=== PATIENT | male | born 1935 | race Caucasian/White ===

== ENCOUNTER 2017-07-16 17:38 | Observation (INO) | payer OTHER ==
--- NOTE | 2017-07-16 17:56 | PDOC ---
History of Present Illness - General History Source: Patient Exam Limitations: No Limitations - History of Present Illness Initial Comments: 07/16/17 18:58 82 y.o male with significant PMHx of COPD, active smoker, CHF (on 5mg of lasix but noncompliant over the past month), Afib (on coumadin), HLD, HTN, and psoriasis, who presents to the emergency room complaining of increased bilateral lower extremity swelling and SOB over the past several weeks. He states that he is unable to walk as many blocks as he used without becoming short of breath. Denies chest pain, cough.The patient notes that he had a mechanical fall onto his knees last week while visiting his daughter, however the lower extremity swelling was present before the fall. He denies any recent travel. Denies fever, chills, nausea, vomiting, abd pain, focal weakness or numbness, headache. Reports compliance with warfarin. Allergies: NKA Social hx: Tobacco use. PCP: Dr. Shellie Leon Scenario Writer: Dr. Guzman Urologist: Dr. Segura <Esmer Beckwith - Last Filed: 07/16/17 19:56> <Enedina Tom - Last Filed: 07/20/17 18:54> - General Chief Complaint: Edema Stated Complaint: LEG SWELLING Time Seen by Provider: 07/16/17 17:55 Past History <Esmer Beckwith - Last Filed: 07/16/17 19:56> - Past Medical History Cardiac Disorders: Yes (AFIB) COPD: Yes HTN: Yes Hypercholesterolemia: Yes - Surgical History Cholecystectomy: Yes - Suicide/Smoking/Psychosocial Hx Smoking History: Current every day smoker Have you smoked in the past 12 months: No Number of Cigarettes Smoked Daily: 6 Information on smoking cessation initiated: Yes 'Breaking Loose' booklet given: 07/16/17 Hx Alcohol Use: No Drug/Substance Use Hx: No Substance Use Type: None <Enedina Tom - Last Filed: 07/20/17 18:54> - Past Medical History Allergies/Adverse Reactions: Allergies Allergy/AdvReac Type Severity Reaction Status Date / Time No Known Allergies Allergy Verified 07/16/17 17:39 Home Medications: Ambulatory Orders Atorvastatin Ca [Lipitor] 20 mg PO HS 01/10/15 Digoxin [Lanoxin -] 0.125 mg PO DAILY 01/10/15 Finasteride [Proscar] 5 mg PO DAILY 01/10/15 Metoprolol Tartrate [Lopressor -] 25 mg PO HS 01/10/15 Metoprolol Tartrate [Lopressor -] 50 mg PO AM 01/10/15 Warfarin Sodium [Coumadin] 6 mg PO DAILY 01/10/15 Albuterol 0.083% Nebulizer Luzmaria [Ventolin 0.083% Nebulizer Soln -] 1 neb NEB Q4H #120 vial 07/19/17 Budesonide/Formeterol Fumarate [SYMBICORT 80/4.5mcg -] 2 puff IH BID #1 inhaler 07/19/17 Furosemide [Lasix -] 40 mg PO DAILY #30 tablet 07/19/17 Lisinopril [Prinivil] 10 mg PO DAILY #30 tablet 07/19/17 Nebulizer Accessories [Adult Aerosol Mask] 1 each MC DAILY #1 each 07/19/17 Nebulizer [Compact Ultrasonic Nebulizer] 1 each MC DAILY #1 each 07/19/17 Triamcinolone Acetonide 1 applic TP BID #1 tube 07/19/17 Review of Systems - Review of Systems Able to Perform ROS?: Yes Comments:: 07/16/17 18:58 GENERAL/CONSTITUTIONAL: No fever or chills. No weakness. HEAD, EYES, EARS, NOSE AND THROAT: No change in vision. No ear pain or discharge. No sore throat. GASTROINTESTINAL: No nausea, vomiting, diarrhea or constipation. GENITOURINARY: No dysuria, frequency, or change in urination. CARDIOVASCULAR: +dyspnea on exertion. No chest pain.. RESPIRATORY: No cough, wheezing, or hemoptysis. MUSCULOSKELETAL: +increased bilateral lower extremity edema. No neck or back pain. SKIN: No rash NEUROLOGIC: No headache, vertigo, loss of consciousness, or change in strength/ sensation. ENDOCRINE: No increased thirst. No abnormal weight change. HEMATOLOGIC/LYMPHATIC: No anemia, easy bleeding, or history of blood clots. ALLERGIC/IMMUNOLOGIC: No hives or skin allergy. <Esmer Beckwith - Last Filed: 07/16/17 19:56> *Physical Exam - Vital Signs Last Vital Signs Temp Pulse Resp BP Pulse Ox 98.5 F 96 H 22 154/93 93 L 07/16/17 17:42 07/16/17 17:42 07/16/17 17:42 07/16/17 17:42 07/16/17 17:42 - Physical Exam Comments: 07/16/17 18:58 GENERAL: Awake, alert, and fully oriented, in no acute distress HEAD: No signs of trauma EYES: PERRLA, EOMI, sclera anicteric, conjunctiva clear ENT: Auricles normal inspection, hearing grossly normal, nares patent, oropharynx clear without exudates. Moist mucosa NECK: Normal ROM, supple, no lymphadenopathy, JVD, or masses LUNGS:Diffuse mild wheezing, but good air movement. No crackles HEART:Irregularly irregular with a rate of 94 . normal S1 and S2, no murmurs, rubs or gallops ABDOMEN: Soft, nontender, normoactive bowel sounds. No guarding, no rebound. No masses EXTREMITIES: There is 2+ pitting edema in the lower extremities that is symmetric to the distal thigh bilaterally. Normal range of motion. No clubbing or cyanosis. No cords, erythema, or tenderness BACK: No midline spinal tenderness in cervical/thoracic/lumbar region NEUROLOGICAL: Normal speech, cranial nerves intact, negative pronator drift, 5/ 5 strength in all 4 extremities, normal sensation to light touch in all 4 extremities, normal cerebellar exam, normal gait, normal reflexes and tone SKIN: Diffuse violaceous papules coalescing into plaques . Warm, Dry, normal turgor. <Esmer Beckwith - Last Filed: 07/16/17 19:56> - Vital Signs Last Vital Signs Temp Pulse Resp BP Pulse Ox 98.5 F 96 H 22 154/93 93 L 07/16/17 17:42 07/16/17 17:42 07/16/17 17:42 07/16/17 17:42 07/16/17 17:42 <Nassef,Yomna - Last Filed: 07/20/17 18:54> ED Treatment Course - LABORATORY CBC & Chemistry Diagram: 07/16/17 18:43 07/16/17 18:43 - RADIOLOGY Radiograph Interpretation: 07/16/17 19:56 EXAM#: TYPE/EXAM: RESULT: [id number] CT/HEAD CT WITHOUT CONTRAST Cranial CT without contrast Clinical information: altered mental status The exam consists of contiguous direct transaxial images. Intravenous contrast was not administered. No prior imaging studies are available at this facility for direct comparison. There is no CT evidence of intracranial hemorrhage. No discrete infarct is identified within the limitations of CT. Mild to moderate periventricular microvascular ischemic gliosis is seen. There is no gross mass lesion. No extra-axial fluid collection is noted. Involutional changes are seen with mild ventricular dilatation. No calvarial defect is identified. Atherosclerotic calcifications are noted along the intracranial vertebral and internal carotid arteries. Impression: No CT evidence of acute intracranial pathology. Mild to moderate periventricular chronic microvascular ischemic changes. Reported By: Gregorio Sagastume MD 07/16/17 1937 <Esmer Beckwith - Last Filed: 07/16/17 19:56> - LABORATORY CBC & Chemistry Diagram: 07/17/17 07:45 07/19/17 07:45 <Enedina Tom - Last Filed: 07/20/17 18:54> Medical Decision Making - Medical Decision Making 07/16/17 18:51 82-year-old male with multiple medical problems including CHF, COPD, psoriasis who presents the emergency department with progressive lower extremity edema and shortness of breath. Vitals remarkable for hypoxia to 93%. Exam with diffuse mild wheezing and 2+ lower extremity edema to the thighs bilaterally. Differential is wide and includes but is not limited to CHF exacerbation, especially in the setting of Lasix noncompliance versus COPD exacerbation. Will obtain ultrasound given edema of the lower extremity to r/o DVT, however patient has been compliant with warfarin and INR has been therapeutic per his report and per . WIll also obtain CXR given CHF exac and basic/ cardiac labs. Per Dr. Leon, pt's daughters also reported he made a statement that he felt the diop were moving and thus Dr. Leon was concerned about neurologic pathology. Pt's neuro exam wnl and non focal. Will check CXR/UA for infection in case of possible delirium, will also obtain CTH. Pt signed out to Dr. Meza for further mgmt/dispo <Enedina Tom - Last Filed: 07/20/17 18:54> *DC/Admit/Observation/Transfer - Attestations Scribe Attestion: 07/16/17 18:58 Documentation prepared by LEONARD Anders, acting as durable medical equipment repairer for Enedina Tom MD. <Eric Beckwithssica - Last Filed: 07/16/17 19:56> - Attestations Physician Attestion: 07/20/17 18:54 I, Dr. Enedina Tom MD, attest that this document has been prepared under my direction and personally reviewed by me in its entirety. I further attest, that it accurately reflects all work, treatment, procedures and medical decision -making performed by me. <Enedina Tom - Last Filed: 07/20/17 18:54> Diagnosis at time of Disposition: CHF (congestive heart failure) Qualifiers: Congestive heart failure type: unspecified Congestive heart failure chronicity : chronic Qualified Code(s): I50.9 - Heart failure, unspecified - Discharge Dispostion Disposition: HOME Condition at time of disposition: Stable
[2017-07-16 18:55] LABS: HEMOGLOBIN 12.6 GM/dl (11.7-16.9)
[2017-07-16 19:01] LABS: BASO % 0.7 % (0-2.0); EOS % 3.7 % (0-4.5); HEMATOCRIT 39.5 % (35.4-49); MCH 27.7 pg (25.7-33.7); MCHC 31.8 g/dl (32.0-35.9); MEAN CELL VOLUME 87.1 fl (80-96); MEAN PLT VOLUME 7.5 fl (7.5-11.1); MONO % 5.6 % (3.8-10.2); PLATELET COUNT 286 K/MM3 (134-434); RBC 4.54 M/mm3 (4.00-5.60); RDW 14.8 % (11.9-15.9)
[2017-07-16 19:08] LABS: ACTIVATED PTT 36.7 SECONDS (24.0-38.9)
[2017-07-16 19:11] LABS: ALBUMIN 3.2 g/dl (3.5-5.0); ALK PHOS 62 U/L (32-92); ANION GAP 8 (8-16); BILIRUBIN,TOTAL 1.4 mg/dl (0.2-1.0); BLOOD UREA NITROGEN 20 mg/dl (7-18); CALCIUM 8.6 mg/dl (8.4-10.2); CHLORIDE 99 mmol/L (98-107); CO2 31 mmol/L (22-28); GLUCOSE,RANDOM 149 mg/dl (74-106); MAGNESIUM 1.7 mg/dL (1.8-2.4); SGOT/AST 25 U/L (10-42); SGPT/ALT 19 U/L (10-40); SODIUM 138 mmol/L (136-145); TOT PROT 6.1 g/dl (6.4-8.3)
[2017-07-16 19:12] LABS: INR 2.78 (0.82-1.09); PROTHROMBIN TIME (PATIENT) 30.5 SEC (10.2-13.0)
--- NOTE | 2017-07-16 19:42 | PDOC ---
*Physical Exam - Vital Signs Last Vital Signs Temp Pulse Resp BP Pulse Ox 98.5 F 96 H 22 154/93 93 L 07/16/17 17:42 07/16/17 17:42 07/16/17 17:42 07/16/17 17:42 07/16/17 17:42 ED Treatment Course - LABORATORY CBC & Chemistry Diagram: 07/16/17 18:43 07/16/17 18:43 - ADDITIONAL ORDERS Additional order review: Laboratory Results 07/16/17 07/16/17 18:43 18:43 PT with INR 30.5 H INR 2.78 H PTT (Actin FS) 36.7 Sodium 138 Potassium 4.0 Chloride 99 Carbon Dioxide 31 H Anion Gap 8 BUN 20 H Creatinine 1.0 Creat Clearance w eGFR > 60 Random Glucose 149 H D Calcium 8.6 Magnesium 1.7 L Total Bilirubin 1.4 H AST 25 ALT 19 Alkaline Phosphatase 62 Troponin I 0.02 Total Protein 6.1 L Albumin 3.2 L 07/16/17 18:43 RBC 4.54 MCV 87.1 MCHC 31.8 L RDW 14.8 MPV 7.5 Neutrophils % 74.0 Lymphocytes % 16.0 Monocytes % 5.6 Eosinophils % 3.7 Basophils % 0.7 Progress Note - Progress Note Progress Note: Care of this patient was transferred to [facility] from Dr. Garcia at 1900 hrs. Patient is an 82-year-old male who comes in with multiple medical problems and occluding A. fib, CHF, hypertension. Patient was brought in by his daughters for evaluation because he said he was having difficulty breathing and his legs were more swollen than usual. Patient has a workup pending including labs, EKG, chest x-ray and ultrasound Doppler's. Patient also has bilateral knee x-rays pending as he did fall a few days ago. Chest x-ray does show some mild to moderate failure Bilateral knee x-rays are negative for any acute pathology Patient had a CAT scan ordered as there was a questionable put history of an episode of altered mental. There is no evidence of altered mental status here in the emergency room. Patient had bilateral DOPPLERS OF THE LEGS WERE NEGATIVE FOR DVT Patient had a markedly elevated BNP of over 2600 Patient started on Lasix here in the emergency room and will be admitted to the hospitalist service. Dr. Carlson will be the admitting doctor . Signout given to the admitting hospitalist, who accepts the patient. Discussed plan with the patient family at bedside, Patient and family aware of the plan and agree. Patient is clinically unchanged and stable. *DC/Admit/Observation/Transfer Diagnosis at time of Disposition: CHF (congestive heart failure) Qualifiers: Congestive heart failure type: unspecified Congestive heart failure chronicity : chronic Qualified Code(s): I50.9 - Heart failure, unspecified - Discharge Dispostion Disposition: HOME Condition at time of disposition: Stable Admit: Yes - Referrals - Patient Instructions - Post Discharge Activity
[2017-07-16 20:48] LABS: N-TERMINAL BNP 2655.54 pg/ml (5-450)
[2017-07-16] MEDS ORDERED: FUROSEMIDE 40 MG/4 ML INJECTABLE VIAL IVPUSH ONE (21:03)
[2017-07-16] MEDS ORDERED: FUROSEMIDE 40 MG/4 ML INJECTABLE VIAL ONE (21:09)
[2017-07-16 22:37] VITALS: BMI 25.3
[2017-07-16 22:38] LABS: PH,URINE 5.5 (4.5-8); URINE APPEARANCE Clear; URINE BILIRUBIN Negative (NEGATIVE); URINE GLUCOSE (UA) Negative (NEGATIVE); URINE KETONE Negative (NEGATIVE); URINE NITRITE Negative (NEGATIVE); URINE PROTEIN Negative (NEGATIVE); URINE UROBILINOGEN 0.2 (0.2-1.0)
[2017-07-16 22:40] LABS: URINE BLOOD 2+ (NEGATIVE); URINE COLOR YELLOW
[2017-07-16 22:53] LABS: URINE BACTERIA FEW /hpf (NEGATIVE); URINE WBC 0-2 (0-2)
--- NOTE | 2017-07-16 23:00 | HP ---
CHIEF COMPLAINT: SOB, Lower Extremity swelling PCP: Dr. Shellie Leon Bench Boring Machine Operator: Dr. Guzman Urologist: Dr. Segura HISTORY OF PRESENT ILLNESS: This is a 82 y/o man who presents to the ED with SOB and bilateral lower extremity edema x several weeks. Patient reports not taking his Lasix for > 1 month secondary to "running out". Patient reports having increased SOB and ANGULO when walking a few blocks. Per ED record: Patient denies fever, chills, dizziness, CP, palpitations, AP, N/V/D, constipation, dysuria. ER course was notable for: (1) BNP 2655 (2) Chest Xray image- interstitial markings, pulmonary vascular congestion, report pending (3) CT Head- no ICH (4) Doppler B/L lower ext- negative DVT Recent Travel: None PAST MEDICAL HISTORY: CHF Afib (on Coumadin) COPD HTN HLD Psoriasis Active Smoker PAST SURGICAL HISTORY: Cholecystectomy Social History: Smoking: Active Alcohol: None Drugs: None Lives with family Family History: Non-Contributory Allergies No Known Allergies Allergy (Verified 07/16/17 17:39) HOME MEDICATIONS: Home Medications Medication Instructions Recorded Atorvastatin Ca [Lipitor -] 20 mg PO HS 01/10/15 Digoxin [Lanoxin -] 0.125 mg PO DAILY 01/10/15 Finasteride [Proscar] 5 mg PO DAILY 01/10/15 Furosemide [Lasix -] 20 mg PO DAILY 01/10/15 Metoprolol Tartrate [Lopressor -] 25 mg PO HS 01/10/15 Metoprolol Tartrate [Lopressor -] 50 mg PO AM 01/10/15 Warfarin Sodium [Coumadin] 6 mg PO DAILY 01/10/15 REVIEW OF SYSTEMS CONSTITUTIONAL: Absent: fever, chills, diaphoresis, generalized weakness, malaise, loss of appetite, weight change HEENT: Absent: rhinorrhea, nasal congestion, throat pain, throat swelling, difficulty swallowing, mouth swelling, ear pain, eye pain, visual changes CARDIOVASCULAR: peripheral edema Absent: chest pain, syncope, palpitations, irregular heart rate, lightheadedness RESPIRATORY: shortness of breath, dyspnea with exertion, orthopnea Absent: cough, wheezing, stridor, hemoptysis GASTROINTESTINAL: Absent: abdominal pain, abdominal distension, nausea, vomiting, diarrhea, constipation, melena, hematochezia GENITOURINARY: Absent: dysuria, frequency, urgency, hesitancy, hematuria, flank pain, genital pain MUSCULOSKELETAL: Absent: myalgia, arthralgia, joint swelling, back pain, neck pain SKIN: plaque lesions Absent: rash, itching, pallor HEMATOLOGIC/IMMUNOLOGIC: Absent: easy bleeding, easy bruising, lymphadenopathy, frequent infections ENDOCRINE: Absent: unexplained weight gain, unexplained weight loss, heat intolerance, cold intolerance NEUROLOGIC: Absent: headache, focal weakness or paresthesias, dizziness, unsteady gait, seizure, mental status changes, bladder or bowel incontinence PSYCHIATRIC: Absent: anxiety, depression, suicidal or homicidal ideation, hallucinations. PHYSICAL EXAMINATION Vital Signs - 24 hr 07/16/17 07/16/17 07/16/17 17:42 20:10 21:53 Temperature 98.5 F Pulse Rate 96 H 102 H Pulse Rate [ 100 H Right] Respiratory Rate Blood Pressure 154/93 152/84 Blood Pressure 160/93 [Right] O2 Sat by Pulse 93 L 100 100 Oximetry (%) GENERAL: Awake, alert, and fully oriented, in no acute distress. HEAD: Normal with no signs of trauma. EYES: Pupils equal, round and reactive to light, extraocular movements intact, sclera anicteric, conjunctiva clear. No lid lag. EARS, NOSE, THROAT: Ears normal, nares patent, oropharynx clear without exudates. Moist mucous membranes. NECK: Normal range of motion, supple without lymphadenopathy, JVD, or masses. LUNGS: Breath sounds scattered coarse rhonchi, rales at bases. No accessory muscle use. HEART: Irregular rate and rhythm, normal S1 and S2 without murmur, rub or gallop. ABDOMEN: Soft, nontender, not distended, normoactive bowel sounds, no guarding, no rebound, no masses. No hepatomegaly or splenomegaly. MUSCULOSKELETAL: Normal range of motion at all joints. No bony deformities or tenderness. No CVA tenderness. UPPER EXTREMITIES: 2+ pulses, warm, well-perfused. No cyanosis. No clubbing. No peripheral edema. LOWER EXTREMITIES: 2+ pulses, warm, well-perfused. No calf tenderness. +2 B/L pitting peripheral edema from foot to thigh. NEUROLOGICAL: Cranial nerves II-XII intact. Normal speech. Gait not observed. PSYCHIATRIC: Cooperative. Good eye contact. Appropriate mood and affect. SKIN: Warm, dry, normal turgor, no rashes. normal capillary refill. +plaque like lesions to arms, legs- silver to yellow crusting noted Laboratory Results - last 24 hr 07/16/17 07/16/17 07/16/17 18:23 18:43 18:43 WBC 9.0 RBC 4.54 Hgb 12.6 D Hct 39.5 MCV 87.1 MCH 27.7 MCHC 31.8 L RDW 14.8 Plt Count 286 MPV 7.5 Neutrophils % 74.0 Lymphocytes % 16.0 Monocytes % 5.6 Eosinophils % 3.7 Basophils % 0.7 PT with INR 30.5 H INR 2.78 H PTT (Actin FS) 36.7 Sodium Potassium Chloride Carbon Dioxide Anion Gap BUN Creatinine Creat Clearance w eGFR Random Glucose Calcium Magnesium Total Bilirubin AST ALT Alkaline Phosphatase Troponin I B-Natriuretic Peptide 2655.54 H Total Protein Albumin Urine Color Urine Appearance Urine pH Ur Specific [place] Urine Protein Urine Glucose (UA) Urine Ketones Urine Blood Urine Nitrite Urine Bilirubin Urine Urobilinogen Urine RBC Urine WBC Urine Bacteria Digoxin 0.9782 07/16/17 07/16/17 18:43 22:30 WBC RBC Hgb Hct MCV MCH MCHC RDW Plt Count MPV Neutrophils % Lymphocytes % Monocytes % Eosinophils % Basophils % PT with INR INR PTT (Actin FS) Sodium 138 Potassium 4.0 Chloride 99 Carbon Dioxide 31 H Anion Gap 8 BUN 20 H Creatinine 1.0 Creat Clearance w eGFR > 60 Random Glucose 149 H D Calcium 8.6 Magnesium 1.7 L Total Bilirubin 1.4 H AST 25 ALT 19 Alkaline Phosphatase 62 Troponin I 0.02 B-Natriuretic Peptide Total Protein 6.1 L Albumin 3.2 L Urine Color Yellow Urine Appearance Clear Urine pH 5.5 Ur Specific [place] 1.010 Urine Protein Negative Urine Glucose (UA) Negative Urine Ketones Negative Urine Blood 2+ H Urine Nitrite Negative Urine Bilirubin Negative Urine Urobilinogen 0.2 Urine RBC 10-20 Urine WBC 0-2 Urine Bacteria Few Digoxin ASSESSMENT/PLAN: 82 y/o man with a PMHx of: Afib (on Coumadin), CHF, COPD, HTN, HLD. Placed on Tele Observation for Acute CHF Exacerbation. Plan: 1. Cardiology CHF- Acute Exacerbation secondary to non-compliance (ran out, per pt), BNP 2600 , Chest Xray image mild to moderate pulmonary vascular congestion, given Lasix in the ED, will continue Lasix. Appreciate Cardiology consult. Continue cardiac monitoring. daily weights, strict INOs, elevate extremities. Repeat BMP in am patient counseled on importance of taking diuretics as prescribed, patient is agreeable. Low Na Diet Afib- Rate controlled, EKG reviewed. [id number] 4. Patient denies chest pain or palpitations. Digoxin 0.982. Continue Digoxin, Coumadin. Daily INRs HTN- Controlled- Continue Metoprolol with parameters HLD- Continue Lipitor, monitor LFTs 2. Pulmonology COPD- Duonebs, O2, smoking cessation discussed with patient, monitor spo2 3. BPH- Continue Proscar 4. Endocrinology Hyperglycemia- slightly above baseline. No glucose noted in urine, likely secondary to diet. Repeat BMP in am 5. FEN- Fluid restriction, Replete lytes prn, Low Na Diet 6. DVT Prophylaxis- OOB, Continue Coumadin Code Status: Full Code Dispo: Tele Obs Problem List - Problem (1) Acute exacerbation of CHF (congestive heart failure) Code(s): I50.9 - HEART FAILURE, UNSPECIFIED (2) Bilateral lower extremity edema Code(s): R60.0 - LOCALIZED EDEMA (3) COPD (chronic obstructive pulmonary disease) Code(s): J44.9 - CHRONIC OBSTRUCTIVE PULMONARY DISEASE, UNSPECIFIED (4) Afib Code(s): I48.91 - UNSPECIFIED ATRIAL FIBRILLATION (5) DVT prophylaxis Code(s): LXB9629 - Visit type - Emergency Visit Emergency Visit: Yes ED Registration Date: 07/16/17 Care time: The patient presented to the Emergency Department on the above date and was hospitalized for further evaluation of their emergent condition. - New Patient This patient is new to me today: Yes Date on this admission: 07/16/17 - Critical Care Critical Care patient: No
[2017-07-17 08:14] LABS: BASO % 1.2 % (0-2.0); EOS % 5.7 % (0-4.5); HEMATOCRIT 39.6 % (35.4-49); HEMOGLOBIN 12.2 GM/dl (11.7-16.9); LYMPH % 16.9 % (8-40); MCH 27.3 pg (25.7-33.7); MCHC 30.9 g/dl (32.0-35.9); MEAN CELL VOLUME 88.4 fl (80-96); MONO % 9.3 % (3.8-10.2); NEUT % 66.9 % (42.8-82.8); PLATELET COUNT 249 K/MM3 (134-434); RBC 4.48 M/mm3 (4.00-5.60); RDW 15.1 % (11.9-15.9); WHITE BLOOD COUNT 8.8 K/mm3 (4.0-10.8)
[2017-07-17 08:19] LABS: INR 2.48 (0.82-1.09); PROTHROMBIN TIME (PATIENT) 27.3 SEC (10.2-13.0)
[2017-07-17 08:25] LABS: ANION GAP 6 (8-16); BLOOD UREA NITROGEN 18 mg/dl (7-18); CALCIUM 8.6 mg/dl (8.4-10.2); CHLORIDE 101 mmol/L (98-107); CO2 33 mmol/L (22-28); CREATININE 0.9 mg/dl (0.6-1.3); GLUCOSE,RANDOM 97 mg/dl (74-106); SODIUM 140 mmol/L (136-145)
--- NOTE | 2017-07-17 08:52 | PN ---
Physical Exam: SUBJECTIVE: Patient seen and examined Reports SOB improved, c/o generalized itching /rash ( hx of of psoriasis), denies cp, palpitations,abdominal pain, N/V/D or urinary symptoms. OBJECTIVE: Vital Signs Period Temp Pulse Resp BP Sys/Molina Pulse Ox Last 24 Hr 97.3 F-98.6 F 90-102 18-22 114-171/72-93 93-100 GENERAL: The patient is awake, alert, and fully oriented, in no acute distress. HEAD: Normal with no signs of trauma. EYES: PERRL, extraocular movements intact, sclera anicteric, conjunctiva clear. No ptosis. ENT: Ears normal, nares patent, oropharynx clear without exudates, moist mucous membranes. NECK: Trachea midline, full range of motion, supple. LUNGS: Breath sounds diminished,c + exp wheezing, no crackles, no accessory muscle use. HEART: Irregular ABDOMEN: Soft, nontender, nondistended, normoactive bowel sounds, no guarding, no rebound, no hepatosplenomegaly, no masses. EXTREMITIES: 2+ pulses, warm, well-perfused, edema, 1-2+, NEUROLOGICAL: Cranial nerves II through XII grossly intact. Normal speech, gait not observed. PSYCH: Normal mood, normal affect. SKIN: Warm, dry, normal turgor, generalized psoriasis rashes or lesions, more to his lower extremities. Laboratory Results - last 24 hr 07/16/17 07/16/17 07/16/17 18:23 18:43 18:43 WBC 9.0 RBC 4.54 Hgb 12.6 D Hct 39.5 MCV 87.1 MCH 27.7 MCHC 31.8 L RDW 14.8 Plt Count 286 MPV 7.5 Neutrophils % 74.0 Lymphocytes % 16.0 Monocytes % 5.6 Eosinophils % 3.7 Basophils % 0.7 PT with INR 30.5 H INR 2.78 H PTT (Actin FS) 36.7 Sodium Potassium Chloride Carbon Dioxide Anion Gap BUN Creatinine Creat Clearance w eGFR Random Glucose Calcium Magnesium Total Bilirubin AST ALT Alkaline Phosphatase Troponin I B-Natriuretic Peptide 2655.54 H Total Protein Albumin Urine Color Urine Appearance Urine pH Ur Specific [place] Urine Protein Urine Glucose (UA) Urine Ketones Urine Blood Urine Nitrite Urine Bilirubin Urine Urobilinogen Urine RBC Urine WBC Urine Bacteria Digoxin 0.9782 07/16/17 07/16/17 18:43 22:30 WBC RBC Hgb Hct MCV MCH MCHC RDW Plt Count MPV Neutrophils % Lymphocytes % Monocytes % Eosinophils % Basophils % PT with INR INR PTT (Actin FS) Sodium 138 Potassium 4.0 Chloride 99 Carbon Dioxide 31 H Anion Gap 8 BUN 20 H Creatinine 1.0 Creat Clearance w eGFR > 60 Random Glucose 149 H D Calcium 8.6 Magnesium 1.7 L Total Bilirubin 1.4 H AST 25 ALT 19 Alkaline Phosphatase 62 Troponin I 0.02 B-Natriuretic Peptide Total Protein 6.1 L Albumin 3.2 L Urine Color Yellow Urine Appearance Clear Urine pH 5.5 Ur Specific [place] 1.010 Urine Protein Negative Urine Glucose (UA) Negative Urine Ketones Negative Urine Blood 2+ H Urine Nitrite Negative Urine Bilirubin Negative Urine Urobilinogen 0.2 Urine RBC 10-20 Urine WBC 0-2 Urine Bacteria Few Digoxin Active Medications Generic Name Dose Route Start Last Admin Trade Name Freq PRN Reason Stop Dose Admin Atorvastatin Calcium 20 mg 07/16/17 22:00 Lipitor - PO HS [facility] Digoxin 0.125 mg 07/17/17 10:00 Lanoxin - PO DAILY GINA Finasteride 5 mg 07/17/17 10:00 Proscar - PO DAILY GINA Furosemide 40 mg 07/17/17 07:30 Lasix Injection - IVPUSH BID@0600,1400 [facility] Metoprolol Tartrate 50 mg 07/17/17 07:00 Lopressor - PO AM GINA Metoprolol Tartrate 25 mg 07/17/17 22:00 Lopressor - PO HS [facility] Triamcinolone Acetonide 1 applic 07/17/17 10:00 Aristocort 0.1% Cream - TP BID [facility] Warfarin Sodium 6 mg 07/17/17 18:00 Coumadin - PO DAILY@1800 [facility] * IMAGING Chest Xray image: Interstitial markings, pulmonary vascular congestion, report pending CT Head: No ICH Doppler B/L lower ext: Negative for DVT EKG: A- fib ASSESSMENT/PLAN: This is a 82 y/o man with multiple medical problems,who presents to the ED with SOB and bilateral lower extremity edema x several weeks. Admitted with CHF exacerbation PMD Dr. Cardona Cardiology Dr. erickson, tele # [phone] *Acute CHF exacerbation- secondary to non-compliance (ran out, per pt) -BNP 2600 -Chest Xray image mild to moderate pulmonary vascular congestion, - will cont on IV Lasix ,BB - daily weight - monitor I&O's - tele monitoring -Trop neg x1 - cardiology consult - to keep lower ext elevated - echo ordered - low mg - replacement ordered *Afib- Heart Rate controlled, -[id number] - will cont on Coumadin and Digoxin - Dig level normal - INR level therapeutic *HTN- BP elevated - Continue Metoprolol with parameters - will monitor BP closely *HLD- -Continue Lipitor, -LFTs stable,except T.B 1.4( chronic) - will f/u- asymptomatic *COPD- ex-smoker ,reports quit 2 months ago - Neb tx - O2 PRN to keep O2 sat > 90% *BPH- Continue Proscar *Hyperglycemia- slightly above baseline upon admission, denies hx of DM - BS stable now * Psoriasis - follows with Derm Dr. Maxwell -will cont on home med triamcinolone * Knee pain/ swelling ,reports s/p fall - s/p knee X'ray ,report pending *FEN- Fluid restriction, Replete lytes prn, Low Na Diet *DVT Prophylaxis- OOB, Continue Coumadin Code Status: Full Code Visit type - Emergency Visit Emergency Visit: Yes ED Registration Date: 07/16/17 Care time: The patient presented to the Emergency Department on the above date and was hospitalized for further evaluation of their emergent condition. - New Patient This patient is new to me today: Yes Date on this admission: 07/17/17 - Critical Care Critical Care patient: No
[2017-07-17] MEDS ORDERED: ALBUTEROL SO4 2.5/IPRATROPIUM 0.5 INH SOL 3 ML VIAL.NEB. NEB PRN ×2 (08:53→09:44)
[2017-07-17] MEDS ORDERED: MAGNESIUM SULF 50% (8.12 MEQ/2 ML-1 GM VIAL) IVPB ONE (09:10)
[2017-07-17] MEDS: METOPROLOL TARTRATE 50 MG TABLET (FP) PO SCH (09:15)
[2017-07-17] MEDS: FUROSEMIDE 40 MG/4 ML INJECTABLE VIAL IVPUSH SCH ×3 (09:15→17:14)
[2017-07-17] MEDS: DIGOXIN 0.125 MG TABLET (FP) PO SCH (09:26)
[2017-07-17] MEDS: FINASTERIDE 5 MG TABLET (FP) PO SCH (09:26)
[2017-07-17] MEDS: TRIAMCINOLONE ACET 0.1% CREAM 80 GM TUBE TP SCH ×2 (09:27→22:32)
[2017-07-17] MEDS ORDERED: MAGNESIUM 1GM/D5W - 1 GM/100 ML IVPB IVPB ONE (09:30)
[2017-07-17] MEDS ORDERED: TRIAMCINOLONE ACET 0.1% CREAM 15 GM TUBE TP SCH (10:00)
[2017-07-17] MEDS ORDERED: FUROSEMIDE 40 MG/4 ML INJECTABLE VIAL IVPUSH SCH (10:00)
[2017-07-17] MEDS ORDERED: WARFARIN NA 5 MG TABLET (UD) PO SCH (10:00)
[2017-07-17] MEDS ORDERED: DIGOXIN 0.125 MG TABLET (FP) PO SCH (10:00)
[2017-07-17 13:26] LABS: BILIRUBIN,TOTAL 1.3 mg/dl (0.2-1.0); MAGNESIUM 1.6 mg/dL (1.8-2.4)
--- NOTE | 2017-07-17 16:17 | CONSULT ---
Consult Consult Specialty:: Cardiology Referred by:: Dr Rothman Reason for Consultation:: CHF - History of Present Illness Chief Complaint: ANGULO, VLADIMIR History of Present Illness: 82 y/o man, lifelomg smoker,with HTN, HLD, CAD -> found after abnl stress test in 2002 -> cath showing 100% mLAD, 100% PDA, 100% post branch of RCA, 50% mLCX - > med management, pre-DM, psoriasis, chronic VLADIMIR, nl EF on echo from 05/10, here with worsening ANGULO, worsening VLADIMIR and a 5 lb wt gain for over a month. he denies PND or orthopnea. He denies CP, palpitation sor dizziness He was found wit elevated BNP at 2655, overall unremarkable CXR -> diuresed with IV lasaix -> feels better Echo (05/01/16) -. mild LAE, nl EF 55%, mild apical; HK, mild MR, mild-mod TR, PASP 35, Asc A 3.7 Carotid dupplex (05/01/16) -> mild heterogenous plaque b/l. w/o HD sig lesions AAA (05/01/16) -> normal - History Source History Provided By: Patient, Medical Record - Past Medical History Cardio/Vascular: Yes: AFIB (chronic , on coumadin), HTN, Hyperlipdemia Pulmonary: Yes: COPD Endocrine: Yes: Other (pre-diabetes) Dermatology: Yes: Other (psoriasis) Additional Medical History: old clot in lesser saphenous vein on the left since 01/06) - Past Surgical History Past Surgical History: Yes: Cholecystectomy - Alcohol/Substance Use Hx Alcohol Use: No - Smoking History Smoking history: Current every day smoker (has somekd for 65 yrs) Have you smoked in the past 12 months: No Aproximately how many cigarettes per day: 6 - Social History Usual Living Arrangement: With Child Occupation: Retired PO Home Medications - Allergies Allergies/Adverse Reactions: Allergies Allergy/AdvReac Type Severity Reaction Status Date / Time No Known Allergies Allergy Verified 07/16/17 17:39 - Home Medications Home Medications: Ambulatory Orders Atorvastatin Ca [Lipitor -] 20 mg PO HS 01/10/15 Digoxin [Lanoxin -] 0.125 mg PO DAILY 01/10/15 Finasteride [Proscar] 5 mg PO DAILY 01/10/15 Furosemide [Lasix -] 20 mg PO DAILY 01/10/15 Metoprolol Tartrate [Lopressor -] 25 mg PO HS 01/10/15 Metoprolol Tartrate [Lopressor -] 50 mg PO AM 01/10/15 Warfarin Sodium [Coumadin] 6 mg PO DAILY 01/10/15 Family Disease History - Family Disease History Family History: Unremarkable Review of Systems - Review of Systems Constitutional: denies: No Symptoms, Chills, Diaphoresis, Fever, Lethargy, Loss of Appetite, Malaise, Night Sweats, Unintentional Wgt. Loss, Weakness, Other Eyes: denies: No Symptoms, Blind Spots, Blurred Vision, Double Vision, Eye Pain , Floaters, Photophobia, Recent Change in Vision, Other HENT: denies: No Symptoms, Difficult Swallowing, Ear Discharge, Ear Pain, Epistaxis, Gingival Bleeding, Hearing Loss, Mouth Swelling, Nasal Congestion, Ocular Prosthesis, Throat Pain, Toothache, Ringing in Ears, Other Neck: denies: No Symptoms, Decreased ROM, Lumps, Pain on Movement, Stiffness, Swollen Glands, Tenderness, Other Cardiovascular: reports: Edema, Shortness of Breath Respiratory: reports: SOB on Exertion Gastrointestinal: denies: No Symptoms, Abdominal Pain, Bloating, Constipation, Diarrhea, Dysphagia, Indigestion, Melena, Nausea, Rectal Bleeding, Vomiting, Vomiting Blood, Other Genitourinary: denies: No Symptoms, Burning, Discharge, Dysuria, Flank Pain, Frequency, Hematuria, Incontinence, Lesions, Menses, Pain, Testicular Mass, Testicular Pain, Testicular Swelling, Urgency, Vaginal Bleeding, Other Musculoskeletal: reports: Other (fella week ago -. tripped) Neurological: denies: No Symptoms, Change in LOC, Change in Speech, Confusion, Dizziness, Headache, Incoordination, Numbness, Parasthesia, Pre-Existing Deficit , Seizure, Syncope, Tremors, Unsteady Gait, Weakness, Other Physical Exam Vital Signs: Vital Signs Temperature 97.8 F 07/17/17 13:01 Pulse Rate 79 07/17/17 13:01 Respiratory Rate 18 07/17/17 13:01 Blood Pressure 97/53 07/17/17 13:01 O2 Sat by Pulse Oximetry (%) 96 07/17/17 08:04 Constitutional: No: No Distress Eyes: Yes: Conjunctiva Clear HENT: Yes: Atraumatic Neck: Yes: Supple Cardiovascular: Yes: Pulse Irregular. No: Gallop, Murmur, Rub Respiratory: No: Rales, Rhonchi, Wheezes Gastrointestinal: Yes: Normal Bowel Sounds, Soft. No: Tenderness Extremities: Yes: Other (psoriasis lesions) Edema: Yes Edema: LLE: Trace, RLE: Trace Peripheral Pulses WNL: Yes Neurological: Yes: Alert, Oriented Psychiatric: Yes: Alert, Oriented Labs: CBC, BMP 07/17/17 07:45 07/17/17 07:45 Imaging - Results Chest X-ray: Report Reviewed, Image Reviewed EKG: Report Reviewed, Image Reviewed (afib, LASD, RBBB) Assessment/Plan 82 yo male with fabby above history, here with CHF,at least diatsolic (EF wa snl in 05/10) No evidence of ACS. Pt admits to not being compliant with salt intake VLADIMIR neg for DVT, but shows old clot in lesser saphenous vein on the left (same as in 01/06) Rec: Cont lasix at current dose Follow labs Replete lytes Follow on echo results -. based on EF, meds may need adjustment Thanks! We ll follow! D/W pt and daughters at bedside
[2017-07-17] MEDS: WARFARIN NA 3 MG TABLET PO SCH (17:14)
--- NOTE | 2017-07-17 18:56 | EKG ---
Test Reason : Blood Pressure : / mmHG Vent. Rate : 093 BPM Atrial Rate : 117 BPM P-R Int : 000 ms QRS Dur : 124 ms QT Int : 364 ms P-R-T Axes : 000 -79 080 degrees QTc Int : 452 ms ATRIAL FIBRILLATION LEFT AXIS DEVIATION RIGHT BUNDLE BRANCH BLOCK NONSPECIFIC ST AND T WAVE ABNORMALITY ABNORMAL ECG NO PREVIOUS ECGS AVAILABLE Confirmed by CLEOPATRA PARISH MD ([id number]) on 07/17/2017 6:56:36 PM Referred By: DR HURD Confirmed By:CLEOPATRA PARISH MD
[2017-07-17] MEDS ORDERED: ATORVASTATIN CA 20 MG TABLET (FP) PO SCH (22:00)
[2017-07-17] MEDS: METOPROLOL TARTRATE 25 MG TABLET (FP) PO SCH (22:31)
[2017-07-17] MEDS: ATORVASTATIN CA 20 MG TABLET (FP) PO SCH (22:31)
[2017-07-18] MEDS: METOPROLOL TARTRATE 50 MG TABLET (FP) PO SCH (06:19)
[2017-07-18] MEDS: FUROSEMIDE 40 MG/4 ML INJECTABLE VIAL IVPUSH SCH (06:19)
[2017-07-18] MEDS: TRIAMCINOLONE ACET 0.1% CREAM 80 GM TUBE TP SCH ×3 (09:46→21:15)
[2017-07-18] MEDS: DIGOXIN 0.125 MG TABLET (FP) PO SCH (09:46)
[2017-07-18] MEDS: FINASTERIDE 5 MG TABLET (FP) PO SCH (09:46)
--- NOTE | 2017-07-18 10:16 | PN ---
Physical Exam: SUBJECTIVE: Patient seen and examined, ambulatory at bedside, denies any chest pain or shortness of breath. OBJECTIVE: patient is a 82 y/o male with a past medical history of CHF, Afib ( on Coumadin), COPD, HTN, HLD, Psoriasis, tobacco smoker. Patient was admitted from the emergency department for emergent condition. Vital Signs Period Temp Pulse Resp BP Sys/Molina Pulse Ox Last 24 Hr 97.7 F-98.5 F 74-98 16-18 97-136/53-81 95-96 GENERAL: The patient is awake, alert, and fully oriented, in no acute distress. HEAD: Normal with no signs of trauma. EYES: PERRL, extraocular movements intact, sclera anicteric, conjunctiva clear. No ptosis. ENT: Ears normal, nares patent, oropharynx clear without exudates, moist mucous membranes. NECK: Trachea midline, full range of motion, supple. LUNGS: Breath sounds equal, billateral inspiratory wheeze, diminished to bases, no crackles, no accessory muscle use. HEART: Regular rate and rhythm, S1, S2 without murmur, rub or gallop. ABDOMEN: Soft, nontender, nondistended, normoactive bowel sounds, no guarding, no rebound, no hepatosplenomegaly, no masses. EXTREMITIES: 2+ pulses, warm, well-perfused, +1 edema, bilateral lower extremity plaque psoriasis NEUROLOGICAL: Cranial nerves II through XII grossly intact. Normal speech, gait not observed. PSYCH: Normal mood, normal affect. SKIN: Warm, dry, normal turgor, no rashes or lesions noted Laboratory Results - last 24 hr 07/17/17 07/17/17 07:42 07:42 Magnesium 1.6 L Total Bilirubin 1.3 H Troponin I 0.03 Active Medications Generic Name Dose Route Start Last Admin Trade Name Freq PRN Reason Stop Dose Admin Albuterol/Ipratropium 1 amp 07/17/17 09:44 Duoneb - NEB Q6H PRN SHORTNESS OF BREATH Atorvastatin Calcium 20 mg 07/16/17 22:00 07/17/17 22:31 Lipitor - PO 20 mg HS GINA Administration Digoxin 0.125 mg 07/17/17 10:00 07/18/17 09:46 Lanoxin - PO 0.125 mg DAILY GINA Administration Finasteride 5 mg 07/17/17 10:00 07/18/17 09:46 Proscar - PO 5 mg DAILY GINA Administration Furosemide 40 mg 07/17/17 18:00 07/18/17 06:19 Lasix Injection - IVPUSH 40 mg BID@0600,1800 GINA Administration Metoprolol Tartrate 50 mg 07/17/17 08:45 07/18/17 06:19 Lopressor - PO 50 mg AM GINA Administration Metoprolol Tartrate 25 mg 07/17/17 22:00 07/17/17 22:31 Lopressor - PO 25 mg HS GINA Administration Triamcinolone Acetonide 1 applic 07/17/17 10:00 07/18/17 09:46 Triamcinolone Acetonide TP 1 applic BID GINA Administration Warfarin Sodium 6 mg 07/17/17 18:00 07/17/17 17:14 Coumadin - PO 6 mg DAILY@1800 GINA Administration IMAGING Chest Xray image: Interstitial markings, pulmonary vascular congestion chest xray (07/18/17): right posterior costophrenic angle, blunting indicative of fluid. CT Head: No ICH Doppler B/L lower ext: Negative for DVT EKG: A- fib ASSESSMENT/PLAN: 1) cardiovascular acute diastolic congestive heart failure - chest xray reviewed, 2kg weight loss noted, decrease lasix to 40mg iv qd, pending cardiology re-eval - echo grade II diastolic dysfunction afib - rate controlled, continue digoxin - continue coumadin inr therepeutic hypertension - b/p at goal, continue metoprolol hyperlipidemia - continue lipitor 2) pulm copd - active smoker as per daughter, wheezing noted on exam, start symbicort - continue nebulizers duonebs prn - follow up with pulmonary as outpatient 3) derm Psoriasis - follows with Derm Dr. Maxwell -will cont on home med triamcinolone 4) BPH - Continue Proscar *FEN- Fluid restriction, Replete lytes prn, Low Na Diet *DVT Prophylaxis- OOB, Continue Coumadin Code Status: Full Code Visit type - Emergency Visit Emergency Visit: Yes ED Registration Date: 07/16/17 Care time: The patient presented to the Emergency Department on the above date and was hospitalized for further evaluation of their emergent condition. - New Patient This patient is new to me today: Yes Date on this admission: 07/18/17 - Critical Care Critical Care patient: No - Discharge Referral Referred to [facility] Med P.C.: No
[2017-07-18] MEDS ORDERED: ALBUTEROL SO4 2.5/IPRATROPIUM 0.5 INH SOL 3 ML VIAL.NEB. NEB ONE (11:30)
[2017-07-18] MEDS ORDERED: PT OWN MED DRAWER 7, Y5N ONE ×2 (11:35→21:08)
[2017-07-18] MEDS: BUDESONIDE/FORMETEROL FUMARATE 80/4.5 mcg INHALER IH SCH ×2 (11:42→21:10)
[2017-07-18] MEDS ORDERED: MAGNESIUM SULFATE 2 GM in SODIUM CHLORIDE 100 ML IVPB ONE (12:15)
[2017-07-18] MEDS ORDERED: MAGNESIUM SULF 50% (8.12 MEQ/2 ML-1 GM VIAL) IVPB ONE (13:15)
--- NOTE | 2017-07-18 15:34 | PN ---
Progress Note, Physician History of Present Illness: Doing well. SOB has improved with IV diuretics. - Current Medication List Current Medications: Active Medications Albuterol/Ipratropium (Duoneb -) 1 amp NEB Q6H PRN PRN Reason: SHORTNESS OF BREATH Atorvastatin Calcium (Lipitor -) 20 mg PO HS [facility] Last Admin: 07/17/17 22:31 Dose: 20 mg Budesonide/Formoterol Fumarate (Symbicort 80/4.5mcg -) 2 puff IH BID [facility] Last Admin: 07/18/17 11:42 Dose: 2 puff Digoxin (Lanoxin -) 0.125 mg PO DAILY [facility] Last Admin: 07/18/17 09:46 Dose: 0.125 mg Finasteride (Proscar -) 5 mg PO DAILY [facility] Last Admin: 07/18/17 09:46 Dose: 5 mg Furosemide (Lasix -) 40 mg PO DAILY [facility] Lisinopril (Prinivil) 10 mg PO DAILY [facility] Metoprolol Tartrate (Lopressor -) 50 mg PO AM [facility] Last Admin: 07/18/17 06:19 Dose: 50 mg Metoprolol Tartrate (Lopressor -) 25 mg PO HS [facility] Last Admin: 07/17/17 22:31 Dose: 25 mg Triamcinolone Acetonide (Triamcinolone Acetonide) 1 applic TP BID [facility] Last Admin: 07/18/17 09:46 Dose: 1 applic Warfarin Sodium (Coumadin -) 6 mg PO DAILY@1800 [facility] Last Admin: 07/17/17 17:14 Dose: 6 mg - Objective Vital Signs: Vital Signs Temperature 97.5 F L 07/18/17 14:00 Pulse Rate 78 07/18/17 14:00 Respiratory Rate 19 07/18/17 14:00 Blood Pressure 106/65 07/18/17 14:00 O2 Sat by Pulse Oximetry (%) 92 L 07/18/17 14:00 Constitutional: Yes: Well Nourished, No Distress Eyes: Yes: Conjunctiva Clear, EOM Intact HENT: Yes: Atraumatic, Normocephalic Cardiovascular: Yes: Regular Rate and Rhythm Respiratory: Yes: CTA Bilaterally Gastrointestinal: Yes: Normal Bowel Sounds. No: Soft, Tenderness Edema: Yes Edema: LLE: 1+, RLE: 1+ Neurological: Yes: Alert, Oriented, Cran Nerves II-XII Intact Psychiatric: Yes: Alert, Oriented Labs: CBC, BMP 07/17/17 07:45 07/17/17 07:45 INR, PTT INR 2.48 (0.82-1.09) H 07/17/17 07:45 - ....Imaging Chest X-ray: Report Reviewed (07/18/17: Cardiomegaly. No effusions or infiltrates.), Image Reviewed Assessment/Plan 82 yo male smoker with HTN, HLD, CAD -> found after abnl stress test in 2002 -> cath showing 100% mLAD, 100% PDA, 100% post branch of RCA, 50% mLCX -> med management, pre-DM, psoriasis, chronic VLADIMIR, nl EF on echo from 05/10. Admitted with worsening ANGULO and leg edema with 5 lb wt gain for over past month -> diastolic CHF. BNP elevated at 2655. Diuresed with IV furosemide with resolution of dyspnea. Echo (05/01/16) -. mild LAE, nl EF 55%, mild apical; HK, mild MR, mild-mod TR, PASP 35, Asc A 3.7 Carotid dupplex (05/01/16) -> mild heterogenous plaque b/l. w/o HD sig lesions AAA (05/01/16) -> normal 07/17/17 Echo here demonstrated normal LV size and systolic function, grade II DD , mild to mod MR, mild TR, mild pulm HTN. RECS: Will change IV lasix to 40 mg po daily as patient has clinically improved. Patient to continue home regimen, but will change lisinopril-HCTZ (10/12.5mg) to lisinopril 10 mg po daily alone since he will now be on furosemide 40 mg po daily. This was explained to the patient in great detail. Monitor lytes and renal function If patient remains clinically stable, may be discharged tomorrow with new medications as above and follow-up with his panel sewer, Dr. Carmelo Broderick. Please call with questions.
[2017-07-18] MEDS: WARFARIN NA 3 MG TABLET PO SCH (17:52)
[2017-07-18] MEDS: ATORVASTATIN CA 20 MG TABLET (FP) PO SCH (21:10)
[2017-07-18] MEDS: METOPROLOL TARTRATE 25 MG TABLET (FP) PO SCH (21:10)
[2017-07-19] MEDS: METOPROLOL TARTRATE 50 MG TABLET (FP) PO SCH (06:25)
[2017-07-19 08:23] VITALS: BP 115/69; TEMP 97.9
[2017-07-19 08:36] LABS: ANION GAP 6 (8-16); BLOOD UREA NITROGEN 15 mg/dl (7-18); CALCIUM 8.4 mg/dl (8.4-10.2); CHLORIDE 97 mmol/L (98-107); CO2 37 mmol/L (22-28); GLUCOSE,RANDOM 106 mg/dl (74-106); SODIUM 140 mmol/L (136-145)
[2017-07-19] MEDS ORDERED: FUROSEMIDE 40 MG/4 ML INJECTABLE VIAL IVPUSH SCH (10:00)
[2017-07-19] MEDS ORDERED: LISINOPRIL 10 MG TABLET (FP) PO SCH (10:00)
[2017-07-19] MEDS ORDERED: FUROSEMIDE 40 MG TABLET (FP) PO SCH (10:00)
--- NOTE | 2017-07-19 10:26 | DS ---
Physical Exam: SUBJECTIVE: Patient seen and examined OBJECTIVE: Vital Signs Period Temp Pulse Resp BP Sys/Molina Pulse Ox Last 24 Hr 97.5 F-98.1 F 74-85 16-19 106-135/65-69 92-97 PHYSICAL EXAM GENERAL: The patient is awake, alert, and fully oriented, in no acute distress. HEAD: Normal with no signs of trauma. EYES: PERRL, extraocular movements intact, sclera anicteric, conjunctiva clear. ENT: Ears normal, nares patent, oropharynx clear without exudates, moist mucous membranes. NECK: Trachea midline, full range of motion, supple. LUNGS: Breath sounds equal, clear to auscultation bilaterally, no wheezes, no crackles, no accessory muscle use. HEART: Regular rate and rhythm, S1, S2 without murmur, rub or gallop. ABDOMEN: Soft, nontender, nondistended, normoactive bowel sounds, no guarding, no rebound, no hepatosplenomegaly, no masses. EXTREMITIES: 2+ pulses, warm, well-perfused, no edema. NEUROLOGICAL: Cranial nerves II through XII grossly intact. Normal speech, gait not observed. PSYCH: Normal mood, normal affect. SKIN: Warm, dry, normal turgor, no rashes or lesions noted. LABS Laboratory Results - last 24 hr 07/18/17 07/19/17 07/19/17 12:05 07:45 07:50 Sodium 140 Potassium 4.0 Chloride 97 L Carbon Dioxide 37 H Anion Gap 6 L BUN 15 Creatinine 1.0 Random Glucose 106 Calcium 8.4 Magnesium 1.7 L 2.0 HOSPITAL COURSE: Date of Admission:07/16/17 Date of Discharge: 07/19/17 Minutes to complete discharge: 45 Discharge Summary Reason For Visit: CHF Current Active Problems Acute exacerbation of CHF (congestive heart failure) (Acute) Afib (Acute) Bilateral lower extremity edema (Acute) CHF (congestive heart failure) (Acute) COPD (chronic obstructive pulmonary disease) (Acute) DVT prophylaxis (Acute) Condition: Stable - Instructions Referrals: Shellie Leon [Primary Care Provider] - - Home Medications Comprehensive Discharge Medication List: Ambulatory Orders Atorvastatin Ca [Lipitor -] 20 mg PO HS 01/10/15 Digoxin [Lanoxin -] 0.125 mg PO DAILY 01/10/15 Finasteride [Proscar] 5 mg PO DAILY 01/10/15 Furosemide [Lasix -] 20 mg PO DAILY 01/10/15 Metoprolol Tartrate [Lopressor -] 25 mg PO HS 01/10/15 Metoprolol Tartrate [Lopressor -] 50 mg PO AM 01/10/15 Warfarin Sodium [Coumadin] 6 mg PO DAILY 01/10/15 - Discharge Referral Referred to [facility] Med P.C.: No
[2017-07-19] MEDS ORDERED: PT OWN MED DRAWER 7, Y5N ONE (10:32)
[2017-07-19] MEDS: FINASTERIDE 5 MG TABLET (FP) PO SCH (10:40)
[2017-07-19] MEDS: BUDESONIDE/FORMETEROL FUMARATE 80/4.5 mcg INHALER IH SCH (10:41)
[2017-07-19] MEDS: DIGOXIN 0.125 MG TABLET (FP) PO SCH (10:41)
[2017-07-19 10:42] VITALS: PULSE 72
[2017-07-19] MEDS: TRIAMCINOLONE ACET 0.1% CREAM 80 GM TUBE TP SCH (10:42)
== END 2017-07-19 12:20 | disposition home health service (06) ==
LOC: FER 17:38 → UNDOADMOB 21:53 → INTOOBSV 21:53 → FM/S 21:53
PROVIDERS: ADMIT Internal Medicine; ATTEND Nurse Practitioner Family
PROC: 3E033GC Introduction of Other Therapeutic Substance into Peripheral Vein, Percutaneous Approach (ICD-10-PCS; principal; 2017-07-16)
PROC: 3E0F7GC Introduction of Other Therapeutic Substance into Respiratory Tract, Via Natural or Artificial Opening (ICD-10-PCS; 2017-07-16)
DX: I50.33 Acute on chronic diastolic (congestive) heart failure (principal); I10 Essential (primary) hypertension; I48.91 Unspecified atrial fibrillation; J44.9 Chronic obstructive pulmonary disease, unspecified; F17.210 Nicotine dependence, cigarettes, uncomplicated; E78.5 Hyperlipidemia, unspecified; L40.9 Psoriasis, unspecified; N40.0 Benign prostatic hyperplasia without lower urinary tract symptoms; R73.03 Prediabetes; Z91.14 Patient's other noncompliance with medication regimen; Z79.01 Long term (current) use of anticoagulants
CPT/HCPCS: 36415; 70450-TC; 71046-TC; 73562-TC-LT; 73562-TC-RT; 80048; 80053; 80162; 81003; 81015; 82247; 83735; 83880; 84484; 85025; 85610; 85730; 87086; 93005; 93306-TC; 93970-TC; 94640; 96365; 96375; 96376; 99283-25; G0378

== ENCOUNTER 2018-08-14 18:17 | Inpatient (IN) | payer OTHER ==
--- NOTE | 2018-08-14 19:03 | PDOC ---
History of Present Illness - General Chief Complaint: Edema Stated Complaint: swelling both legs x 10 days. Time Seen by Provider: 08/14/18 18:29 History Source: Patient Exam Limitations: No Limitations - History of Present Illness Initial Comments: 08/14/18 18:57 Patient is an 83M with history of afib (on warfarin and digoxin), copd, chf, htn , hld, and eczema here today complaining of shortness of breath for the past 8 days, worsening over that time period. Patient complains of associated increased leg swelling bilaterally. Endorses orthopnea. Denies fevers, chills, nausea, vomiting. Denies increased cough. Denies history of blood clots, recent travel. Patient endorses dietary changes in attempt to achieve low sodium diet. Active smoker. Past History - Past Medical History Allergies/Adverse Reactions: Allergies Allergy/AdvReac Type Severity Reaction Status Date / Time No Known Allergies Allergy Verified 08/14/18 18:26 Home Medications: Ambulatory Orders Atorvastatin Ca [Lipitor] 20 mg PO HS 01/10/15 Digoxin [Lanoxin -] 0.125 mg PO DAILY 01/10/15 Finasteride [Proscar] 5 mg PO DAILY 01/10/15 Metoprolol Tartrate [Lopressor -] 25 mg PO HS 01/10/15 Metoprolol Tartrate [Lopressor -] 50 mg PO AM 01/10/15 Warfarin Sodium [Coumadin] 5 mg PO HS 01/10/15 Budesonide/Formeterol Fumarate [SYMBICORT 80/4.5mcg -] 2 puff IH BID #1 inhaler 07/19/17 Lisinopril [Prinivil] 10 mg PO DAILY #30 tablet 07/19/17 Triamcinolone Acetonide 1 applic TP BID #1 tube 07/19/17 Aspirin [Ecotrin] 81 mg PO DAILY 08/14/18 Furosemide [Lasix -] 20 mg PO DAILY 08/14/18 Cardiac Disorders: Yes (AFIB) COPD: Yes CHF: Yes HTN: Yes Hypercholesterolemia: Yes - Surgical History Cholecystectomy: Yes - Suicide/Smoking/Psychosocial Hx Smoking History: Current every day smoker Have you smoked in the past 12 months: No Number of Cigarettes Smoked Daily: 2 Information on smoking cessation initiated: Yes 'Breaking Loose' booklet given: 07/16/17 Hx Alcohol Use: No Drug/Substance Use Hx: No Substance Use Type: None Review of Systems - Review of Systems Comments:: 08/14/18 18:59 GENERAL/CONSTITUTIONAL: No fever or chills. No weakness. HEAD, EYES, EARS, NOSE AND THROAT: No change in vision. No sore throat. CARDIOVASCULAR: No chest pain +shortness of breath RESPIRATORY: +cough, no wheezing, or hemoptysis. GASTROINTESTINAL: No nausea, vomiting, diarrhea or constipation. GENITOURINARY: No dysuria, frequency, or change in urination. MUSCULOSKELETAL: No joint or muscle swelling or pain. No neck or back pain. + lower ext edema SKIN: No rash NEUROLOGIC: No headache, vertigo, loss of consciousness, or change in strength/ sensation. ALLERGIC/IMMUNOLOGIC: No hives or skin allergy. *Physical Exam - Vital Signs Last Vital Signs Temp Pulse Resp BP Pulse Ox 98.3 F 86 20 143/66 97 08/14/18 18:18 08/14/18 18:18 08/14/18 18:18 08/14/18 18:18 08/14/18 18:18 - Physical Exam Comments: 08/14/18 19:00 GENERAL: Awake, alert, and fully oriented, in no acute distress HEAD: No signs of trauma, normocephalic, atraumatic EYES: PERRLA, EOMI, sclera anicteric, conjunctiva clear ENT: Auricles normal inspection, hearing grossly normal, nares patent, oropharynx clear without exudates. Moist mucosa NECK: Normal ROM, supple, no lymphadenopathy, JVD, or masses LUNGS: No distress, speaks full sentences, crackles at bases bilaterally HEART: Irregularly irregular beat, normal rate ABDOMEN: Soft, nontender, normoactive bowel sounds. No guarding, no rebound. No masses EXTREMITIES: Normal range of motion, +edema. No clubbing or cyanosis. NEUROLOGICAL: Cranial nerves II through XII grossly intact. Normal speech, normal gait, no focal sensorimotor deficits SKIN: Warm, Dry, normal turgor, diffuse eczematous rash on back, legs, nose. Moderate Sedation - Procedure Monitoring Vital Signs: Procedure Monitoring Vital Signs Temperature 98.3 F 08/14/18 18:18 Pulse Rate 86 08/14/18 18:18 Respiratory Rate 20 08/14/18 18:18 Blood Pressure 143/66 08/14/18 18:18 O2 Sat by Pulse Oximetry (%) 97 08/14/18 18:18 ED Treatment Course - RADIOLOGY Radiology Studies Ordered: Category Date Time Status CHEST PA & LAT [RAD] Stat Radiology 08/14/18 18:48 Ordered Medical Decision Making - Medical Decision Making 08/14/18 19:01 Patient is 83M with history of afib, htn, chf, hld, copd, and eczema here today with shortness of breath and leg swelling. Vitals normal and stable. DDx includes, but is not limited to: acs, chf ex, copd ex. Believe chf ex most likely. Will workup with ekg, cardiac workup labs, bnp, dig level. Will require admission. Signed out to night attending. *DC/Admit/Observation/Transfer Diagnosis at time of Disposition: Acute exacerbation of CHF (congestive heart failure) - Discharge Dispostion Condition at time of disposition: Stable - Referrals - Patient Instructions Printed Discharge Instructions: Smoking Cessation - Post Discharge Activity
[2018-08-14 19:12] LABS: BASO % 1.3 % (0-2.0); EOS % 2.3 % (0-4.5); HEMATOCRIT 39.8 % (35.4-49); HEMOGLOBIN 12.9 GM/dl (11.7-16.9); LYMPH % 12.3 % (8-40); MCH 30.4 pg (25.7-33.7); MCHC 32.5 g/dl (32.0-35.9); MEAN CELL VOLUME 93.6 fl (80-96); MEAN PLT VOLUME 7.5 fl (7.5-11.1); MONO % 7.9 % (3.8-10.2); NEUT % 76.2 % (42.8-82.8); PLATELET COUNT 296 K/MM3 (134-434); RBC 4.25 M/mm3 (4.00-5.60); RDW 14.5 % (11.9-15.9); WHITE BLOOD COUNT 11.4 K/mm3 (4.0-10.8)
[2018-08-14 19:20] LABS: INR 3.29 (0.82-1.09)
[2018-08-14 19:26] LABS: ALBUMIN 3.2 g/dl (3.4-5.0); ALK PHOS 62 U/L (45-117); ANION GAP 8 MMOL/L (8-16); BILIRUBIN,TOTAL 1.6 mg/dl (0.2-1); BLOOD UREA NITROGEN 28 mg/dl (7-18); CALCIUM 8.4 mg/dl (8.5-10); CHLORIDE 101 mmol/L (98-107); CO2 27 mmol/L (21-32); CREATININE 1.2 mg/dl (0.55-1.3); GLUCOSE,RANDOM 122 mg/dl (74-106); MAGNESIUM 1.9 mg/dL (1.8-2.4); POTASSIUM 4.5 mmol/L (3.5-5.1); SGOT/AST 29 U/L (15-37); SGPT/ALT 28 U/L (13-61); SODIUM 136 mmol/L (136-145); TOT PROT 6.2 g/dl (6.4-8.2)
--- NOTE | 2018-08-14 19:41 | PDOC ---
*Physical Exam - Vital Signs Last Vital Signs Temp Pulse Resp BP Pulse Ox 98.3 F 86 20 143/66 97 08/14/18 18:18 08/14/18 18:18 08/14/18 18:18 08/14/18 18:18 08/14/18 18:18 ED Treatment Course - LABORATORY CBC & Chemistry Diagram: 08/14/18 19:00 08/14/18 19:02 - ADDITIONAL ORDERS Additional order review: Laboratory Results 08/14/18 08/14/18 08/14/18 19:02 19:02 19:02 PT with INR 36.0 H INR 3.29 H D Sodium 136 Potassium 4.5 Chloride 101 Carbon Dioxide 27 Anion Gap 8 BUN 28 H Creatinine 1.2 Creat Clearance w eGFR 58.11 Random Glucose 122 H Calcium 8.4 L Magnesium 1.9 Total Bilirubin 1.6 H AST 29 ALT 28 Alkaline Phosphatase 62 Troponin I 0.03 Total Protein 6.2 L Albumin 3.2 L 08/14/18 19:00 RBC 4.25 MCV 93.6 MCHC 32.5 RDW 14.5 MPV 7.5 Neutrophils % 76.2 Lymphocytes % 12.3 D Monocytes % 7.9 Eosinophils % 2.3 Basophils % 1.3 Progress Note - Progress Note Progress Note: Care of this patient was signed out to me by Dr. Hardy at 1900 hrs. Patient was seen by Dr. Hardy and the medical data analyst. *DC/Admit/Observation/Transfer Diagnosis at time of Disposition: Acute exacerbation of CHF (congestive heart failure) - Discharge Dispostion Condition at time of disposition: Stable - Referrals - Patient Instructions Printed Discharge Instructions: Smoking Cessation - Post Discharge Activity
--- NOTE | 2018-08-14 19:44 | PDOC ---
History of Present Illness - General History Source: Patient, Family Exam Limitations: No Limitations - History of Present Illness Initial Comments: 08/14/18 19:44 The patient is a 83 year old male presenting with family, with a significant past medical history of COPD, active smoker, CHF (on 5mg of lasix but noncompliant over the past month), Afib (on coumadin), HLD, HTN, and psoriasis, who presents to the ED complaining of shortness of breath and lower extremity swelling for the past 8 days. He notes that walking exacerbates his shortness of breath. He reports that he has been compliant with his medications but his diet has been altered as of late. He denies any other kind of symptoms. The patient denies chest pain, headache and dizziness. Allergies: NKA Social hx: Tobacco use. PCP: Dr. Shellie Leon Grocery Department Manager: Dr. Guzman Urologist: Dr. Segura Constitutional: Awake, alert, oriented. No acute distress. Head: Normocephalic. Atraumatic Eyes: PERRL. EOMI. Conjunctivae are not pale. ENT: Mucous membranes are moist and intact. Posterior pharynx without exudates or erythema. Uvula midline. Neck: Supple. Full ROM. No lymphadenopathy. Cardiovascular: Regular rate. Regular rhythm. S1, S2 regular. Distal pulses are 2+ and symmetric. Pulmonary/Chest: (+) Crackles at the basis. Abdominal: Soft and non-distended. There is no tenderness. No rebound, guarding or rigidity. No organomegaly. No palpable masses. Good bowel sounds. Back: No CVA tenderness. Musculoskeletal: (+) Lower extremity swelling bilaterally. No cyanosis. No clubbing. Full range of motion in all extremities. Nocalf tenderness. Radial/ pedal pulses are intact and 2+ bilaterally Skin: Skin is warm and dry. No petechiae. No purpura. Neurological: Alert and oriented to person, place, and time. Cranial nerves II -XII are grossly intact. Normal speech. Strength is grossly symmetric. No sensory deficits. Psychiatric: Good eye contact. Normal interaction, affect and behavior. <Jose Larios - Last Filed: 08/14/18 19:44> - General History Source: Patient Exam Limitations: No Limitations - History of Present Illness Initial Comments: A portion of this note was documented by scribe services under my direction. I have reviewed the details of the note, within reason, and agree with the documentation with the following case summary and management plan written by me. Patient treated in the ED. Nursing notes are reviewed and incorporated into the medical decision-making. Vital signs reviewed. MY ATTENDING ATTESTATION: I have performed the following: I have examined and evaluated the patient, The case was reviewed and discussed with the resident, I agree withe the resident's finding and plan, exceptions are as noted. 08/14/18 20:38 Assessment plan: This is a 83-year-old male who comes in complaining of some shortness of breath and swelling of his bilateral lower extremities. Patient denied any chest pain. Patient was noted to have bilateral pedal edema. Patient also had some mild to moderate failure on chest x-ray. Patient will be admitted to an inpatient bed to rule him out EKG shows atrial fibrillation rate of 84, right bundle branch block and left axis deviation otherwise no acute ST-T wave changes. Patients initial troponin was negative. 08/14/18 20:42 <Violetta Martinez I - Last Filed: 08/14/18 20:43> - General Chief Complaint: Edema Stated Complaint: swelling both legs x 10 days. Time Seen by Provider: 08/14/18 18:29 Past History <Jose Larios - Last Filed: 08/14/18 19:44> - Past Medical History Cardiac Disorders: Yes (AFIB) COPD: Yes CHF: Yes HTN: Yes Hypercholesterolemia: Yes - Surgical History Cholecystectomy: Yes - Suicide/Smoking/Psychosocial Hx Smoking History: Current every day smoker Have you smoked in the past 12 months: No Number of Cigarettes Smoked Daily: 2 Information on smoking cessation initiated: Yes 'Breaking Loose' booklet given: 07/16/17 Hx Alcohol Use: No Drug/Substance Use Hx: No Substance Use Type: None <Violetta Martinez I - Last Filed: 08/14/18 20:43> - Past Medical History Allergies/Adverse Reactions: Allergies Allergy/AdvReac Type Severity Reaction Status Date / Time No Known Allergies Allergy Verified 08/14/18 18:26 Home Medications: Ambulatory Orders Atorvastatin Ca [Lipitor] 20 mg PO HS 01/10/15 Digoxin [Lanoxin -] 0.125 mg PO DAILY 01/10/15 Finasteride [Proscar] 5 mg PO DAILY 01/10/15 Metoprolol Tartrate [Lopressor -] 25 mg PO HS 01/10/15 Metoprolol Tartrate [Lopressor -] 50 mg PO AM 01/10/15 Warfarin Sodium [Coumadin] 5 mg PO HS 01/10/15 Budesonide/Formeterol Fumarate [SYMBICORT 80/4.5mcg -] 2 puff IH BID #1 inhaler 07/19/17 Lisinopril [Prinivil] 10 mg PO DAILY #30 tablet 07/19/17 Triamcinolone Acetonide 1 applic TP BID #1 tube 07/19/17 Aspirin [Ecotrin] 81 mg PO DAILY 08/14/18 Furosemide [Lasix -] 20 mg PO DAILY 08/14/18 *Physical Exam - Vital Signs Last Vital Signs Temp Pulse Resp BP Pulse Ox 98.3 F 86 20 143/66 97 08/14/18 18:18 08/14/18 18:18 08/14/18 18:18 08/14/18 18:18 08/14/18 18:18 <Jose Larios - Last Filed: 08/14/18 19:44> - Vital Signs Last Vital Signs Temp Pulse Resp BP Pulse Ox 98.3 F 86 20 143/66 97 08/14/18 18:18 08/14/18 18:18 08/14/18 18:18 08/14/18 18:18 08/14/18 18:18 <Violetta Martinez I - Last Filed: 08/14/18 20:43> Moderate Sedation - Procedure Monitoring Vital Signs: Procedure Monitoring Vital Signs Temperature 98.3 F 08/14/18 18:18 Pulse Rate 86 08/14/18 18:18 Respiratory Rate 20 08/14/18 18:18 Blood Pressure 143/66 08/14/18 18:18 O2 Sat by Pulse Oximetry (%) 97 08/14/18 18:18 <Jose Larios - Last Filed: 08/14/18 19:44> - Procedure Monitoring Vital Signs: Procedure Monitoring Vital Signs Temperature 98.3 F 08/14/18 18:18 Pulse Rate 86 08/14/18 18:18 Respiratory Rate 20 08/14/18 18:18 Blood Pressure 143/66 08/14/18 18:18 O2 Sat by Pulse Oximetry (%) 97 08/14/18 18:18 <Violetta Martinez I - Last Filed: 08/14/18 20:43> ED Treatment Course - LABORATORY CBC & Chemistry Diagram: 08/14/18 19:00 08/14/18 19:02 - ADDITIONAL ORDERS Additional order review: Laboratory Results 08/14/18 08/14/18 08/14/18 19:02 19:02 19:02 PT with INR 36.0 H INR 3.29 H D Sodium 136 Potassium 4.5 Chloride 101 Carbon Dioxide 27 Anion Gap 8 BUN 28 H Creatinine 1.2 Creat Clearance w eGFR 58.11 Random Glucose 122 H Calcium 8.4 L Magnesium 1.9 Total Bilirubin 1.6 H AST 29 ALT 28 Alkaline Phosphatase 62 Troponin I 0.03 Total Protein 6.2 L Albumin 3.2 L 08/14/18 19:00 RBC 4.25 MCV 93.6 MCHC 32.5 RDW 14.5 MPV 7.5 Neutrophils % 76.2 Lymphocytes % 12.3 D Monocytes % 7.9 Eosinophils % 2.3 Basophils % 1.3 <Jose Larios - Last Filed: 08/14/18 19:44> - LABORATORY CBC & Chemistry Diagram: 08/14/18 19:00 08/14/18 19:02 - ADDITIONAL ORDERS Additional order review: Laboratory Results 08/14/18 08/14/18 08/14/18 19:02 19:02 19:02 PT with INR 36.0 H INR 3.29 H D Sodium 136 Potassium 4.5 Chloride 101 Carbon Dioxide 27 Anion Gap 8 BUN 28 H Creatinine 1.2 Creat Clearance w eGFR 58.11 Random Glucose 122 H Calcium 8.4 L Magnesium 1.9 Total Bilirubin 1.6 H AST 29 ALT 28 Alkaline Phosphatase 62 Troponin I 0.03 Total Protein 6.2 L Albumin 3.2 L 08/14/18 19:00 RBC 4.25 MCV 93.6 MCHC 32.5 RDW 14.5 MPV 7.5 Neutrophils % 76.2 Lymphocytes % 12.3 D Monocytes % 7.9 Eosinophils % 2.3 Basophils % 1.3 <Violetta Martinez I - Last Filed: 08/14/18 20:43> *DC/Admit/Observation/Transfer - Attestations Scribe Attestion: 08/14/18 19:44 Documentation prepared by Jose Larios, acting as medical coordinator pesticide use for Violetta Martinez MD <Jose Larios - Last Filed: 08/14/18 19:44> - Discharge Dispostion Decision to Admit order: Yes <Violetta Martinez I - Last Filed: 08/14/18 20:43> Diagnosis at time of Disposition: Acute exacerbation of CHF (congestive heart failure) - Discharge Dispostion Condition at time of disposition: Stable - Referrals - Patient Instructions Printed Discharge Instructions: Smoking Cessation - Post Discharge Activity
--- NOTE | 2018-08-14 21:03 | HP ---
Admitting History and Physical - Admission Chief Complaint: SOB, LE Swelling History of Present Illness: This is a 83 y/o man with a PMHx of Afib (on Coumadin), COPD, CHF, HTN, HLD, Current Smoker 1/2PPD, Psoriasis. Who presents to the ED with SOB and LE swelling x 8 days. Patient reports having SOB on exertion as well. Patient reports being compliant with his medications but not with his diet. Patient denies fever, chills, NINO, dizziness, CP, palpitations, AP, N/V/D, constipation, dysuria. ER course noted for: (1) BNP- 2974 (2) Chest Xray- History Source: Patient Limitations to Obtaining History: No Limitations - Past Medical History Cardiovascular: Yes: AFIB (chronic , on coumadin), HTN, Hyperlipdemia Pulmonary: Yes: COPD Endocrine: Yes: Other (pre-diabetes) Dermatology: Yes: Other (psoriasis) - Past Surgical History Past Surgical History: Yes: Cholecystectomy - Smoking History Smoking history: Current every day smoker Have you smoked in the past 12 months: No Aproximately how many cigarettes per day: 2 - Alcohol/Substance Use Hx Alcohol Use: No - Social History Usual Living Arrangement: Yes: With Child ADL: Independent Occupation: Retired [employer] History of Recent Travel: No Home Medications - Allergies Allergies/Adverse Reactions: Allergies Allergy/AdvReac Type Severity Reaction Status Date / Time No Known Allergies Allergy Verified 08/14/18 18:26 - Home Medications Home Medications: Ambulatory Orders Atorvastatin Ca [Lipitor] 20 mg PO HS 01/10/15 Digoxin [Lanoxin -] 0.125 mg PO DAILY 01/10/15 Finasteride [Proscar] 5 mg PO DAILY 01/10/15 Metoprolol Tartrate [Lopressor -] 25 mg PO HS 01/10/15 Metoprolol Tartrate [Lopressor -] 50 mg PO AM 01/10/15 Warfarin Sodium [Coumadin] 5 mg PO HS 01/10/15 Budesonide/Formeterol Fumarate [SYMBICORT 80/4.5mcg -] 2 puff IH BID #1 inhaler 07/19/17 Lisinopril [Prinivil] 10 mg PO DAILY #30 tablet 07/19/17 Triamcinolone Acetonide 1 applic TP BID #1 tube 07/19/17 Aspirin [Ecotrin] 81 mg PO DAILY 08/14/18 Furosemide [Lasix -] 20 mg PO DAILY 08/14/18 Family Disease History - Family Disease History Family History: Unable to Obtain Review of Systems - Review of Systems Constitutional: reports: No Symptoms Eyes: reports: No Symptoms HENT: reports: No Symptoms Neck: reports: No Symptoms Cardiovascular: reports: Edema, Shortness of Breath Respiratory: reports: Cough, SOB, SOB on Exertion Gastrointestinal: reports: No Symptoms Genitourinary: reports: No Symptoms Breasts: reports: No Symptoms Reported Musculoskeletal: reports: No Symptoms Integumentary: reports: Other Neurological: reports: No Symptoms Endocrine: reports: No Symptoms Hematology/Lymphatic: reports: No Symptoms Psychiatric: reports: No Symptoms (patchy plaque-like lesions upper/lower extremities) Physical Examination Vital Signs: Vital Signs Temperature 98.3 F 08/14/18 18:18 Pulse Rate 86 08/14/18 18:18 Respiratory Rate 20 08/14/18 18:18 Blood Pressure 143/66 08/14/18 18:18 O2 Sat by Pulse Oximetry (%) 97 08/14/18 18:18 Constitutional: Yes: Well Nourished, No Distress, Calm Eyes: Yes: WNL, Conjunctiva Clear, EOM Intact, PERRL HENT: Yes: WNL, Atraumatic, Normocephalic Neck: Yes: WNL, Supple, Trachea Midline Cardiovascular: Yes: Pulse Irregular, S1, S2 Respiratory: Yes: On Nasal O2, Rhonchi, SOB, SOB on Exertion, Wheezes Gastrointestinal: Yes: WNL Edema: Yes Edema: LLE: 2+, RLE: 2+ Peripheral Pulses WNL: Yes Neurological: Yes: WNL, Alert, Oriented, Cran Nerves II-XII Intact ...Motor Strength: WNL Psychiatric: Yes: WNL, Alert, Oriented Labs: CBC, BMP 08/14/18 19:00 08/14/18 19:02 Laboratory Results - last 24 hr 08/14/18 08/14/18 08/14/18 19:00 19:02 19:02 WBC 11.4 H RBC 4.25 Hgb 12.9 Hct 39.8 MCV 93.6 MCH 30.4 D MCHC 32.5 RDW 14.5 Plt Count 296 MPV 7.5 Absolute Neuts (auto) 8.7 Neutrophils % 76.2 Lymphocytes % 12.3 D Monocytes % 7.9 Eosinophils % 2.3 Basophils % 1.3 PT with INR 36.0 H INR 3.29 H D Sodium 136 Potassium 4.5 Chloride 101 Carbon Dioxide 27 Anion Gap 8 BUN 28 H Creatinine 1.2 Creat Clearance w eGFR 58.11 POC Glucometer Random Glucose 122 H Calcium 8.4 L Magnesium 1.9 Total Bilirubin 1.6 H AST 29 ALT 28 Alkaline Phosphatase 62 Troponin I B-Natriuretic Peptide 2974.0 H Total Protein 6.2 L Albumin 3.2 L Digoxin 0.75 L 08/14/18 08/15/18 08/15/18 19:02 00:40 06:30 WBC RBC Hgb Hct MCV MCH MCHC RDW Plt Count MPV Absolute Neuts (auto) Neutrophils % Lymphocytes % Monocytes % Eosinophils % Basophils % PT with INR INR Sodium Potassium Chloride Carbon Dioxide Anion Gap BUN Creatinine Creat Clearance w eGFR POC Glucometer 108 Random Glucose Calcium Magnesium Total Bilirubin AST ALT Alkaline Phosphatase Troponin I 0.03 0.07 H B-Natriuretic Peptide Total Protein Albumin Digoxin Current Medications Generic Name Dose Route Start Last Admin Trade Name Freq PRN Reason Stop Dose Admin Aspirin 81 mg 08/15/18 10:00 Ecotrin - PO DAILY [facility] Atorvastatin Calcium 20 mg 08/15/18 22:00 Lipitor - PO HS [facility] Budesonide/Formoterol Fumarate 2 puff 08/15/18 10:00 Symbicort 80/4.5mcg - IH BID [facility] Digoxin 0.125 mg 08/15/18 10:00 Lanoxin - PO DAILY [facility] Finasteride 5 mg 08/15/18 10:00 Proscar - PO DAILY [facility] Furosemide 40 mg 08/15/18 06:00 Lasix Injection - IVPUSH BID@0600,1400 [facility] Lisinopril 10 mg 08/15/18 10:00 Prinivil PO DAILY [facility] Metoprolol Tartrate 25 mg 08/15/18 22:00 Lopressor - PO HS [facility] Metoprolol Tartrate 50 mg 08/15/18 07:00 Lopressor - PO AM [facility] Triamcinolone Acetonide 1 applic 08/15/18 10:00 Triamcinolone Acetonide TP BID [facility] Imaging - Results Chest X-ray: Report Reviewed, Image Reviewed EKG: Image Reviewed Problem List - Problems (1) Acute exacerbation of CHF (congestive heart failure) Assessment/Plan: Cardiac monitoring Lasix given in ED will continue Chest Xray- pulm vasc congestion Appreciate Cardiology consult Strict INOs Daily weight Echo Monitor CBC, BMP Code(s): I50.9 - HEART FAILURE, UNSPECIFIED (2) Bilateral lower extremity edema Assessment/Plan: r/o DVT Likely secondary to CHF flare Duplex LE in am Elevate extremity INOs Wells Score Code(s): R60.0 - LOCALIZED EDEMA (3) COPD (chronic obstructive pulmonary disease) Assessment/Plan: stable Continue Symbicort Duonebs prn Peak Flow BID O2 Code(s): J44.9 - CHRONIC OBSTRUCTIVE PULMONARY DISEASE, UNSPECIFIED (4) Afib Assessment/Plan: stable [id number] Continue Digoxin, BB Will hold Coumadin seconary to Supratherapuetic INR Series INRs EKG- Afib rate control Code(s): I48.91 - UNSPECIFIED ATRIAL FIBRILLATION (5) HTN (hypertension) Assessment/Plan: stable Monitor BP Continue home meds with parameters Monitor renal function Code(s): I10 - ESSENTIAL (PRIMARY) HYPERTENSION (6) HLD (hyperlipidemia) Assessment/Plan: stable Continue Lipitor Monitor LFTs Code(s): E78.5 - HYPERLIPIDEMIA, UNSPECIFIED (7) Psoriasiform eczema Assessment/Plan: Continue home med f/u with Dermatology outpatient Code(s): L30.8 - OTHER SPECIFIED DERMATITIS (8) Current smoker Assessment/Plan: Counseled on smoking cessation, patient is not amendable Nicoderm Patch Code(s): F17.200 - NICOTINE DEPENDENCE, UNSPECIFIED, UNCOMPLICATED Assessment/Plan This is a 83 y/o man with a PMHx of: Afib (on Coumadin), CHF, HTN, HLD, COPD, Tobacco Dependence, Eczema. Admitted for Acute CHF Exacerbation for further evaluation of their emergent condition. Plan: See Problem list FEN Fluids Restriction 1L Replete lytes prn Low Na Diet DVT ppx OOB Heparin SQ Dispo: Requires Inpatient Care Visit type - Emergency Visit Emergency Visit: Yes ED Registration Date: 08/14/18 Care time: The patient presented to the Emergency Department on the above date and was hospitalized for further evaluation of their emergent condition. - New Patient This patient is new to me today: Yes Date on this admission: 08/14/18 - Critical Care Critical Care patient: No
[2018-08-14] MEDS ORDERED: FUROSEMIDE 40 MG/4 ML INJECTABLE VIAL IVPUSH ONE (21:12)
[2018-08-14] MEDS ORDERED: FUROSEMIDE 40 MG/4 ML INJECTABLE VIAL ONE (21:23)
[2018-08-14 23:51] VITALS: BMI 24.3
[2018-08-15] MEDS ORDERED: METOPROLOL TARTRATE 50 MG TABLET (FP) PO SCH (08:30)
[2018-08-15 08:40] LABS: BASO % 0.5 % (0-2.0); HEMATOCRIT 37.4 % (35.4-49); HEMOGLOBIN 12.5 GM/dl (11.7-16.9); LYMPH % 13.9 % (8-40); MCH 31.2 pg (25.7-33.7); MCHC 33.5 g/dl (32.0-35.9); MEAN PLT VOLUME 7.8 fl (7.5-11.1); MONO % 8.9 % (3.8-10.2); NEUT % 73.7 % (42.8-82.8); PLATELET COUNT 275 K/MM3 (134-434); RBC 4.02 M/mm3 (4.00-5.60); RDW 14.3 % (11.9-15.9); WHITE BLOOD COUNT 10.8 K/mm3 (4.0-10.8)
[2018-08-15] MEDS ORDERED: ALBUTEROL SO4 2.5/IPRATROPIUM 0.5 INH SOL 3 ML VIAL.NEB. NEB PRN (08:43)
[2018-08-15 09:00] LABS: ANION GAP 10 MMOL/L (8-16); BLOOD UREA NITROGEN 27 mg/dl (7-18); CALCIUM 8.5 mg/dl (8.5-10); CHLORIDE 101 mmol/L (98-107); CO2 29 mmol/L (21-32); CREATININE 1.2 mg/dl (0.55-1.3); GLUCOSE,RANDOM 97 mg/dl (74-106); POTASSIUM 4.8 mmol/L (3.5-5.1); SODIUM 140 mmol/L (136-145)
[2018-08-15] MEDS ORDERED: PT OWN MED DRAWER 7, Y5N ONE (09:02)
[2018-08-15] MEDS: FUROSEMIDE 40 MG/4 ML INJECTABLE VIAL IVPUSH SCH ×2 (09:13→14:59)
[2018-08-15 09:40] LABS: INR 3.3 (0.82-1.09); PROTHROMBIN TIME (PATIENT) 36.1 SEC (10.2-13.0)
[2018-08-15] MEDS ORDERED: FINASTERIDE 5 MG TABLET (FP) PO SCH (10:00)
[2018-08-15] MEDS ORDERED: LISINOPRIL 10 MG TABLET (FP) PO SCH (10:00)
[2018-08-15] MEDS ORDERED: TRIAMCINOLONE ACET 0.1% CREAM 80 GM TUBE TP SCH (10:00)
[2018-08-15] MEDS ORDERED: DIGOXIN 0.125 MG TABLET (FP) PO SCH (10:00)
[2018-08-15] MEDS ORDERED: ASPIRIN COATED 81 MG TABLET.EC PO SCH (10:00)
[2018-08-15] MEDS ORDERED: BUDESONIDE/FORMETEROL FUMARATE 80/4.5 mcg INHALER IH SCH (10:00)
--- NOTE | 2018-08-15 10:43 | PN ---
Physical Exam: SUBJECTIVE: Patient seen and examined at bedside. Swelling in legs is much better. Denies SOB. Takes his lasix pill every day but lately eating a lot of salt. OBJECTIVE: Vital Signs Period Temp Pulse Resp BP Sys/Molina Pulse Ox Last 24 Hr 98.0 F-98.5 F 81-91 14-20 106-143/49-70 95-97 GENERAL: The patient is awake, alert, and fully oriented, in no acute distress. LUNGS: CTA HEART: Irregular, S1, S2 ABDOMEN: Soft, nontender, nondistended, normoactive bowel sounds EXTREMITIES: 2+ pulses, warm, well-perfused, no edema. NEUROLOGICAL: Cranial nerves II through XII grossly intact. Normal speech, gait not observed. SKIN: Extensive psoriatic plaques chest, arms, legs Laboratory Results - last 24 hr 08/14/18 08/14/18 08/14/18 19:00 19:02 19:02 WBC 11.4 H RBC 4.25 Hgb 12.9 Hct 39.8 MCV 93.6 MCH 30.4 D MCHC 32.5 RDW 14.5 Plt Count 296 MPV 7.5 Absolute Neuts (auto) 8.7 Neutrophils % 76.2 Lymphocytes % 12.3 D Monocytes % 7.9 Eosinophils % 2.3 Basophils % 1.3 PT with INR 36.0 H INR 3.29 H D Sodium 136 Potassium 4.5 Chloride 101 Carbon Dioxide 27 Anion Gap 8 BUN 28 H Creatinine 1.2 Creat Clearance w eGFR 58.11 POC Glucometer Random Glucose 122 H Calcium 8.4 L Magnesium 1.9 Total Bilirubin 1.6 H AST 29 ALT 28 Alkaline Phosphatase 62 Troponin I B-Natriuretic Peptide 2974.0 H Total Protein 6.2 L Albumin 3.2 L Digoxin 0.75 L 08/14/18 08/15/18 08/15/18 19:02 00:40 06:30 WBC RBC Hgb Hct MCV MCH MCHC RDW Plt Count MPV Absolute Neuts (auto) Neutrophils % Lymphocytes % Monocytes % Eosinophils % Basophils % PT with INR INR Sodium Potassium Chloride Carbon Dioxide Anion Gap BUN Creatinine Creat Clearance w eGFR POC Glucometer 108 Random Glucose Calcium Magnesium Total Bilirubin AST ALT Alkaline Phosphatase Troponin I 0.03 0.07 H B-Natriuretic Peptide Total Protein Albumin Digoxin 08/15/18 08/15/18 08/15/18 07:15 07:15 07:15 WBC 10.8 RBC 4.02 Hgb 12.5 Hct 37.4 MCV 93.0 MCH 31.2 MCHC 33.5 RDW 14.3 Plt Count 275 MPV 7.8 Absolute Neuts (auto) 7.9 Neutrophils % 73.7 Lymphocytes % 13.9 Monocytes % 8.9 Eosinophils % 3.0 Basophils % 0.5 PT with INR INR Sodium 140 Potassium 4.8 Chloride 101 Carbon Dioxide 29 Anion Gap 10 BUN 27 H Creatinine 1.2 Creat Clearance w eGFR 58.11 POC Glucometer Random Glucose 97 Calcium 8.5 Magnesium Total Bilirubin AST ALT Alkaline Phosphatase Troponin I 0.03 B-Natriuretic Peptide Total Protein Albumin Digoxin 08/15/18 09:20 WBC RBC Hgb Hct MCV MCH MCHC RDW Plt Count MPV Absolute Neuts (auto) Neutrophils % Lymphocytes % Monocytes % Eosinophils % Basophils % PT with INR 36.1 H INR 3.30 H Sodium Potassium Chloride Carbon Dioxide Anion Gap BUN Creatinine Creat Clearance w eGFR POC Glucometer Random Glucose Calcium Magnesium Total Bilirubin AST ALT Alkaline Phosphatase Troponin I B-Natriuretic Peptide Total Protein Albumin Digoxin Active Medications Generic Name Dose Route Start Last Admin Trade Name Freq PRN Reason Stop Dose Admin Albuterol/Ipratropium 1 amp 08/15/18 08:43 Duoneb - NEB Q6H PRN SHORTNESS OF BREATH Aspirin 81 mg 08/15/18 10:00 08/15/18 09:14 Ecotrin - PO 81 mg DAILY GINA Administration Atorvastatin Calcium 20 mg 08/15/18 22:00 Lipitor - PO HS GINA Budesonide/Formoterol Fumarate 2 puff 08/15/18 10:00 08/15/18 09:14 Symbicort 80/4.5mcg - IH 2 puff BID GINA Administration Digoxin 0.125 mg 08/15/18 10:00 08/15/18 09:15 Lanoxin - PO 0.125 mg DAILY GINA Administration Finasteride 5 mg 08/15/18 10:00 08/15/18 09:14 Proscar - PO 5 mg DAILY GINA Administration Furosemide 40 mg 08/15/18 06:00 08/15/18 09:13 Lasix Injection - IVPUSH 40 mg BID@0600,1400 GINA Administration Lisinopril 10 mg 08/15/18 10:00 08/15/18 09:16 Prinivil PO Not Given DAILY GINA Metoprolol Tartrate 25 mg 08/15/18 22:00 Lopressor - PO HS GINA Metoprolol Tartrate 50 mg 08/15/18 08:30 08/15/18 09:14 Lopressor - PO 50 mg AM GINA Administration Triamcinolone Acetonide 1 applic 08/15/18 10:00 08/15/18 09:16 Triamcinolone Acetonide TP 1 applic BID GINA Administration ASSESSMENT/PLAN 83 year-old male with a PMH significant for HTN, HLD, CAD, diastolic heart failure, atrial fibrillation, COPD, psoriasis, and BPH. Admitted for CHF exacerbation. Acute on chronic diastolic heart failure --2017 Echo: diastolic dysfunction --with symptoms of LE edema and SOB on admission, improved today after IV lasix --BNP on par to year ago --08/14 CXR: fluid in major fissure --continue lasix IV 40mg BID --echo pendng --cardiology consult requested --daily weights --strict I&Os Elevated troponins --flat trending, not indicative of ACS Atrial fibrillation on warfarin --rate in 90s, continue metoprolol --on warfarin at home, INR 3.29 on admission, hold today's dose Coronary artery disease --continue metoprolol, ASA, Lipitor COPD --stable --continue Symbicort, albuterol INH PRN Psoriasis --treats at home with triamcinolone only, will continue BPH --continue finasteride FEN Fluids: PO intake adequate Electrolytes: replete as indicated Nutrition: low sodium DVT prophylaxis: on warfarin but INR supratherapeutic, hold Physical therapy Dispo: continues to require inpatient care. Full code. Hypertension --BP stable --continue lisinopril, metoprolol --BP stabe Visit type - Emergency Visit Emergency Visit: Yes ED Registration Date: 08/15/18 Care time: The patient presented to the Emergency Department on the above date and was hospitalized for further evaluation of their emergent condition. - New Patient This patient is new to me today: Yes Date on this admission: 08/15/18 - Critical Care Critical Care patient: No
--- NOTE | 2018-08-15 11:59 | EKG ---
Test Reason : Blood Pressure : / mmHG Vent. Rate : 101 BPM Atrial Rate : 104 BPM P-R Int : 000 ms QRS Dur : 130 ms QT Int : 306 ms P-R-T Axes : 000 -81 082 degrees QTc Int : 396 ms ATRIAL FIBRILLATION WITH RAPID VENTRICULAR RESPONSE WITH PREMATURE VENTRICULAR OR ABERRANTLY CONDUCTED COMPLEXES LEFT AXIS DEVIATION RIGHT BUNDLE BRANCH BLOCK ABNORMAL ECG WHEN COMPARED WITH ECG OF 14-AUG-2018 19:12, NO SIGNIFICANT CHANGE WAS FOUND Confirmed by ELEAZAR MCNEAL, JOSE ALBERTO ([id number]) on 08/15/2018 11:59:26 AM Referred By: ARTURO URIAS Confirmed By:JOSE ALBERTO BUSH MD
--- NOTE | 2018-08-15 12:00 | EKG ---
Test Reason : Blood Pressure : / mmHG Vent. Rate : 084 BPM Atrial Rate : 087 BPM P-R Int : 000 ms QRS Dur : 134 ms QT Int : 354 ms P-R-T Axes : 000 -77 065 degrees QTc Int : 418 ms ATRIAL FIBRILLATION WITH PREMATURE VENTRICULAR OR ABERRANTLY CONDUCTED COMPLEXES LEFT AXIS DEVIATION RIGHT BUNDLE BRANCH BLOCK ABNORMAL ECG WHEN COMPARED WITH ECG OF 16-JUL-2017 18:25, NO SIGNIFICANT CHANGE WAS FOUND Confirmed by ELEAZAR MCNEAL, JOSE ALBERTO ([id number]) on 08/15/2018 11:59:55 AM Referred By: Osvaldo Bender Confirmed By:JOSE ALBERTO BUSH MD
[2018-08-15 14:10] VITALS: BP 108/53; PULSE 71; TEMP 98.6
--- NOTE | 2018-08-15 15:03 | DS ---
Physical Exam: SUBJECTIVE: Patient seen and examined OBJECTIVE: Vital Signs Period Temp Pulse Resp BP Sys/Molina Pulse Ox Last 24 Hr 98.0 F-98.6 F 71-91 14-20 106-143/49-70 95-97 PHYSICAL EXAM GENERAL: The patient is awake, alert, and fully oriented, in no acute distress. HEAD: Normal with no signs of trauma. EYES: PERRL, extraocular movements intact, sclera anicteric, conjunctiva clear. ENT: Ears normal, nares patent, oropharynx clear without exudates, moist mucous membranes. NECK: Trachea midline, full range of motion, supple. LUNGS: Breath sounds equal, clear to auscultation bilaterally, no wheezes, no crackles, no accessory muscle use. HEART: Regular rate and rhythm, S1, S2 without murmur, rub or gallop. ABDOMEN: Soft, nontender, nondistended, normoactive bowel sounds, no guarding, no rebound, no hepatosplenomegaly, no masses. EXTREMITIES: 2+ pulses, warm, well-perfused, no edema. NEUROLOGICAL: Cranial nerves II through XII grossly intact. Normal speech, gait not observed. PSYCH: Normal mood, normal affect. SKIN: Warm, dry, normal turgor, no rashes or lesions noted. LABS Laboratory Results - last 24 hr 08/14/18 08/14/18 08/14/18 19:00 19:02 19:02 WBC 11.4 H RBC 4.25 Hgb 12.9 Hct 39.8 MCV 93.6 MCH 30.4 D MCHC 32.5 RDW 14.5 Plt Count 296 MPV 7.5 Absolute Neuts (auto) 8.7 Neutrophils % 76.2 Lymphocytes % 12.3 D Monocytes % 7.9 Eosinophils % 2.3 Basophils % 1.3 PT with INR 36.0 H INR 3.29 H D Sodium 136 Potassium 4.5 Chloride 101 Carbon Dioxide 27 Anion Gap 8 BUN 28 H Creatinine 1.2 Creat Clearance w eGFR 58.11 POC Glucometer Random Glucose 122 H Calcium 8.4 L Magnesium 1.9 Total Bilirubin 1.6 H AST 29 ALT 28 Alkaline Phosphatase 62 Troponin I B-Natriuretic Peptide 2974.0 H Total Protein 6.2 L Albumin 3.2 L Digoxin 0.75 L 08/14/18 08/15/18 08/15/18 19:02 00:40 06:30 WBC RBC Hgb Hct MCV MCH MCHC RDW Plt Count MPV Absolute Neuts (auto) Neutrophils % Lymphocytes % Monocytes % Eosinophils % Basophils % PT with INR INR Sodium Potassium Chloride Carbon Dioxide Anion Gap BUN Creatinine Creat Clearance w eGFR POC Glucometer 108 Random Glucose Calcium Magnesium Total Bilirubin AST ALT Alkaline Phosphatase Troponin I 0.03 0.07 H B-Natriuretic Peptide Total Protein Albumin Digoxin 08/15/18 08/15/18 08/15/18 07:15 07:15 07:15 WBC 10.8 RBC 4.02 Hgb 12.5 Hct 37.4 MCV 93.0 MCH 31.2 MCHC 33.5 RDW 14.3 Plt Count 275 MPV 7.8 Absolute Neuts (auto) 7.9 Neutrophils % 73.7 Lymphocytes % 13.9 Monocytes % 8.9 Eosinophils % 3.0 Basophils % 0.5 PT with INR INR Sodium 140 Potassium 4.8 Chloride 101 Carbon Dioxide 29 Anion Gap 10 BUN 27 H Creatinine 1.2 Creat Clearance w eGFR 58.11 POC Glucometer Random Glucose 97 Calcium 8.5 Magnesium Total Bilirubin AST ALT Alkaline Phosphatase Troponin I 0.03 B-Natriuretic Peptide Total Protein Albumin Digoxin 08/15/18 09:20 WBC RBC Hgb Hct MCV MCH MCHC RDW Plt Count MPV Absolute Neuts (auto) Neutrophils % Lymphocytes % Monocytes % Eosinophils % Basophils % PT with INR 36.1 H INR 3.30 H Sodium Potassium Chloride Carbon Dioxide Anion Gap BUN Creatinine Creat Clearance w eGFR POC Glucometer Random Glucose Calcium Magnesium Total Bilirubin AST ALT Alkaline Phosphatase Troponin I B-Natriuretic Peptide Total Protein Albumin Digoxin HOSPITAL COURSE: Date of Admission:08/15/18 Date of Discharge: 08/15/18 Echo: LV normal, EF 55-60%; RV normal; mild BLAE; mild MR; moderate to severe TR , pHTN; trace PI Minutes to complete discharge: 35 Discharge Summary Reason For Visit: CHF Current Active Problems Acute exacerbation of CHF (congestive heart failure) (Acute) Current smoker (Acute) HLD (hyperlipidemia) (Acute) HTN (hypertension) (Acute) Psoriasiform eczema (Acute) Condition: Improved - Instructions Diet, Activity, Other Instructions: Dr. Broderick, your outpatient therapist, is aware of your hospital stay. He wants to see you in his office on August 19. Dr. Broderick will call you and tell you the time of your appointment. Continue to take all your home medications including furosemide (water pill). Your INR is elevated at 3.3. Do not take warfarin today, Sunday, or Sunday. Restart your warfarin on Sunday at 4mg. Avoid salt in your diet. Referrals: Carmelo Broderick MD [Staff Physician] - Disposition: HOME - Home Medications Comprehensive Discharge Medication List: Ambulatory Orders Atorvastatin Ca [Lipitor] 20 mg PO HS 01/10/15 Digoxin [Lanoxin -] 0.125 mg PO DAILY 01/10/15 Finasteride [Proscar] 5 mg PO DAILY 01/10/15 Metoprolol Tartrate [Lopressor -] 25 mg PO HS 01/10/15 Metoprolol Tartrate [Lopressor -] 50 mg PO AM 01/10/15 Warfarin Sodium [Coumadin] 5 mg PO HS 01/10/15 Budesonide/Formeterol Fumarate [SYMBICORT 80/4.5mcg -] 2 puff IH BID #1 inhaler 07/19/17 Triamcinolone Acetonide 1 applic TP BID #1 tube 07/19/17 Aspirin [Ecotrin] 81 mg PO DAILY 08/14/18 Furosemide [Lasix -] 20 mg PO DAILY 08/14/18 This patient is new to me today: Yes Date on this admission: 08/15/18 Emergency Visit: Yes ED Registration Date: 08/15/18 Care time: The patient presented to the Emergency Department on the above date and was hospitalized for further evaluation of their emergent condition. Critical Care patient: No - Discharge Referral Referred to [facility] Med P.C.: No
--- NOTE | 2018-08-15 15:18 | ECHO ---
Name: ARIELA TINOCO Exam:Adult Echocardiogram Study Date: 08/15/2018 10:58 AM Age: 83 yrs Reason For Study: A-Fib Height: 74 in Weight: 183 lb BSA: 2.1 m2 MMode/2D Measurements & Calculations IVSd: 0.93 cm Ao root diam: 3.5 cm LVIDd: 5.0 cm LA dimension: 4.4 cm LVIDs: 3.1 cm LVPWd: 1.0 cm EDV(Teich): 117.5 ml LVOT diam: 2.2 cm ESV(Teich): 36.8 ml Doppler Measurements & Calculations MV E max radha: 109.8 cm/sec TR max radha: 302.3 cm/sec TR max P.6 mmHg Procedure A complete two-dimensional transthoracic echocardiogram was performed (2D, M-mode, Doppler and color flow Doppler). Left Ventricle The left ventricular size, thickness and function are normal. The left ventricular ejection fraction is normal. Ejection Fraction = 55-60%. The left ventricular wall motion is normal. Right Ventricle The right ventricle is normal in size and function. Atria The left atrium is mildly dilated. The right atrium is mildly dilated. Mitral Valve There is mild mitral regurgitation. Tricuspid Valve There is moderate to severe tricuspid regurgitation. Right ventricular systolic pressure is elevated at 30- 40mmHg. Aortic Valve No hemodynamically significant valvular aortic stenosis. No aortic regurgitation is present. Pulmonic Valve Trace pulmonic valvular regurgitation. Great Vessels The aortic root is normal size. Pericardium/Pleura There is no pericardial effusion. Interpretation Summary The left ventricular size, thickness and function are normal The right ventricle is normal in size and function. The left atrium is mildly dilated. The right atrium is mildly dilated. There is mild mitral regurgitation. There is moderate to severe tricuspid regurgitation. Right ventricular systolic pressure is elevated at 30-40mmHg. Trace pulmonic valvular regurgitation. MD Agustín Cates 08/15/2018 03:18 PM
[2018-08-15] MEDS ORDERED: METOPROLOL TARTRATE 25 MG TABLET (FP) PO SCH (22:00)
[2018-08-15] MEDS ORDERED: ATORVASTATIN CA 20 MG TABLET (FP) PO SCH (22:00)
== END 2018-08-15 17:18 | disposition home or self-care (01) | DRG 293 ==
LOC: FER 18:17 → FM/S 20:37 → OBSVTOIN 08-15 07:10
PROVIDERS: ADMIT Internal Medicine; ATTEND Nurse Practitioner Acute Care
DX: I11.0 Hypertensive heart disease with heart failure (principal); I50.33 Acute on chronic diastolic (congestive) heart failure; R73.03 Prediabetes; I48.91 Unspecified atrial fibrillation; Z79.01 Long term (current) use of anticoagulants; J44.9 Chronic obstructive pulmonary disease, unspecified; E78.5 Hyperlipidemia, unspecified; L40.9 Psoriasis, unspecified; F17.210 Nicotine dependence, cigarettes, uncomplicated; Z91.14 Patient's other noncompliance with medication regimen; N40.0 Benign prostatic hyperplasia without lower urinary tract symptoms
CPT/HCPCS: 36415; 71046-TC-FY; 80048; 80053; 80162; 82962; 83735; 83880; 84484; 85025; 85610; 93005; 93306-TC; 93970-TC; 99285-25; G0378

== ENCOUNTER 2019-04-05 16:58 | Emergency (ER) | payer OTHER ==
[2019-04-05 17:40] LABS: EPITHELIAL CELLS FEW /hpf
--- NOTE | 2019-04-05 17:42 | PDOC ---
History of Present Illness - General Chief Complaint: Urinary Problem Stated Complaint: URINARY SYM Time Seen by Provider: 04/05/19 17:04 - History of Present Illness Initial Comments: 04/05/19 17:42 84yo male with a PMH of Afib on Coumadin, COPD, CHF, HTN, HLD, Current Smoker 1/ 2PPD, Psoriasis presents for evaluation of decreased urine output since noon today. States full pressurelike sensation to lower abd and R side. No cva ttp. No fevers. No vomiting or diarrhea. Last bm was 10a today. Pt with hx of bph on finasteride. Pt denies cp/sob. No palpitations. No hematuria or dysuria. States he feels the urge to urinate, but only a little bit comes out. Pt states earlier when trying to pass his urine he felt nauseated, which has since resolved. Pt presented ambulatory to the ED. Pmhx: afib, copd, chf, htn, hld, psoriasis Pshx: ronna, hernia repair All: nkda Past History - Past Medical History Allergies/Adverse Reactions: Allergies Allergy/AdvReac Type Severity Reaction Status Date / Time No Known Allergies Allergy Verified 04/05/19 16:59 Home Medications: Ambulatory Orders Atorvastatin Ca [Lipitor] 20 mg PO HS 01/10/15 Digoxin [Lanoxin -] 0.125 mg PO DAILY 01/10/15 Finasteride [Proscar] 5 mg PO DAILY 01/10/15 Metoprolol Tartrate [Lopressor -] 25 mg PO HS 01/10/15 Metoprolol Tartrate [Lopressor -] 50 mg PO AM 01/10/15 Warfarin Sodium [Coumadin] 5 mg PO HS 01/10/15 Budesonide/Formeterol Fumarate [SYMBICORT 80/4.5mcg -] 2 puff IH BID #1 inhaler 07/19/17 Triamcinolone Acetonide 1 applic TP BID #1 tube 07/19/17 Furosemide [Lasix -] 40 mg PO DAILY 08/14/18 Cardiac Disorders: Yes (AFIB) COPD: Yes CHF: Yes HTN: Yes Hypercholesterolemia: Yes - Surgical History Cholecystectomy: Yes - Psycho Social/Smoking Cessation Hx Smoking History: Current every day smoker Have you smoked in the past 12 months: No Number of Cigarettes Smoked Daily: 2 'Breaking Loose' booklet given: 07/16/17 Hx Alcohol Use: No Drug/Substance Use Hx: No Substance Use Type: None Review of Systems - Review of Systems Able to Perform ROS?: Yes Is the patient limited Ukrainian proficient: No Constitutional: No: Chills, Fever HEENTM: No: Eye Pain, Nose Pain, Throat Pain Respiratory: No: Cough, Shortness of Breath Cardiac (ROS): No: Chest Pain, Palpitations ABD/GI: Yes: Nausea, Other (full pressure sensation to lower abd and RLQ). No: Diarrhea, Vomiting : Yes: Urgency, Other (decreased urine output). No: Burning, Dysuria, Frequency, Hematuria Musculoskeletal: No: Back Pain Integumentary: Yes: Rash, Other (psoriasis) Neurological: No: Headache, Numbness, Paresthesia All Other Systems: Reviewed and Negative *Physical Exam - Physical Exam General Appearance: Yes: Nourished, Appropriately Dressed. No: Apparent Distress HEENT: positive: EOMI, Normal Voice Neck: positive: Supple Respiratory/Chest: positive: Lungs Clear, Normal Breath Sounds. negative: Respiratory Distress Cardiovascular: positive: Regular Rate, S1, S2, Irregularly Irregular Gastrointestinal/Abdominal: positive: Normal Bowel Sounds, Soft, Other ( distended bladder). negative: Guarding, Rebound Musculoskeletal: positive: Normal Inspection. 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, Fully Oriented, Alert, Motor Strength 5/5, Other (ambulatory with a steady gait) ED Treatment Course - LABORATORY CBC & Chemistry Diagram: 04/05/19 18:30 04/05/19 18:30 - ADDITIONAL ORDERS Additional order review: Laboratory Results 04/05/19 17:30 Urine Color Yellow Urine Appearance Slightly Urine pH 5.5 Urine Protein Negative Urine Glucose (UA) Negative Urine Ketones Negative Urine Blood 3+ H Urine Nitrite Negative Urine Bilirubin Negative Urine Urobilinogen 0.2 Ur Leukocyte Esterase Negative Urine RBC 20-40 Urine WBC 0-2 Ur Transition Epith Cell Few Urine Bacteria Few Medical Decision Making - Medical Decision Making 04/05/19 17:48 a/p: 84yo male with urinary retention and decreased urine output -will check labs, ua, ucx -bedside ultrasound renal/bladder shows urinary retention, distended bladder, enlarged prostate, and R mild hydronephrosis with hydroureter -will need lubin catheter -dr. joseph is urology -PMD: Dr. Mcgee -Cards: Dr. Medina -will send coags, check renal function 04/05/19 18:42 pt with small opening at his meatus, small catheter placed, draining clear urine pt feels better given retention, hydro will send for ct abd/pelvis blood in urine 04/05/19 19:03 pt pending labs and imaging inr 1.98 wbc 12 pt has been signed out to the nighttime attending pending imaging and labs lubin catheter has been placed Discharge - Discharge Information Problems reviewed: Yes Clinical Impression/Diagnosis: Urinary retention Condition: Fair - Follow up/Referral - Patient Discharge Instructions - Post Discharge Activity
[2019-04-05 17:53] VITALS: BP 175/87; PULSE 96; TEMP 98.2; BMI 24.3
[2019-04-05 18:46] LABS: BASO % 0.9 % (0-2.0); EOS % 0.9 % (0-4.5); HEMATOCRIT 41.3 % (35.4-49); HEMOGLOBIN 13.7 GM/dl (11.7-16.9); LYMPH % 8.9 % (8-40); MCH 29.6 pg (25.7-33.7); MCHC 33.1 g/dl (32.0-35.9); MEAN CELL VOLUME 89.4 fl (80-96); MONO % 5.1 % (3.8-10.2); NEUT % 84.2 % (42.8-82.8); PLATELET COUNT 359 K/MM3 (134-434); RBC 4.62 M/mm3 (4.00-5.60); RDW 14.9 % (11.9-15.9); WHITE BLOOD COUNT 12.4 K/mm3 (4.0-10.8)
[2019-04-05 18:54] LABS: INR 1.98 (0.82-1.09); PROTHROMBIN TIME (PATIENT) 21.9 SEC (10.2-13.0)
[2019-04-05 19:00] LABS: ALBUMIN 3.5 g/dl (3.4-5.0); BILIRUBIN,TOTAL 1.9 mg/dl (0.2-1); CALCIUM 8.8 mg/dl (8.5-10); CREATININE 1.4 mg/dl (0.55-1.3); TOT PROT 6.8 g/dl (6.4-8.2)
[2019-04-05 19:35] LABS: POTASSIUM 4.7 mmol/L (3.5-5.1)
--- NOTE | 2019-04-05 19:36 | PDOC ---
*Physical Exam - Vital Signs Last Vital Signs Temp Pulse Resp BP Pulse Ox 98.2 F 96 H 20 175/87 H 96 04/05/19 16:59 04/05/19 16:59 04/05/19 16:59 04/05/19 16:59 04/05/19 16:59 ED Treatment Course - LABORATORY CBC & Chemistry Diagram: 04/05/19 18:30 04/05/19 18:30 - ADDITIONAL ORDERS Additional order review: Laboratory Results 04/05/19 04/05/19 04/05/19 18:30 18:30 18:30 PT with INR 21.9 H INR 1.98 H PTT (Actin FS) 34.3 Sodium 136 Chloride 99 Carbon Dioxide 27 Anion Gap 10 BUN 27.0 H Creatinine 1.4 H Est GFR (CKD-EPI)AfAm 53.85 Est GFR (CKD-EPI)NonAf 46.46 Random Glucose 125 H Calcium 8.8 Total Bilirubin 1.9 H AST 26 ALT 22 Alkaline Phosphatase 66 Total Protein 6.8 Albumin 3.5 Urine Color Urine Appearance Urine pH Urine Protein Urine Glucose (UA) Urine Ketones Urine Blood Urine Nitrite Urine Bilirubin Urine Urobilinogen Ur Leukocyte Esterase Urine RBC Urine WBC Ur Transition Epith Cell Urine Bacteria 04/05/19 17:30 PT with INR INR PTT (Actin FS) Sodium Chloride Carbon Dioxide Anion Gap BUN Creatinine Est GFR (CKD-EPI)AfAm Est GFR (CKD-EPI)NonAf Random Glucose Calcium Total Bilirubin AST ALT Alkaline Phosphatase Total Protein Albumin Urine Color Yellow Urine Appearance Slightly Urine pH 5.5 Urine Protein Negative Urine Glucose (UA) Negative Urine Ketones Negative Urine Blood 3+ H Urine Nitrite Negative Urine Bilirubin Negative Urine Urobilinogen 0.2 Ur Leukocyte Esterase Negative Urine RBC 20-40 Urine WBC 0-2 Ur Transition Epith Cell Few Urine Bacteria Few 04/05/19 18:30 RBC 4.62 MCV 89.4 MCHC 33.1 RDW 14.9 MPV 7.0 L D Neutrophils % 84.2 H Lymphocytes % 8.9 D Monocytes % 5.1 Eosinophils % 0.9 Basophils % 0.9 Medical Decision Making - Medical Decision Making 04/05/19 22:04 Patient with urinary retention, due to meatal stricture only a small pediatric catheter could be introduced. However, bladder is evacuated and the patient is more comfortable. CT results show prostatic hypertrophy, mild hydronephrosis. Patient is scheduled to see his urologist on Sunday. Patient is alert, in no pain or other distress, clinically and hemodynamically stable. Discharged with his family to follow-up as directed. If further symptoms develop, he is instructed to return to the emergency room. Discharge - Discharge Information Problems reviewed: Yes Clinical Impression/Diagnosis: Urinary retention Condition: Improved Disposition: HOME - Admission No - Follow up/Referral - Patient Discharge Instructions Patient Printed Discharge Instructions: How to Care for Your Banks Catheter -- Male, DI for Urinary Retention in Men Additional Instructions: See urologist on Sunday Return to ER if there were any further symptoms. - Post Discharge Activity
== END 2019-04-05 22:03 | disposition home or self-care (01) ==
LOC: FER 16:58
DX: R33.9 Retention of urine, unspecified (principal); E78.00 Pure hypercholesterolemia, unspecified; I10 Essential (primary) hypertension; I48.91 Unspecified atrial fibrillation; J44.9 Chronic obstructive pulmonary disease, unspecified; I50.9 Heart failure, unspecified; Z79.01 Long term (current) use of anticoagulants; Z72.0 Tobacco use
CPT/HCPCS: 36415; 74176-TC; 80053; 81003; 81015; 85025; 85610; 85730; 87086; 99283-25

== ENCOUNTER 2019-04-24 18:03 | Emergency (ER) | payer OTHER ==
[2019-04-24 19:35] VITALS: BP 127/78; PULSE 98; TEMP 98.3; BMI 24.1
[2019-04-24] MEDS ORDERED: PIPERACILLIN/TAZOB 3.375 GM 3.375 GM in DEXTROSE 5%-WATER - 50 ML IVPB ONE (19:35)
[2019-04-24] MEDS ORDERED: VANCOMYCIN 1 GM in D5W (PRE-DOCKED) 1,000 MG/250 ML IVPB STA (19:35)
--- NOTE | 2019-04-24 19:46 | PDOC ---
Documentation entered by Kenia Luna SCRIBE, acting as scribe for Violetta Martinez MD. Violetta Martinez MD: This documentation has been prepared by the beatriceibdannie, Kenia Luna SCRIBE, under my direction and personally reviewed by me in its entirety. I confirm that the documentation accurately reflects all work , treatment, procedures, and medical decision making performed by me. History of Present Illness - General Chief Complaint: Redness To Affected Area Stated Complaint: RIGHT LEG REDNESS Time Seen by Provider: 04/24/19 18:06 History Source: Patient Exam Limitations: No Limitations - History of Present Illness Initial Comments: 04/24/19 19:44 The patient is an 84-year-old male who presents to the emergency department with a 1-day history of redness to the right lower extremity. The patient reports redness to the right lower extremity since yesterday. The patient says the redness is associated with pain, which is aggravated with touching. The patient reports since the presentation, the redness hasnt been worsening or improving, despite amoxicillin use. The patient was prescribed amoxicillin after a dental procedure on Sunday. The patient reports getting his flu shot on Sunday, following he has episodes of chills, which resolved later Sunday. Denies fever, chills, cough, abdominal pain, Nausea, vomiting, or diarrhea. PAST MEDICAL HISTORY: Afib on Coumadin, COPD, CHF, HTN, HLD, Psoriasis PAST SURGICAL HISTORY: Cholecystectomy FAMILY HISTORY: no pertinent history SOCIAL HISTORY: Pt lives with family and is retired. Current smoker. . MEDICATIONS: reviewed ALLERGIES: As per nursing notes PCP: Dr. Leon. Review of system: General: No fevers or chills, no weakness, no weight loss HEENT: No change in vision. No sore throat,. No ear pain CardioVascular: No chest pain or shortness of breath Respiratory:No cough, or wheezing. Gastrointestinal: no nausea, vomiting, diarrhea or constipation, No rectal bleeding Genitourinary: No dysuria, hematuria, or frequency Musculoskeletal: No joint or muscle pain or swelling Neurologic: No headache, vertigo, dizziness or loss of consciousness Psychiatric: nor depression Skin: +right lower extremity redness with pain. Noother rashes or easy bruising Endocrine: no increased thirst or abnormal weight change Allergic: no skin or latex allergy All other systems reviewed and normal Physical exam: General: Well-nourished well-developed individual, no acute distress HEENT: Throat: Normal, tonsils normal, no erythema or exudate Neck: Supple, no meningeal signs, no lymphadenopathy Eyes::Pupils equal reactive and round, extraocular motion intact Chest: Nontender to palpation Cardiac: S1-S2 normal, regular rate and rhythm, no murmurs rubs or gallops Respiratory: Lungs clear to auscultation bilateral Abdomen: Soft, nondistended, normal bowel sounds, nontender to palpation diffusely Extremities: Warm, dry, no cyanosis, clubbing, or edema Skin: Right lower extremity diffused eczema and excoriation, circumferential erythema with edema noted below the knee. Erythema extending above the knee medially. Tenderness to palpation, increased warmth to touch. Rest of the skin: Warm, Dry, normal turgor, no rashes or lesions noted. Neuro: Alert and oriented x3, nonfocal exam, grossly intact, normal gait Psych: Normal mood and affect Assessment: This is an 84-year-old male brought in by his family for evaluation of right lower extremity redness swelling and some chills. Patient does have bad eczema of the bilateral lower extremities. However the right one is with increased erythema and swelling as well as warmth and tenderness on palpation. Work-up initiated including CBC, comp, EKG, chest x-ray, ultrasound Doppler right lower extremity, blood cultures, lactic acid. Antibiotics initiated including vancomycin and Zosyn. IV fluids not given as patient does have history of CHF. Patient's work-up was normal including a normal white count and no left shift. Patient was afebrile here in the emergency department. Patient given IV Vanco and Zosyn Patient is on a penicillin for prophylaxis post dental implants so want to eliminate his amoxicillin and give him something that will cover the dental issues as well as treat the infection. Patient will be started on Augmentin 875. Patient understands that there is a possibility that it may not be effective and understands that if his symptoms worsen or he develops any fevers increased pain redness or swelling he will come back to the ED for admission for IV antibiotics Patient does have a primary care doctor that he can follow-up with on Sunday. Past History - Past Medical History Allergies/Adverse Reactions: Allergies Allergy/AdvReac Type Severity Reaction Status Date / Time No Known Allergies Allergy Verified 04/24/19 18:08 Home Medications: Ambulatory Orders Atorvastatin Ca [Lipitor] 20 mg PO HS 01/10/15 Digoxin [Lanoxin -] 0.125 mg PO DAILY 01/10/15 Finasteride [Proscar] 5 mg PO DAILY 01/10/15 Metoprolol Tartrate [Lopressor -] 25 mg PO HS 01/10/15 Metoprolol Tartrate [Lopressor -] 50 mg PO AM 01/10/15 Warfarin Sodium [Coumadin] 5 mg PO HS 01/10/15 Budesonide/Formeterol Fumarate [SYMBICORT 80/4.5mcg -] 2 puff IH BID #1 inhaler 07/19/17 Triamcinolone Acetonide 1 applic TP BID #1 tube 07/19/17 Furosemide [Lasix -] 40 mg PO DAILY 08/14/18 Amoxicillin - [Amoxicillin 500mg Capsule -] 500 mg PO BID 04/24/19 Cardiac Disorders: Yes (AFIB) COPD: Yes CHF: Yes HTN: Yes Hypercholesterolemia: Yes - Surgical History Cholecystectomy: Yes - Psycho Social/Smoking Cessation Hx Smoking History: Current every day smoker Have you smoked in the past 12 months: No Number of Cigarettes Smoked Daily: 2 If you are a former smoker, when did you quit?: 6 MONTHS AGO 'Breaking Loose' booklet given: 07/16/17 Hx Alcohol Use: No Drug/Substance Use Hx: No Substance Use Type: None *Physical Exam - Vital Signs Last Vital Signs Temp Pulse Resp BP Pulse Ox 98.3 F 98 H 18 127/78 95 04/24/19 18:04 04/24/19 18:04 04/24/19 18:04 04/24/19 18:04 04/24/19 18:04 ED Treatment Course - LABORATORY CBC & Chemistry Diagram: 04/24/19 20:10 04/24/19 20:10 - RADIOLOGY Radiology Studies Ordered: Category Date Time Status CHEST X-RAY PORTABLE* [RAD] Stat Radiology 04/24/19 19:34 Ordered DUPLEX VASCUL US-1 LEG [US] Stat Ultrasound 04/24/19 19:41 Ordered Discharge - Discharge Information Problems reviewed: Yes Clinical Impression/Diagnosis: Cellulitis of right lower leg Condition: Good - Admission No - Follow up/Referral Referrals: Shellie Leon [Primary Care Provider] - - Patient Discharge Instructions Additional Instructions: You can stop the amoxicillin and instead take Augmentin 1 tablet twice a day for 10 days Call your doctor on Sunday and get an appointment to follow-up Over the weekend if you develop any increased pain, redness swelling fevers or chills come back to the ED and he will need admission for IV antibiotics. Return to the emergency department immediately with ANY new, persistent or worsening symptoms. Continue any medications as previously prescribed by your physician. You should follow up with your primary doctor as soon as possible regarding today's emergency department visit. . Please make sure your doctor reviews the results of your emergency evaluation. Thank you for coming to the Emergency Department today for your care. It was a pleasure to see you today. Please note that your evaluation is INCOMPLETE until you follow-up with your doctor. - Post Discharge Activity
[2019-04-24] MEDS ORDERED: PIPERACILLIN/TAZOBACTAM 3.375 GM VIAL IVPB ONE (20:00)
[2019-04-24] MEDS ORDERED: VANCOMYCIN 1,000 MG VIAL (RESTRICTED TO ID ONLY) ONE (20:00)
[2019-04-24 20:38] LABS: BASO % 0.3 % (0-2.0); EOS % 1.7 % (0-4.5); HEMATOCRIT 40.6 % (35.4-49); HEMOGLOBIN 13.3 GM/dl (11.7-16.9); LYMPH % 15.9 % (8-40); MCH 29.4 pg (25.7-33.7); MCHC 32.7 g/dl (32.0-35.9); MEAN CELL VOLUME 89.7 fl (80-96); MEAN PLT VOLUME 7.5 fl (7.5-11.1); MONO % 7.1 % (3.8-10.2); PLATELET COUNT 245 K/MM3 (134-434); RBC 4.53 M/mm3 (4.00-5.60); RDW 14.5 % (11.9-15.9); WHITE BLOOD COUNT 10.1 K/mm3 (4.0-10.8)
[2019-04-24 20:45] LABS: INR 2.09 (0.82-1.09); PROTHROMBIN TIME (PATIENT) 23.1 SEC (10.2-13.0)
[2019-04-24 20:49] LABS: ALBUMIN 3.3 g/dl (3.4-5.0); CALCIUM 8.8 mg/dl (8.5-10); CREATININE 1.3 mg/dl (0.55-1.3); TOT PROT 6.7 g/dl (6.4-8.2)
--- NOTE | 2019-04-25 14:12 | EKG ---
Test Reason : Blood Pressure : / mmHG Vent. Rate : 084 BPM Atrial Rate : 090 BPM P-R Int : 000 ms QRS Dur : 134 ms QT Int : 356 ms P-R-T Axes : 000 -84 079 degrees QTc Int : 420 ms ATRIAL FIBRILLATION LEFT AXIS DEVIATION RIGHT BUNDLE BRANCH BLOCK NONSPECIFIC T WAVE ABNORMALITY ABNORMAL ECG WHEN COMPARED WITH ECG OF 15-AUG-2018 09:49, NO SIGNIFICANT CHANGE WAS FOUND Confirmed by SAMEERA FOSTER MD ([id number]) on 04/25/2019 2:12:10 PM Referred By: DR LUEVANO Confirmed By:SAMEERA FOSTER MD
== END 2019-04-24 22:59 | disposition home or self-care (01) ==
LOC: FER 18:03
DX: L03.115 Cellulitis of right lower limb (principal); F17.210 Nicotine dependence, cigarettes, uncomplicated; J44.9 Chronic obstructive pulmonary disease, unspecified; I48.91 Unspecified atrial fibrillation; I10 Essential (primary) hypertension; E78.00 Pure hypercholesterolemia, unspecified
CPT/HCPCS: 36415; 71045-TC-FY; 80053; 81003; 81015; 83605; 85025; 85610; 87040; 93005; 93971-TC; 99283-25

== ENCOUNTER 2020-02-29 12:57 | Inpatient (IN) | payer OTHER ==
[2020-02-29] MEDS ORDERED: ALBUTEROL SO4 HFA INHALER IH ONE (13:04)
--- NOTE | 2020-02-29 13:11 | PDOC ---
History of Present Illness - General Chief Complaint: Edema Stated Complaint: b/l l/e swelling Time Seen by Provider: 02/29/20 13:03 - History of Present Illness Initial Comments: 02/29/20 13:08 85yo male with a PMH of Afib on Coumadin, COPD, CHF, HTN, HLD, Current Smoker 1/2PPD, Psoriasis presents for evaluation of LE swelling. Pt states his psoriasis worsened about a month ago. Pt states he has been treated with every med for psoriasis without improvement, so now he is not treating the meds. Pt states his feet and legs have swollen b/l over the last few weeks, but worsened over the last few days. Pt states he also has redness to the LE. Pt is on anticoags for afib, which were held due to a colonoscopy back in November, and is concerned for a dvt. Pt also states pain to the LE. Pt denies calf cramping or calf pain, but c/o more of pain in the foot. Pt denies cp, but states mild sob. Pt states he has been compliant with his COPD meds, but has had a cough productive white sputum (which is normal for him). Pt denies f/c. No abd pain. No n/v/d. Pt with severe psoriasis to the LE and redness to the L> R LE - with cracks and peeling of the skin. Pt denies all other complaints. PAST MEDICAL HISTORY: Afib on Coumadin, COPD, CHF, HTN, HLD, Psoriasis PAST SURGICAL HISTORY: Cholecystectomy SOCIAL HISTORY: Pt lives with family and is retired. Current smoker. ALL: NKDA Past History - Medical History Allergies/Adverse Reactions: Allergies Allergy/AdvReac Type Severity Reaction Status Date / Time No Known Allergies Allergy Verified 02/29/20 14:14 Home Medications: Ambulatory Orders Atorvastatin Ca [Lipitor] 20 mg PO HS 01/10/15 Digoxin [Lanoxin -] 0.125 mg PO DAILY 01/10/15 Finasteride [Proscar] 5 mg PO DAILY 01/10/15 Metoprolol Tartrate [Lopressor -] 25 mg PO HS 01/10/15 Metoprolol Tartrate [Lopressor -] 50 mg PO AM 01/10/15 Warfarin Sodium [Coumadin] 5 mg PO DAILY 01/10/15 Budesonide/Formeterol Fumarate [SYMBICORT 80/4.5mcg -] 2 puff IH BID #1 inhaler 07/19/17 Triamcinolone Acetonide 1 applic TP BID #1 tube 07/19/17 Furosemide [Lasix -] 40 mg PO DAILY 08/14/18 Albuterol Sulfate Inhaler - [Ventolin HFA Inhaler -] 1 puff ACHS PRN 02/29/20 Lisinopril 10 mg PO DAILY 02/29/20 Tamsulosin HCl [Flomax] 0.4 mg PO HS 02/29/20 Cardiac Disorders: Yes (AFIB) COPD: Yes CHF: Yes Disorders: Yes (URINARY RETENTION) HTN: Yes Hypercholesterolemia: Yes - Surgical History Cholecystectomy: Yes - Immunization History Immunization Up to Date: Yes - Psycho-Social/Smoking History Smoking History: Current every day smoker Have you smoked in the past 12 months: No Number of Cigarettes Smoked Daily: 2 If you are a former smoker, when did you quit?: 6 MONTHS AGO Information on smoking cessation initiated: No 'Breaking Loose' booklet given: 07/16/17 - Substance Abuse Hx (Audit-C & DAST Scrn) How often the patient has a drink containing alcohol: Never Score: In Men: 4 or > Positive; In Women: 3 or > Positive: 0 Screen Result (Pos requires Nsg. Audit-10AR): Negative In the last yr the pt used illegal drug/Rx for NonMed reason: No Score: Yes response is considered Positive: 0 Screen Result (Positive result requires Nsg. DAST-10): Negative Review of Systems - Review of Systems Able to Perform ROS?: Yes Is the patient limited Upper Sorbian proficient: No Constitutional: No: Chills, Fever HEENTM: No: Nose Congestion, Throat Pain, Throat Swelling Respiratory: Yes: Cough, Shortness of Breath, Wheezing Cardiac (ROS): No: Chest Pain, Palpitations ABD/GI: No: Diarrhea, Nausea, Vomiting, Abdominal cramping : No: Burning, Dysuria Musculoskeletal: Yes: Joint Swelling, Other (edema to LE). No: Back Pain Integumentary: Yes: Dryness, Other (psoriasis outbreak) Neurological: No: Headache, Numbness, Paresthesia, Tingling, Tremors, Weakness, Ataxia All Other Systems: Reviewed and Negative *Physical Exam - Vital Signs Last Vital Signs Temp Pulse Resp BP Pulse Ox 97.2 F L 62 18 99/53 L 95 02/29/20 12:58 02/29/20 12:58 02/29/20 12:58 02/29/20 12:58 02/29/20 12:58 - Physical Exam General Appearance: Yes: Nourished, Appropriately Dressed. No: Apparent Distress HEENT: positive: EOMI, Normal Voice Neck: positive: Supple Respiratory/Chest: positive: Rhonchi, Wheezing. negative: Respiratory Distress Cardiovascular: positive: S1, S2, Irregularly Irregular Gastrointestinal/Abdominal: positive: Soft. negative: Guarding, Rebound, Tenderness Musculoskeletal: positive: Normal Inspection. negative: Decreased Range of Mo tion, Vertebral Tenderness Extremity: positive: Normal Capillary Refill, Pedal Edema, Swelling (b/l LE swelling, 3+ pitting edema) Integumentary: positive: Other (psoriatic plaques and dry peeling skin diffusely over the body, worse over the feet with dry cracked feet and skin sloughing to the LE b/l, warmth, redness to LLE>RLE, no purulent drainage) Neurologic: positive: Fully Oriented, Alert, Normal Mood/Affect, Motor Strength 5/5, Other (ambulatory with a steady gait) Heart Score/ECG Review - ECG Intrepretation Comment:: 02/29/20 14:04 afib at 96, l axis, pvc, interventricular conduction delay, unchanged from prior ekg, abnl ekg, no acute st/t wave findings ED Treatment Course - LABORATORY CBC & Chemistry Diagram: 02/29/20 13:40 02/29/20 12:45 - RADIOLOGY Radiology Studies Ordered: Category Date Time Status CHEST PA & LAT [RAD] Stat Radiology 02/29/20 13:04 Ordered DUPLEX VASCUL US-2LEGS [US] Stat Ultrasound 02/29/20 13:04 Ordered Medical Decision Making - Medical Decision Making 02/29/20 13:15 a/p: 85yo male with LE swelling -daughter very concerned over extra water in the legs -legs are edematous, but also with redness, warmth, peeling skin, more concerned for cellulitis secondary to cracked skin from psoriasis -pt also with wheezing, mild copd exacerbation -will send labs, ekg, cxr, LE duplex ultrasound given patient held his coumadin for his colonoscopy recently -will start abx -will monitor and reassess 02/29/20 13:34 pt with low bp upon arrival states he has been doubling up on his lasix at home secondary to the leg swelling without improvement in leg swelling pt with skin tenting, pt with dry cracked tongue and dry mm pt arrives hypotensive, will give small bolus ivf for bp and dehydration 02/29/20 14:04 case discussed with Nelson Mckenzie from [facility] who accepts pt to service 02/29/20 14:07 mildly elevated wbc dehydration, elevated bun 02/29/20 14:08 cxr without acute pna, pleural effusion, or edema - pending official read 02/29/20 14:15 trop 0.5 02/29/20 14:56 inr >3 02/29/20 15:55 no dvt Discharge - Discharge Information Problems reviewed: Yes Clinical Impression/Diagnosis: COPD (chronic obstructive pulmonary disease), Psoriasis, Cellulitis, Dehydration Condition: Fair - Admission Yes - Follow up/Referral - Patient Discharge Instructions - Post Discharge Activity
[2020-02-29] MEDS ORDERED: VANCOMYCIN 1 GM in D5W (PRE-DOCKED) 1,000 MG/250 ML IVPB ONE (13:16)
[2020-02-29] MEDS ORDERED: SODIUM CHLORIDE 0.9% 1000 ML INFUS.BAG IV ONE (13:32)
[2020-02-29] MEDS ORDERED: VANCOMYCIN 1,000 MG VIAL (RESTRICTED TO ID ONLY) ONE (13:57)
[2020-02-29 14:01] LABS: BASO % 0.5 % (0-2.0); EOS % 4.8 % (0-4.5); HEMATOCRIT 37.3 % (35.4-49); HEMOGLOBIN 11.8 GM/dl (11.7-16.9); LYMPH % 10.8 % (8-40); MCH 28.7 pg (25.7-33.7); MCHC 31.7 g/dl (32.0-35.9); MEAN CELL VOLUME 90.5 fl (80-96); MEAN PLT VOLUME 7.3 fl (7.5-11.1); MONO % 7.3 % (3.8-10.2); NEUT % 76.6 % (42.8-82.8); PLATELET COUNT 334 K/MM3 (134-434); RBC 4.13 M/mm3 (4.00-5.60); RDW 15.1 % (11.9-15.9); WHITE BLOOD COUNT 11.3 K/mm3 (4.0-10.8)
[2020-02-29 14:04] LABS: BILIRUBIN,TOTAL 1.3 mg/dl (0.2-1); CREATININE 1.3 mg/dl (0.55-1.3); POTASSIUM 4.9 mmol/L (3.5-5.1); TOT PROT 5.9 g/dl (6.4-8.2)
[2020-02-29 14:16] LABS: ACTIVATED PTT 37.8 SECONDS (25.2-36.5)
[2020-02-29 14:20] LABS: INR 3.68 (0.82-1.09); PROTHROMBIN TIME (PATIENT) 40.2 SEC (10.2-13.0)
[2020-02-29 14:46] LABS: VENOUS BASE EXCESS -1.6 mmol/L (-2-2); VENOUS O2 SATURATION 76.1 % (70-80); VENOUS PCO2 49.3 mmHg (38-52); VENOUS PH 7.324 (7.310-7.410)
[2020-02-29 15:01] LABS: N-TERMINAL BNP 5110.6 pg/ml (5-450)
--- NOTE | 2020-02-29 15:58 | HP ---
CHIEF COMPLAINT: LLE redness and swelling PCP:Dr. Cardona Cardiology Dr. erickson, tele # [phone] HISTORY OF PRESENT ILLNESS: This is an 85yo male with a PMH of Afib on Coumadin, COPD,CHF, HTN, HLD, Current Smoker 1/2PPD and Psoriasis, who presents for evaluation of LLE swelling/ redness. Pt states his psoriasis worsened about a month ago. Pt states he has been treated with several treatment modalities for psoriasis without improvement, so now he is not treating with any meds expect the cream. Pt states his feet and legs have swollen b/l over the last few weeks, but worsened over the last few days,left leg > Rt. Pt states he has been doubling up on his Lasix at home secondary to the leg swelling without improvement in leg swelling. Pt also reports ANGULO for few days, denies NINO, dizziness, cp, cough, fever, chills, abdominal pain, N/V/D or urinary symptoms. Reports hx of melena in November 2019 and evaluated [address] GI Dr[address] Draper, underwent colonoscopy which revealed bleeding / cancerous polyp which was removed, reportedly not metastatic disease. No need for chemo or radiation. In ER low BP, s/p 250 cc NS x1 ER course was notable for (1)CxR: No acute lung pathology (2)wbc 11.3,Bun 25, cre 1.3, trop ).05, BNP 5110 (3)EKG: A- Fib Recent Travel:No PAST MEDICAL HISTORY: Cholecystectomy Hernia sx - Rt inguinal in 1994 PAST SURGICAL HISTORY: Social History: Smoking:Ye Alcohol:No Drugs: No Pt lives with daughter * Family Hx Father , HTN, CVA , at age 80's Brother of [place] at age 38 Allergies No Known Allergies Allergy (Verified 02/29/20 14:14) HOME MEDICATIONS: Home Medications Medication Instructions Recorded Atorvastatin Ca [Lipitor] 20 mg PO HS 01/10/15 Digoxin [Lanoxin -] 0.125 mg PO DAILY 01/10/15 Finasteride [Proscar] 5 mg PO DAILY 01/10/15 Metoprolol Tartrate [Lopressor -] 25 mg PO HS 01/10/15 Metoprolol Tartrate [Lopressor -] 50 mg PO AM 01/10/15 Warfarin Sodium [Coumadin] 5 mg PO DAILY 01/10/15 Budesonide/Formeterol Fumarate 2 puff IH BID #1 inhaler 07/19/17 [SYMBICORT 80/4.5mcg -] Triamcinolone Acetonide 1 applic TP BID #1 tube 07/19/17 Furosemide [Lasix -] 40 mg PO DAILY 08/14/18 Albuterol Sulfate Inhaler - 1 puff ACHS PRN 02/29/20 [Ventolin HFA Inhaler -] Lisinopril 10 mg PO DAILY 02/29/20 Tamsulosin HCl [Flomax] 0.4 mg PO HS 02/29/20 REVIEW OF SYSTEMS CONSTITUTIONAL: Absent: fever, chills, diaphoresis, generalized weakness, malaise, loss of appetite, weight change HEENT: Absent: rhinorrhea, nasal congestion, throat pain, throat swelling, difficulty swallowing, mouth swelling, ear pain, eye pain, visual changes CARDIOVASCULAR: Absent: chest pain, syncope, palpitations, irregular heart rate, lightheadedness, peripheral edema RESPIRATORY: Absent: cough, shortness of breath, dyspnea with exertion, orthopnea, wheezing, stridor, hemoptysis GASTROINTESTINAL: Absent: abdominal pain, abdominal distension, nausea, vomiting, diarrhea, constipation, melena, hematochezia GENITOURINARY: Absent: dysuria, frequency, urgency, hesitancy, hematuria, flank pain, genital pain MUSCULOSKELETAL: LLE redness and swelling Absent: myalgia, arthralgia, joint swelling, back pain, neck pain SKIN: Diffuse dry flaky skin(psoriasis outbreak) Absent: rash, itching, pallor HEMATOLOGIC/IMMUNOLOGIC: Absent: easy bleeding, easy bruising, lymphadenopathy, frequent infections ENDOCRINE: Absent: unexplained weight gain, unexplained weight loss, heat intolerance, cold intolerance NEUROLOGIC: Absent: headache, focal weakness or paresthesias, dizziness, unsteady gait, seizure, mental status changes, bladder or bowel incontinence PSYCHIATRIC: Absent: anxiety, depression, suicidal or homicidal ideation, hallucinations. PHYSICAL EXAMINATION Vital Signs - 24 hr 02/29/20 12:58 Temperature 97.2 F L Pulse Rate 62 Respiratory 18 Rate Blood Pressure 99/53 L O2 Sat by Pulse 95 Oximetry (%) GENERAL: Awake, alert, and fully oriented, in no acute distress. HEAD: Normal with no signs of trauma. EYES: Pupils equal, round and reactive to light, extraocular movements intact, sclera anicteric, conjunctiva clear. No lid lag. EARS, NOSE, THROAT: Ears normal, nares patent, oropharynx clear without exuda chao. Dry mouth NECK: Normal range of motion, supple without lymphadenopathy, JVD, or masses. LUNGS: Breath sounds equal, clear to auscultation bilaterally. positive wheezes, and no crackles. No accessory muscle use. HEART: Irregular without murmur, rub or gallop. ABDOMEN: Soft, nontender, not distended, normoactive bowel sounds, no guarding, no rebound, no masses. No hepatomegaly or splenomegaly. MUSCULOSKELETAL: Normal range of motion at all joints. No bony deformities or tenderness. No CVA tenderness. UPPER EXTREMITIES: 2+ pulses, warm, well-perfused. No cyanosis. No clubbing. No peripheral edema. LOWER EXTREMITIES: 2+ pulses, warm, well-perfused. No calf tenderness, positive edema LLE with redness and swelling, non- tender, pulse present NEUROLOGICAL: Cranial nerves II-XII intact. Normal speech. Normal gait. PSYCHIATRIC: Cooperative. Good eye contact. Appropriate mood and affect. SKIN: Warm,Diffuse dry flaky skin(psoriasis outbreak),no lesions normal capillary refill. Laboratory Results - last 24 hr 02/29/20 02/29/20 02/29/20 12:45 13:20 13:20 WBC RBC Hgb Hct MCV MCH MCHC RDW Plt Count MPV Absolute Neuts (auto) Neutrophils % Lymphocytes % Monocytes % Eosinophils % Basophils % PT with INR INR PTT (Actin FS) VBG pH 7.324 POC VBG pCO2 49.3 POC VBG pO2 44.1 VBG HCO3 25.1 VBG O2 Sat (Malik) 76.1 VBG Base Excess -1.6 Sodium 137 Potassium 4.9 Chloride 102 Carbon Dioxide 25 Anion Gap 10 BUN 25.0 H Creatinine 1.3 Est GFR (CKD-EPI)AfAm 58.48 Est GFR (CKD-EPI)NonAf 50.46 Random Glucose 107 H Calcium 8.0 L Total Bilirubin 1.3 H AST 24 ALT 18 Alkaline Phosphatase 69 Creatine Kinase 104 Troponin I 0.05 B-Natriuretic Peptide 5110.6 H Total Protein 5.9 L Albumin 3.0 L 02/29/20 02/29/20 13:40 13:40 WBC 11.3 H RBC 4.13 Hgb 11.8 Hct 37.3 MCV 90.5 MCH 28.7 MCHC 31.7 L RDW 15.1 Plt Count 334 D MPV 7.3 L Absolute Neuts (auto) 8.7 Neutrophils % 76.6 Lymphocytes % 10.8 D Monocytes % 7.3 Eosinophils % 4.8 H D Basophils % 0.5 PT with INR 40.2 H INR 3.68 H PTT (Actin FS) 37.8 H VBG pH POC VBG pCO2 POC VBG pO2 VBG HCO3 VBG O2 Sat (Malik) VBG Base Excess Sodium Potassium Chloride Carbon Dioxide Anion Gap BUN Creatinine Est GFR (CKD-EPI)AfAm Est GFR (CKD-EPI)NonAf Random Glucose Calcium Total Bilirubin AST ALT Alkaline Phosphatase Creatine Kinase Troponin I B-Natriuretic Peptide Total Protein Albumin ASSESSMENT/PLAN: This is a 85 year old man with multiple medical problems,who presents to the ED for evaluation of lower ext redness and swelling and also reports SOB. * Cellulitis - LLE - DVT ruled out - afebrile with mild leukocytosis - s/p Vanco in ER - ordered Zosyn a as per ID Dr. Urbano - ID consult - will f/u on BC - will f/u on CBC * SOB, hx of CHF, COPD - CXR- No acute lung pathology - BNP 5111 - cardiology consult,will hold off on Echo until seen by cardiology - tele monitoring - will hold off Lasix, due to clinical dehydration and reassess in AM - will cont on MARK, BB with holding parameters *Afib- HR controlled -[id number] - will check dig level and cont on Digoxin - will hold off on Coumadin, INR3.68 - will cont on BB for rate control *HTN- BP low - Continue Metoprolol and Lisinopril with holding parameters - will monitor BP closely *HLD -Continue Lipitor *COPD- active smoker - will cont on home Inhalers - monitor O2 sat - ref Nicotine patch - smoking cessation counselling done *BPH - Continue Proscar and Flomax * Psoriasis - used to see Derm Dr. 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 - New Patient This patient is new to me today: Yes Date on this admission: 02/29/20 - Critical Care Critical Care patient: No
[2020-02-29] MEDS ORDERED: SODIUM CHLORIDE 1,000 ML IV SCH (16:00)
[2020-02-29] MEDS ORDERED: ALBUTEROL SO4 HFA INHALER IH PRN (16:23)
[2020-02-29 18:10] VITALS: BMI 25.3
[2020-02-29 18:23] LABS: EPITHELIAL CELLS FEW /hpf
[2020-02-29] MEDS ORDERED: PIPERACILLIN/TAZOBACTAM 3.375 GM VIAL IVPB ONE (18:38)
[2020-02-29] MEDS ORDERED: DEXTROSE 5%-WATER - 50 ML IVPB ONE (18:39)
[2020-02-29] MEDS: PIPERACILLIN/TAZOB 3.375 GM 3.375 GM in DEXTROSE 5%-WATER - 50 ML IVPB SCH (18:57)
[2020-02-29] MEDS: ATORVASTATIN CA 20 MG TABLET (FP) PO SCH (22:07)
[2020-02-29] MEDS: METOPROLOL TARTRATE 25 MG TABLET (FP) PO SCH (22:07)
[2020-02-29] MEDS: BUDESONIDE/FORMETEROL FUMARATE 80/4.5 mcg INHALER IH SCH (22:56)
[2020-02-29] MEDS: TRIAMCINOLONE ACET 0.1% CREAM 80 GM TUBE TP SCH (22:57)
[2020-03-01] MEDS ORDERED: PIPERACILLIN/TAZOBACTAM 3.375 GM VIAL IVPB ONE ×3 (01:14→17:25)
[2020-03-01] MEDS ORDERED: DEXTROSE 5%-WATER - 50 ML IVPB ONE ×3 (01:15→17:25)
[2020-03-01] MEDS: PIPERACILLIN/TAZOB 3.375 GM 3.375 GM in DEXTROSE 5%-WATER - 50 ML IVPB SCH ×3 (01:22→17:35)
[2020-03-01 09:11] LABS: INR 3.67 (0.82-1.09); PROTHROMBIN TIME (PATIENT) 40.1 SEC (10.2-13.0)
[2020-03-01] MEDS ORDERED: PT OWN MED DRAWER 7, Y5N ONE (09:17)
[2020-03-01 09:18] LABS: CREATININE 1.4 mg/dl (0.55-1.3); POTASSIUM 4.5 mmol/L (3.5-5.1)
[2020-03-01] MEDS: DIGOXIN 0.125 MG TABLET (FP) PO SCH (09:21)
[2020-03-01] MEDS: FINASTERIDE 5 MG TABLET (FP) PO SCH (09:21)
[2020-03-01] MEDS: FUROSEMIDE 40 MG TABLET (FP) PO SCH (09:21)
[2020-03-01] MEDS: METOPROLOL TARTRATE 50 MG TABLET (FP) PO SCH ×2 (09:23→09:36)
[2020-03-01] MEDS: TAMSULOSIN HCL 0.4 MG CAP PO SCH (09:23)
[2020-03-01] MEDS: TRIAMCINOLONE ACET 0.1% CREAM 80 GM TUBE TP SCH ×2 (09:23→21:19)
[2020-03-01] MEDS: BUDESONIDE/FORMETEROL FUMARATE 80/4.5 mcg INHALER IH SCH ×2 (09:23→21:16)
[2020-03-01] MEDS: LISINOPRIL 10 MG TABLET (FP) PO SCH (09:23)
[2020-03-01 09:37] LABS: BASO % 0.3 % (0-2.0); EOS % 9.3 % (0-4.5); HEMOGLOBIN 11.8 GM/dl (11.7-16.9); LYMPH % 14.6 % (8-40); MCH 30.2 pg (25.7-33.7); MCHC 33.6 g/dl (32.0-35.9); MEAN CELL VOLUME 89.8 fl (80-96); MEAN PLT VOLUME 7.4 fl (7.5-11.1); MONO % 8.2 % (3.8-10.2); NEUT % 67.6 % (42.8-82.8); PLATELET COUNT 305 K/MM3 (134-434); RDW 14.4 % (11.9-15.9); WHITE BLOOD COUNT 10.6 K/mm3 (4.0-10.8)
[2020-03-01] MEDS ORDERED: ALBUTEROL SO4 2.5/IPRATROPIUM 0.5 INH SOL 3 ML VIAL.NEB. NEB PRN (09:53)
--- NOTE | 2020-03-01 10:44 | PN ---
Physical Exam: SUBJECTIVE: Patient seen and examined at bedside. Pt states left leg feels a lot better and swelling has decreased. Pt denies LE pain, chest pain, SOB. OBJECTIVE: This is an 85yo male with a PMH of Afib on Coumadin, COPD,CHF, HTN, HLD, Current Smoker 1/2PPD and Psoriasis, who presents for evaluation of LLE swelling/ redness. Pt states his psoriasis worsened about a month ago. Pt states he has been treated with several treatment modalities for psoriasis without improvement, so now he is not treating with any meds expect the cream. Pt states his feet and legs have swollen b/l over the last few weeks, but worsened over the last few days,left leg > Rt. Pt states he has been doubling up on his Lasix at home secondary to the leg swelling without improvement in leg swelling. Pt also reports ANGULO for few days, denies NINO, dizziness, cp, cough, fever, chills, abdominal pain, N/V/D or urinary symptoms. Reports hx of melena in November 2019 and evaluated by GI Dr. Draper, underwent colonoscopy which revealed bleeding / cancerous polyp which was removed, reportedly not metastatic disease. No need for chemo or radiation. In ER low BP, s/p 250 cc NS x1 Vital Signs Period Temp Pulse Resp BP Sys/Molina Pulse Ox Last 24 Hr 97.2 F-98.1 F 62-113 18-18 99-120/52-73 92-100 GENERAL: The patient is awake, alert, and fully oriented, in no acute distress. HEAD: Normal with no signs of trauma. EYES: PERRL, extraocular movements intact, sclera anicteric, conjunctiva clear. No ptosis. ENT: Ears normal, nares patent, oropharynx clear without exudates, moist mucous membranes. NECK: Trachea midline, full range of motion, supple. LUNGS: + BL rhonchi, expiratory wheezes, good chest expansion, no accessory muscle use. HEART: Regular rate and rhythm, S1, S2 without murmur, rub or gallop. ABDOMEN: Soft, nontender, nondistended, normoactive bowel sounds, no guarding, no rebound, no hepatosplenomegaly, no masses. EXTREMITIES: 2+ pulses, warm, well-perfused, no edema. NEUROLOGICAL: Cranial nerves II through XII grossly intact. Normal speech, gait not observed. PSYCH: Normal mood, normal affect. SKIN: Generalized dry, flaky, reddened skin, + plaque psoriasis on BL LE, BL UE, trunk and back Laboratory Results - last 24 hr 02/29/20 02/29/20 02/29/20 12:45 13:20 13:20 WBC RBC Hgb Hct MCV MCH MCHC RDW Plt Count MPV Absolute Neuts (auto) Neutrophils % Lymphocytes % Monocytes % Eosinophils % Basophils % PT with INR INR PTT (Actin FS) VBG pH 7.324 POC VBG pCO2 49.3 POC VBG pO2 44.1 VBG HCO3 25.1 VBG O2 Sat (Malik) 76.1 VBG Base Excess -1.6 Sodium 137 Potassium 4.9 Chloride 102 Carbon Dioxide 25 Anion Gap 10 BUN 25.0 H Creatinine 1.3 Est GFR (CKD-EPI)AfAm 58.48 Est GFR (CKD-EPI)NonAf 50.46 Random Glucose 107 H Calcium 8.0 L Total Bilirubin 1.3 H AST 24 ALT 18 Alkaline Phosphatase 69 Creatine Kinase 104 Troponin I 0.05 B-Natriuretic Peptide 5110.6 H Total Protein 5.9 L Albumin 3.0 L Urine Color Urine Appearance Urine pH Urine Protein Urine Glucose (UA) Urine Ketones Urine Blood Urine Nitrite Urine Bilirubin Urine Urobilinogen Ur Leukocyte Esterase Urine RBC Urine WBC Ur Transition Epith Cell Digoxin COVID-19 (RICARDO) 02/29/20 02/29/20 02/29/20 13:40 13:40 14:40 WBC 11.3 H RBC 4.13 Hgb 11.8 Hct 37.3 MCV 90.5 MCH 28.7 MCHC 31.7 L RDW 15.1 Plt Count 334 D MPV 7.3 L Absolute Neuts (auto) 8.7 Neutrophils % 76.6 Lymphocytes % 10.8 D Monocytes % 7.3 Eosinophils % 4.8 H D Basophils % 0.5 PT with INR 40.2 H INR 3.68 H PTT (Actin FS) 37.8 H VBG pH POC VBG pCO2 POC VBG pO2 VBG HCO3 VBG O2 Sat (Malik) VBG Base Excess Sodium Potassium Chloride Carbon Dioxide Anion Gap BUN Creatinine Est GFR (CKD-EPI)AfAm Est GFR (CKD-EPI)NonAf Random Glucose Calcium Total Bilirubin AST ALT Alkaline Phosphatase Creatine Kinase Troponin I B-Natriuretic Peptide Total Protein Albumin Urine Color Urine Appearance Urine pH Urine Protein Urine Glucose (UA) Urine Ketones Urine Blood Urine Nitrite Urine Bilirubin Urine Urobilinogen Ur Leukocyte Esterase Urine RBC Urine WBC Ur Transition Epith Cell Digoxin COVID-19 (RICARDO) Not detected 02/29/20 02/29/20 03/01/20 17:20 18:45 06:00 WBC 10.6 RBC 3.90 L Hgb 11.8 Hct 35.0 L MCV 89.8 MCH 30.2 MCHC 33.6 RDW 14.4 Plt Count 305 MPV 7.4 L Absolute Neuts (auto) 7.1 Neutrophils % 67.6 Lymphocytes % 14.6 D Monocytes % 8.2 Eosinophils % 9.3 H D Basophils % 0.3 PT with INR INR PTT (Actin FS) VBG pH POC VBG pCO2 POC VBG pO2 VBG HCO3 VBG O2 Sat (Malik) VBG Base Excess Sodium Potassium Chloride Carbon Dioxide Anion Gap BUN Creatinine Est GFR (CKD-EPI)AfAm Est GFR (CKD-EPI)NonAf Random Glucose Calcium Total Bilirubin AST ALT Alkaline Phosphatase Creatine Kinase Troponin I B-Natriuretic Peptide Total Protein Albumin Urine Color Yellow Urine Appearance Clear Urine pH 5.0 Urine Protein Negative Urine Glucose (UA) Negative Urine Ketones Negative Urine Blood Trace-intact Urine Nitrite Negative Urine Bilirubin Negative Urine Urobilinogen 0.2 Ur Leukocyte Esterase Negative Urine RBC 2-5 Urine WBC 0-2 Ur Transition Epith Cell Few Digoxin 0.75 L COVID-19 (RICARDO) 03/01/20 03/01/20 03/01/20 06:00 06:00 06:00 WBC RBC Hgb Hct MCV MCH MCHC RDW Plt Count MPV Absolute Neuts (auto) Neutrophils % Lymphocytes % Monocytes % Eosinophils % Basophils % PT with INR 40.1 H INR 3.67 H PTT (Actin FS) VBG pH POC VBG pCO2 POC VBG pO2 VBG HCO3 VBG O2 Sat (Malik) VBG Base Excess Sodium 137 Potassium 4.5 Chloride 103 Carbon Dioxide 25 Anion Gap 9 BUN 21.0 H Creatinine 1.4 H Est GFR (CKD-EPI)AfAm 53.47 Est GFR (CKD-EPI)NonAf 46.13 Random Glucose 80 Calcium 8.0 L Total Bilirubin AST ALT Alkaline Phosphatase Creatine Kinase Troponin I 0.06 H B-Natriuretic Peptide Total Protein Albumin Urine Color Urine Appearance Urine pH Urine Protein Urine Glucose (UA) Urine Ketones Urine Blood Urine Nitrite Urine Bilirubin Urine Urobilinogen Ur Leukocyte Esterase Urine RBC Urine WBC Ur Transition Epith Cell Digoxin COVID-19 (RICARDO) Active Medications Generic Name Dose Route Start Last Admin Trade Name Amrik PRN Reason Stop Dose Admin Albuterol/Ipratropium 1 amp 03/01/20 09:53 Duoneb - NEB Q6H PRN SHORTNESS OF BREATH Atorvastatin Calcium 20 mg 02/29/20 22:00 02/29/20 22:07 Lipitor - PO 20 mg HS GINA Administration Budesonide/Formoterol Fumarate 2 puff 02/29/20 22:00 03/01/20 09:23 Symbicort 80/4.5mcg - IH 2 puff BID GINA Administration Digoxin 0.125 mg 03/01/20 10:00 03/01/20 09:21 Lanoxin - PO 0.125 mg DAILY GINA Administration Finasteride 5 mg 03/01/20 10:00 03/01/20 09:21 Proscar - PO 5 mg DAILY GINA Administration Furosemide 40 mg 03/01/20 10:00 03/01/20 09:21 Lasix - PO 40 mg DAILY GINA Administration Piperacillin Sod/Tazobactam 50 mls @ 100 mls/hr 02/29/20 18:00 Sod 3.375 gm/ Dextrose IVPB Q8H-IV GINA Protocol Piperacillin Sod/Tazobactam 50 mls @ 100 mls/hr 02/29/20 16:45 03/01/20 09:24 Sod 3.375 gm/ Dextrose IVPB 03/01/20 18:29 100 mls/hr Q8H-IV GINA Administration Protocol Lisinopril 10 mg 03/01/20 10:00 03/01/20 09:23 Prinivil PO 10 mg DAILY GINA Administration Metoprolol Tartrate 25 mg 02/29/20 22:00 02/29/20 22:07 Lopressor - PO 25 mg HS GINA Administration Metoprolol Tartrate 50 mg 03/01/20 10:00 03/01/20 09:36 Lopressor - PO Not Given DAILY GINA Tamsulosin HCl 0.4 mg 03/01/20 08:30 03/01/20 09:23 Flomax - PO 0.4 mg DAILY@0830 GINA Administration Triamcinolone Acetonide 1 applic 02/29/20 22:00 03/01/20 09:23 Triamcinolone Acetonide TP 1 applic BID GINA Administration ASSESSMENT/PLAN: see Problem List Problem List - Problems (1) Cellulitis Assessment/Plan: WBC normal this morning Left leg hot, dry, erythematous L>R Continue Zosyn seen by ID Blood cultures negative Code(s): L03.90 - CELLULITIS, UNSPECIFIED (2) COPD (chronic obstructive pulmonary disease) Assessment/Plan: Chest Xray negative Continue Symbicort Inhaler Duonebs q6h PRN Code(s): J44.9 - CHRONIC OBSTRUCTIVE PULMONARY DISEASE, UNSPECIFIED (3) Dehydration Assessment/Plan: s/p IV Fluids Fluids stopped d/t congestion Cr 1.4 - continue to monitor Encourage oral fluid intake Code(s): E86.0 - DEHYDRATION (4) Psoriasis Assessment/Plan: Continue Triamcinolone cream sees consumer services consultant outpt Code(s): L40.9 - PSORIASIS, UNSPECIFIED (5) Afib Assessment/Plan: continue metoprolol and digoxin Cardiology consulted Continue cardiac monitoring Code(s): I48.91 - UNSPECIFIED ATRIAL FIBRILLATION (6) CHF (congestive heart failure) Assessment/Plan: + congestion BL on physical exam IV Fluids discontinued Continue lasix Code(s): I50.9 - HEART FAILURE, UNSPECIFIED (7) Current smoker Assessment/Plan: Manufacturing Coordinator on smoking cessation Code(s): F17.200 - NICOTINE DEPENDENCE, UNSPECIFIED, UNCOMPLICATED (8) HLD (hyperlipidemia) Assessment/Plan: Continue Lipitor Code(s): E78.5 - HYPERLIPIDEMIA, UNSPECIFIED (9) HTN (hypertension) Assessment/Plan: Normotensive today Continue metoprolol and lisinopril Code(s): I10 - ESSENTIAL (PRIMARY) HYPERTENSION (10) BPH (benign prostatic hyperplasia) Assessment/Plan: Continue Flomax Code(s): N40.0 - BENIGN PROSTATIC HYPERPLASIA WITHOUT LOWER URINRY TRACT SYMP (11) DVT prophylaxis Assessment/Plan: Hold coumadin d/t supratherapeutic INR Re-check INR tomorrow Code(s): BVO6009 - Visit type - Emergency Visit Emergency Visit: Yes ED Registration Date: 02/29/20 Care time: The patient presented to the Emergency Department on the above date and was hospitalized for further evaluation of their emergent condition. - New Patient This patient is new to me today: Yes Date on this admission: 03/01/20 - Critical Care Critical Care patient: No - Discharge Referral Referred to [facility] Med P.C.: No - Medication Review Med list reviewed for High Risk Meds patients 65 and older: Yes
--- NOTE | 2020-03-01 12:32 | CON.ID ---
Consult Consult Specialty:: infectious diseases Referred by:: Reason for Consultation:: cellulitis - Past Medical History Cardio/Vascular: Yes: AFIB (chronic , on coumadin), HTN, Hyperlipdemia Pulmonary: Yes: COPD Endocrine: Yes: Other (pre-diabetes) Dermatology: Yes: Other (psoriasis) Additional Medical History: old clot in lesser saphenous vein on the left since 01/06) - Past Surgical History Past Surgical History: Yes: Cholecystectomy - Alcohol/Substance Use Hx Alcohol Use: No - Smoking History Smoking history: Current every day smoker Have you smoked in the past 12 months: Yes Aproximately how many cigarettes per day: 4 If you are a former smoker, when did you quit?: 6 MONTHS AGO - Social History Usual Living Arrangement: With Child ADL: Independent Occupation: Retired PO History of Recent Travel: No Home Medications - Allergies Allergies/Adverse Reactions: Allergies Allergy/AdvReac Type Severity Reaction Status Date / Time No Known Allergies Allergy Verified 02/29/20 14:14 - Home Medications Home Medications: Ambulatory Orders Atorvastatin Ca [Lipitor] 20 mg PO HS 01/10/15 Digoxin [Lanoxin -] 0.125 mg PO DAILY 01/10/15 Finasteride [Proscar] 5 mg PO DAILY 01/10/15 Metoprolol Tartrate [Lopressor -] 25 mg PO HS 01/10/15 Metoprolol Tartrate [Lopressor -] 50 mg PO AM 01/10/15 Warfarin Sodium [Coumadin] 5 mg PO DAILY 01/10/15 Budesonide/Formeterol Fumarate [SYMBICORT 80/4.5mcg -] 2 puff IH BID #1 inhaler 07/19/17 Triamcinolone Acetonide 1 applic TP BID #1 tube 07/19/17 Furosemide [Lasix -] 40 mg PO DAILY 08/14/18 Albuterol Sulfate Inhaler - [Ventolin HFA Inhaler -] 1 puff ACHS PRN 02/29/20 Lisinopril 10 mg PO DAILY 02/29/20 Tamsulosin HCl [Flomax] 0.4 mg PO HS 02/29/20 Physical Exam Vital Signs: Vital Signs Temperature 98.1 F 03/01/20 09:54 Pulse Rate 112 H 03/01/20 09:54 Respiratory Rate 18 03/01/20 09:54 Blood Pressure 111/52 L 03/01/20 09:54 O2 Sat by Pulse Oximetry (%) 92 L 03/01/20 09:54 Labs: CBC, BMP 03/01/20 06:00 03/01/20 06:00
[2020-03-01] MEDS ORDERED: PIPERACILLIN/TAZOB 3.375 GM 3.375 GM in DEXTROSE 5%-WATER - 50 ML IVPB SCH (12:45)
--- NOTE | 2020-03-01 12:45 | EKG ---
Test Reason : Blood Pressure : / mmHG Vent. Rate : 096 BPM Atrial Rate : 098 BPM P-R Int : 000 ms QRS Dur : 126 ms QT Int : 320 ms P-R-T Axes : 000 -72 092 degrees QTc Int : 404 ms ATRIAL FIBRILLATION WITH PREMATURE VENTRICULAR OR ABERRANTLY CONDUCTED COMPLEXES LEFT AXIS DEVIATION NON-SPECIFIC INTRA-VENTRICULAR CONDUCTION BLOCK T WAVE ABNORMALITY, CONSIDER ANTEROLATERAL ISCHEMIA ABNORMAL ECG WHEN COMPARED WITH ECG OF 24-APR-2019 20:31, NON-SPECIFIC INTRA-VENTRICULAR CONDUCTION BLOCK HAS REPLACED RIGHT BUNDLE BRANCH BLOCK Confirmed by Kennedy Walter ([id number]) on 03/01/2020 12:45:30 PM Referred By: KARINA KAYE Confirmed By:Kennedy Walter
--- NOTE | 2020-03-01 12:52 | CON.CARD ---
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 Coronary angiogram 06/04/2003 documented totalmid LAD occlusion, total occlusion of the posterior descending, 95% stenosis of the posterior left ventricular branch of the right coronary artery, 50% mid circumflex disease. He has been on chronic warfarin therapy regulated by hisprunc healthry physician Dr. Shellie Leon. He has extensive psoriasis being treated by a loading machine operator helper. No chest pain. Echocardiogram 08/14/19: mild lad, nl lv size, mild lvh, apical akinesis, nl lv systolic function, fcoav, mild MR/TR, small pericardial effusion, LVEF 55%. PASP 33mmHg. He is now admitted with lower extremity swelling, cellulitis and heart failure. Symptoms improved after diuretic therapy. CXR shows bilateral interstitial edema and BNP 5k - Past Medical History Cardio/Vascular: Yes: AFIB (chronic , on coumadin), HTN, Hyperlipdemia Pulmonary: Yes: COPD Endocrine: Yes: Other (pre-diabetes) Dermatology: Yes: Other (psoriasis) Additional Medical History: old clot in lesser saphenous vein on the left since 01/06) - Past Surgical History Past Surgical History: Yes: Cholecystectomy - Alcohol/Substance Use Hx Alcohol Use: No - Smoking History Smoking history: Current every day smoker Have you smoked in the past 12 months: Yes Aproximately how many cigarettes per day: 4 If you are a former smoker, when did you quit?: 6 MONTHS AGO - Social History Usual Living Arrangement: With Child ADL: Independent Occupation: Retired PO History of Recent Travel: No Home Medications - Allergies Allergies/Adverse Reactions: Allergies Allergy/AdvReac Type Severity Reaction Status Date / Time No Known Allergies Allergy Verified 02/29/20 14:14 - Home Medications Home Medications: Ambulatory Orders Atorvastatin Ca [Lipitor] 20 mg PO HS 01/10/15 Digoxin [Lanoxin -] 0.125 mg PO DAILY 01/10/15 Finasteride [Proscar] 5 mg PO DAILY 01/10/15 Metoprolol Tartrate [Lopressor -] 25 mg PO HS 01/10/15 Metoprolol Tartrate [Lopressor -] 50 mg PO AM 07/19/15 Warfarin Sodium [Coumadin] 5 mg PO DAILY 01/10/15 Budesonide/Formeterol Fumarate [SYMBICORT 80/4.5mcg -] 2 puff IH BID #1 inhaler 07/19/17 Triamcinolone Acetonide 1 applic TP BID #1 tube 07/19/17 Furosemide [Lasix -] 40 mg PO DAILY 08/14/18 Albuterol Sulfate Inhaler - [Ventolin HFA Inhaler -] 1 puff ACHS PRN 02/29/20 Lisinopril 10 mg PO DAILY 02/29/20 Tamsulosin HCl [Flomax] 0.4 mg PO HS 02/29/20 Review of Systems - Review of Systems HENT: reports: No Symptoms Neck: reports: No Symptoms Cardiovascular: reports: No Symptoms Vital Signs: Vital Signs Temperature 98.1 F 03/01/20 09:54 Pulse Rate 112 H 03/01/20 09:54 Respiratory Rate 18 03/01/20 09:54 Blood Pressure 111/52 L 03/01/20 09:54 O2 Sat by Pulse Oximetry (%) 92 L 03/01/20 09:54 Constitutional: Yes: Well Nourished, No Distress Neck: Yes: Trachea Midline Respiratory: Yes: Regular, CTA Bilaterally Cardiovascular: Yes: Pulse Irregular JVD: No Carotid Bruit: No PMI: Non-Displaced Heart Sounds: Yes: S1, S2 Murmur: No: Systolic Murmur, Diastolic Murmur Edema: Yes Edema: LLE: Trace, RLE: Trace - Other Data Labs, Other Data: CBC, BMP 03/01/20 06:00 03/01/20 06:00 INR, PTT INR 3.67 (0.82-1.09) H 03/01/20 06:00 Troponin, BNP 02/29/20 02/29/20 03/01/20 12:45 13:20 06:00 Troponin I 0.05 0.06 H B-Natriuretic Peptide 5110.6 H Troponin, BNP 02/29/20 02/29/20 03/01/20 12:45 13:20 06:00 Troponin I 0.05 0.06 H B-Natriuretic Peptide 5110.6 H Imaging - Results Chest X-ray: Report Reviewed Problem List - Problems (1) Acute exacerbation of CHF (congestive heart failure) Code(s): I50.9 - HEART FAILURE, UNSPECIFIED (2) Afib Code(s): I48.91 - UNSPECIFIED ATRIAL FIBRILLATION Assessment/Plan 85 M with ischemic heart disease with segmental wall motion abnormality, managed medically. He is admitted with heart failure and cellulitis. No ischemic symptoms or ECG changes. Minimal troponin elevation is likely in the setting of infection and heart failure Symptoms improved with IV diuresis. He has chronic Afib which is rate controlled. 1. CVD: stable disease. continued medical amangement is advised, .Continue ACEI and BB therapy, Statin and antithrombotic therapy. 2. Acute diastolic CHF> Had recent echocardiogram. Do not feel need that he needs another one here. Responded well to diuresis. Continue lasix 40mg IV and consider transitioning to oral therapy in 1-2 days 3. Afib rate controlled Continue dig and metoprolol continue coumadin for INR 2-3 At time of discharge pt should be instructed to see Dr. Broderick, his data processing systems consultant in 2-4 weeks.
[2020-03-01] MEDS ORDERED: VANCOMYCIN 1 GM in D5W (PRE-DOCKED) 1,000 MG/250 ML IVPB SCH (13:00)
[2020-03-01] MEDS: METOPROLOL TARTRATE 25 MG TABLET (FP) PO SCH (21:16)
[2020-03-01] MEDS: ATORVASTATIN CA 20 MG TABLET (FP) PO SCH (21:16)
[2020-03-01] MEDS: NYSTATIN 100,000 UNIT/GM TOPICAL CREAM 15 GM TUBE TP SCH (21:17)
[2020-03-02] MEDS ORDERED: DEXTROSE 5%-WATER - 50 ML IVPB ONE ×3 (00:53→17:01)
[2020-03-02] MEDS ORDERED: PIPERACILLIN/TAZOBACTAM 3.375 GM VIAL IVPB ONE ×3 (00:53→17:01)
[2020-03-02] MEDS: PIPERACILLIN/TAZOB 3.375 GM 3.375 GM in DEXTROSE 5%-WATER - 50 ML IVPB SCH ×5 (01:41→17:41)
[2020-03-02] MEDS ORDERED: PT OWN MED DRAWER 7, Y5N ONE (06:31)
[2020-03-02] MEDS: TAMSULOSIN HCL 0.4 MG CAP PO SCH (08:23)
[2020-03-02 08:24] LABS: BASO % 0.5 % (0-2.0); EOS % 8.5 % (0-4.5); HEMATOCRIT 36.4 % (35.4-49); HEMOGLOBIN 11.9 GM/dl (11.7-16.9); LYMPH % 14.3 % (8-40); MCH 29.5 pg (25.7-33.7); MCHC 32.7 g/dl (32.0-35.9); MEAN CELL VOLUME 90.2 fl (80-96); MEAN PLT VOLUME 7.4 fl (7.5-11.1); MONO % 7.8 % (3.8-10.2); NEUT % 68.9 % (42.8-82.8); PLATELET COUNT 315 K/MM3 (134-434); RBC 4.03 M/mm3 (4.00-5.60); RDW 15.3 % (11.9-15.9); WHITE BLOOD COUNT 10.7 K/mm3 (4.0-10.8)
[2020-03-02 08:29] LABS: INR 2.72 (0.82-1.09); PROTHROMBIN TIME (PATIENT) 29.9 SEC (10.2-13.0)
[2020-03-02 08:33] LABS: ALBUMIN 2.6 g/dl (3.4-5.0); BILIRUBIN,TOTAL 1.7 mg/dl (0.2-1); CREATININE 1.5 mg/dl (0.55-1.3); MAGNESIUM 1.9 mg/dL (1.8-2.4); POTASSIUM 4.5 mmol/L (3.5-5.1); TOT PROT 5.5 g/dl (6.4-8.2)
[2020-03-02 08:46] LABS: CALCIUM 8.2 mg/dl (8.5-10)
[2020-03-02] MEDS: DIGOXIN 0.125 MG TABLET (FP) PO SCH (08:59)
[2020-03-02] MEDS: FINASTERIDE 5 MG TABLET (FP) PO SCH (09:02)
[2020-03-02] MEDS: METOPROLOL TARTRATE 50 MG TABLET (FP) PO SCH (09:02)
[2020-03-02] MEDS: FUROSEMIDE 40 MG TABLET (FP) PO SCH (09:02)
[2020-03-02] MEDS: LISINOPRIL 10 MG TABLET (FP) PO SCH (09:02)
[2020-03-02] MEDS: TRIAMCINOLONE ACET 0.1% CREAM 80 GM TUBE TP SCH ×2 (09:04→21:48)
[2020-03-02] MEDS: BUDESONIDE/FORMETEROL FUMARATE 80/4.5 mcg INHALER IH SCH ×2 (09:04→21:47)
[2020-03-02] MEDS: NYSTATIN 100,000 UNIT/GM TOPICAL CREAM 15 GM TUBE TP SCH ×2 (09:05→21:48)
--- NOTE | 2020-03-02 09:19 | PN ---
Physical Exam: SUBJECTIVE: Patient seen and examined. no acute events overnight. denies any chest pain or shortness of breath. OBJECTIVE: Patient 85 year old male with a significant past medical history of of Afib on Coumadin, COPD,CHF, HTN, HLD, Current Smoker 1/2 PPD and psoriasis. Patient presented to [place] ED for evaluation of LLE swelling/redness. He is currently on Zosyn day #2. covid status: negative as of 02/29/2020 Period Temp Pulse Resp BP Sys/Molina Pulse Ox Last 24 Hr 98 F-98.9 F 67-131 16-24 95-133/52-64 92-100 GENERAL: The patient is awake, alert, and fully oriented, in no acute distress. HEAD: Normal with no signs of trauma. EYES: PERRL, extraocular movements intact, sclera anicteric, conjunctiva clear. No ptosis. ENT: Ears normal, nares patent, oropharynx clear without exudates, moist mucous membranes. NECK: Trachea midline, full range of motion, supple. LUNGS: + BL rhonchi, expiratory wheezes, good chest expansion, no accessory muscle use. HEART: Regular rate and rhythm ABDOMEN: Soft, nontender, nondistended, normoactive bowel sounds, no guarding, no rebound, no hepatosplenomegaly, no masses. EXTREMITIES: 2+ pulses, warm, well-perfused, no edema. NEUROLOGICAL: Cranial nerves II through XII grossly intact. Normal speech, gait not observed. PSYCH: Normal mood, normal affect. SKIN: Generalized dry, flaky, reddened skin, + plaque psoriasis on BL LE, BL UE, trunk and back Laboratory Results - last 24 hr 03/01/20 03/01/20 03/01/20 06:00 06:00 06:00 WBC 10.6 RBC 3.90 L Hgb 11.8 Hct 35.0 L MCV 89.8 MCH 30.2 MCHC 33.6 RDW 14.4 Plt Count 305 MPV 7.4 L Absolute Neuts (auto) 7.1 Neutrophils % 67.6 Lymphocytes % 14.6 D Monocytes % 8.2 Eosinophils % 9.3 H D Basophils % 0.3 PT with INR INR Sodium 137 Potassium 4.5 Chloride 103 Carbon Dioxide 25 Anion Gap 9 BUN 21.0 H Creatinine 1.4 H Est GFR (CKD-EPI)AfAm 53.47 Est GFR (CKD-EPI)NonAf 46.13 Random Glucose 80 Calcium 8.0 L Magnesium Total Bilirubin AST ALT Alkaline Phosphatase Troponin I 0.06 H Total Protein Albumin 03/02/20 03/02/20 03/02/20 07:00 07:00 07:00 WBC 10.7 RBC 4.03 Hgb 11.9 Hct 36.4 MCV 90.2 MCH 29.5 MCHC 32.7 RDW 15.3 Plt Count 315 MPV 7.4 L Absolute Neuts (auto) 7.4 Neutrophils % 68.9 Lymphocytes % 14.3 Monocytes % 7.8 Eosinophils % 8.5 H Basophils % 0.5 PT with INR 29.9 H INR 2.72 H Sodium 140 Potassium 4.5 Chloride 107 Carbon Dioxide 26 Anion Gap 7 L BUN 21.0 H Creatinine 1.5 H Est GFR (CKD-EPI)AfAm 49.19 Est GFR (CKD-EPI)NonAf 42.44 Random Glucose 93 Calcium 8.2 L Magnesium 1.9 Total Bilirubin 1.7 H AST 20 ALT 16 Alkaline Phosphatase 52 D Troponin I Total Protein 5.5 L Albumin 2.6 L Active Medications Generic Name Dose Route Start Last Admin Trade Name Freq PRN Reason Stop Dose Admin Albuterol/Ipratropium 1 amp 03/01/20 09:53 Duoneb - NEB Q6H PRN SHORTNESS OF BREATH Atorvastatin Calcium 20 mg 02/29/20 22:00 03/01/20 21:16 Lipitor - PO 20 mg HS GINA Administration Budesonide/Formoterol Fumarate 2 puff 02/29/20 22:00 03/02/20 09:04 Symbicort 80/4.5mcg - IH 2 puff BID GINA Administration Digoxin 0.125 mg 03/01/20 10:00 03/02/20 08:59 Lanoxin - PO 0.125 mg DAILY GINA Administration Finasteride 5 mg 03/01/20 10:00 03/02/20 09:02 Proscar - PO 5 mg DAILY GINA Administration Furosemide 40 mg 03/01/20 10:00 03/02/20 09:02 Lasix - PO 40 mg DAILY GINA Administration Piperacillin Sod/Tazobactam 50 mls @ 100 mls/hr 03/01/20 18:00 03/02/20 08:23 Sod 3.375 gm/ Dextrose IVPB 100 mls/hr 0200,0800,1800 GINA Administration Protocol Lisinopril 10 mg 03/01/20 10:00 03/02/20 09:02 Prinivil PO 10 mg DAILY GINA Administration Metoprolol Tartrate 25 mg 02/29/20 22:00 03/01/20 21:16 Lopressor - PO 25 mg HS GINA Administration Metoprolol Tartrate 50 mg 03/01/20 10:00 03/02/20 09:02 Lopressor - PO 50 mg DAILY GINA Administration Nystatin 1 applic 03/01/20 22:00 03/02/20 09:05 Mycostatin Cream - TP 1 applic BID GINA Administration Tamsulosin HCl 0.4 mg 03/01/20 08:30 03/02/20 08:23 Flomax - PO 0.4 mg DAILY@0830 GINA Administration Triamcinolone Acetonide 1 applic 02/29/20 22:00 03/02/20 09:04 Triamcinolone Acetonide TP 1 applic BID GINA Administration ASSESSMENT/PLAN: Problem List - Problems (1) Cellulitis Assessment/Plan: WBC normal this morning Left leg hot, dry, erythematous L>R Continue Zosyn, day #2 seen by ID Blood cultures negative Code(s): L03.90 - CELLULITIS, UNSPECIFIED (2) COPD (chronic obstructive pulmonary disease) Assessment/Plan: Chest Xray negative Continue Symbicort Inhaler Duonebs q6h PRN patient is covid negative Code(s): J44.9 - CHRONIC OBSTRUCTIVE PULMONARY DISEASE, UNSPECIFIED (3) Dehydration Assessment/Plan: s/p IV Fluids Fluids stopped d/t congestion Cr 1.5 - continue to monitor Encourage oral fluid intake Code(s): E86.0 - DEHYDRATION (4) Psoriasis Assessment/Plan: Continue Triamcinolone cream sees threshing machine operator outpt Code(s): L40.9 - PSORIASIS, UNSPECIFIED (5) Afib Assessment/Plan: continue metoprolol and digoxin on coumadin based on INR. takes 5mg daily at home. will give coumadin 2.5mg today (half dose) Cardiology consulted and following. notes reviewed and appreciated Continue cardiac monitoring Code(s): I48.91 - UNSPECIFIED ATRIAL FIBRILLATION (6) CHF (congestive heart failure) Assessment/Plan: + congestion BL on physical exam IV Fluids discontinued Continue lasix Code(s): I50.9 - HEART FAILURE, UNSPECIFIED (7) Current smoker Assessment/Plan: Switchboard Receptionist on smoking cessation Code(s): F17.200 - NICOTINE DEPENDENCE, UNSPECIFIED, UNCOMPLICATED (8) HLD (hyperlipidemia) Assessment/Plan: Continue Lipitor Code(s): E78.5 - HYPERLIPIDEMIA, UNSPECIFIED (9) HTN (hypertension) Assessment/Plan: Normotensive today Continue metoprolol and lisinopril Code(s): I10 - ESSENTIAL (PRIMARY) HYPERTENSION (10) BPH (benign prostatic hyperplasia) Assessment/Plan: Continue Flomax Code(s): N40.0 - BENIGN PROSTATIC HYPERPLASIA WITHOUT LOWER URINRY TRACT SYMP (11) DVT prophylaxis Assessment/Plan: INR 2.7 today, was 3.7 yesterday. will give coumadin 2.5mg which is half of his normal dose Re-check INR tomorrow Code(s): [id number] - Visit type - Emergency Visit Emergency Visit: Yes ED Registration Date: 02/29/20 Care time: The patient presented to the Emergency Department on the above date and was hospitalized for further evaluation of their emergent condition. - New Patient This patient is new to me today: No - Critical Care Critical Care patient: No - Discharge Referral Referred to [id number] Med P.C.: No - Medication Review Med list reviewed for High Risk Meds patients 65 and older: Yes
[2020-03-02] MEDS ORDERED: ACETAMINOPHEN 325 MG TABLET (FP) PO PRN (14:50)
[2020-03-02] MEDS ORDERED: WARFARIN NA 2.5 MG TABLET PO ONE (18:00)
[2020-03-02] MEDS: ATORVASTATIN CA 20 MG TABLET (FP) PO SCH (21:47)
[2020-03-03] MEDS ORDERED: PIPERACILLIN/TAZOBACTAM 3.375 GM VIAL IVPB ONE ×3 (00:52→17:45)
[2020-03-03] MEDS ORDERED: DEXTROSE 5%-WATER - 50 ML IVPB ONE ×3 (00:52→17:46)
[2020-03-03] MEDS: PIPERACILLIN/TAZOB 3.375 GM 3.375 GM in DEXTROSE 5%-WATER - 50 ML IVPB SCH ×3 (00:59→17:51)
[2020-03-03 08:31] LABS: BASO % 0.7 % (0-2.0); EOS % 8.9 % (0-4.5); HEMATOCRIT 37.7 % (35.4-49); HEMOGLOBIN 11.9 GM/dl (11.7-16.9); LYMPH % 10.1 % (8-40); MCH 28.7 pg (25.7-33.7); MCHC 31.5 g/dl (32.0-35.9); MEAN PLT VOLUME 7.4 fl (7.5-11.1); MONO % 7.8 % (3.8-10.2); NEUT % 72.5 % (42.8-82.8); PLATELET COUNT 312 K/MM3 (134-434); RBC 4.14 M/mm3 (4.00-5.60); RDW 15.2 % (11.9-15.9); WHITE BLOOD COUNT 11.6 K/mm3 (4.0-10.8)
[2020-03-03 08:37] LABS: ALBUMIN 2.6 g/dl (3.4-5.0); BILIRUBIN,TOTAL 1.6 mg/dl (0.2-1); CREATININE 1.4 mg/dl (0.55-1.3); POTASSIUM 4.3 mmol/L (3.5-5.1); TOT PROT 5.7 g/dl (6.4-8.2)
[2020-03-03] MEDS: TAMSULOSIN HCL 0.4 MG CAP PO SCH (08:40)
[2020-03-03 08:46] LABS: INR 2.14 (0.82-1.09); PROTHROMBIN TIME (PATIENT) 23.6 SEC (10.2-13.0)
[2020-03-03] MEDS: TRIAMCINOLONE ACET 0.1% CREAM 80 GM TUBE TP SCH ×2 (09:02→21:15)
[2020-03-03] MEDS: DIGOXIN 0.125 MG TABLET (FP) PO SCH (09:10)
--- NOTE | 2020-03-03 09:16 | PN ---
Progress Note, Physician History of Present Illness: pt was seen and examined this am in nad. no overnight events. no new complaints. states his leg pain is better today. - Current Medication List Current Medications: Active Medications Acetaminophen (Tylenol -) 650 mg PO Q6H PRN PRN Reason: PAIN LEVEL 6-10 Albuterol/Ipratropium (Duoneb -) 1 amp NEB Q6H PRN PRN Reason: SHORTNESS OF BREATH Atorvastatin Calcium (Lipitor -) 20 mg PO HS [facility] Last Admin: 03/02/20 21:47 Dose: 20 mg Documented by: Budesonide/Formoterol Fumarate (Symbicort 80/4.5mcg -) 2 puff IH BID [facility] Last Admin: 03/02/20 21:47 Dose: 2 puff Documented by: Digoxin (Lanoxin -) 0.125 mg PO DAILY [facility] Last Admin: 03/02/20 08:59 Dose: 0.125 mg Documented by: Finasteride (Proscar -) 5 mg PO DAILY [facility] Last Admin: 03/02/20 09:02 Dose: 5 mg Documented by: Furosemide (Lasix -) 40 mg PO DAILY [facility] Last Admin: 03/02/20 09:02 Dose: 40 mg Documented by: Piperacillin Sod/Tazobactam (Sod 3.375 gm/ Dextrose) 50 mls @ 100 mls/hr IVPB 0200,0800,1800 [facility]; Protocol Last Admin: 03/03/20 00:59 Dose: 100 mls/hr Documented by: Lisinopril (Prinivil) 10 mg PO DAILY [facility] Last Admin: 03/02/20 09:02 Dose: 10 mg Documented by: Metoprolol Tartrate (Lopressor -) 50 mg PO DAILY [facility] Last Admin: 03/02/20 09:02 Dose: 50 mg Documented by: Nystatin (Mycostatin Cream -) 1 applic TP BID [facility] Last Admin: 03/02/20 21:48 Dose: 1 applic Documented by: Tamsulosin HCl (Flomax -) 0.4 mg PO DAILY@0830 [facility] Last Admin: 03/02/20 08:23 Dose: 0.4 mg Documented by: Triamcinolone Acetonide (Triamcinolone Acetonide) 1 applic TP BID [facility] Last Admin: 03/02/20 21:48 Dose: 1 applic Documented by: - Objective Vital Signs: Vital Signs Temperature 97.6 F 09/09/20 06:00 Pulse Rate 102 H 03/03/20 06:00 Respiratory Rate 16 03/03/20 06:00 Blood Pressure 101/67 03/03/20 06:00 O2 Sat by Pulse Oximetry (%) 99 03/03/20 06:00 Constitutional: Yes: No Distress, Calm Eyes: Yes: Conjunctiva Clear, EOM Intact HENT: Yes: Atraumatic, Normocephalic Neck: Yes: Supple, Trachea Midline Cardiovascular: Yes: Pulse Irregular, S1, S2. No: Regular Rate and Rhythm, Bradycardia, Tachycardia, Bruit, JVD, Gallop, Murmur, Rub, S3, S4, Varicosities Respiratory: Yes: Regular, CTA Bilaterally. No: Rales, Rhonchi, SOB, Wheezes Gastrointestinal: Yes: Normal Bowel Sounds, Soft. No: Distention, Tenderness Musculoskeletal: Yes: WNL Extremities: Yes: WNL Edema: No Peripheral Pulses WNL: Yes Integumentary: Yes: Erythema, Other (diffuse skin flaking) Neurological: Yes: Alert, Oriented Psychiatric: Yes: Alert, Oriented Labs: CBC, BMP 03/03/20 06:52 03/03/20 06:52 INR, PTT INR 2.14 (0.82-1.09) H 03/03/20 06:52 - ....Imaging Chest X-ray: Report Reviewed, Image Reviewed EKG: Report Reviewed, Image Reviewed Other: Report Reviewed, Image Reviewed (tele-Afib, HR mildly above goal, short insignificant pauses) Assessment/Plan 85 M with ischemic heart disease with segmental wall motion abnormality, managed medically. He is admitted with heart failure and cellulitis. No ischemic symptoms or ECG changes. Minimal troponin elevation is likely in the setting of infection and heart failure Symptoms improved with IV diuresis. He has chronic Afib which is rate controlled. 1. CVD: stable disease. continued medical amangement is advised, .Continue ACEI and BB therapy, Statin and antithrombotic therapy. 2. Acute diastolic CHF> Had recent echocardiogram. Do not feel need that he needs another one here. Responded well to diuresis. Continue po Lasix 3. 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 Please call with any questions.
[2020-03-03] MEDS: FUROSEMIDE 40 MG TABLET (FP) PO SCH (09:25)
--- NOTE | 2020-03-03 09:41 | PN ---
Physical Exam: SUBJECTIVE: Patient seen and examined at bedside. Patient states his psoriasis flare is one of the worst he's had. Has not been treated for several years. OBJECTIVE: Vital Signs Period Temp Pulse Resp BP Sys/Molina Pulse Ox Last 24 Hr 97.6 F-99.0 F 94-103 16-20 101-121/57-67 92-99 GENERAL: The patient is awake, alert, and fully oriented, in no acute distress. HEAD: Normal with no signs of trauma. EYES: PERRL, extraocular movements intact, sclera anicteric, conjunctiva clear. No ptosis. ENT: Scattered plaques on both ears LUNGS: Breath sounds equal, clear to auscultation bilaterally, no wheezes, no crackles, no accessory muscle use. HEART: Regular rate and rhythm, S1, S2 ABDOMEN: Soft, nontender, nondistended SKIN: sparing only the head, full body involvement of extensive plaquing EXTREMITIES: 2+ pulses, warm, well-perfused, no edema observed, some erythema NEUROLOGICAL: Cranial nerves II through XII grossly intact. Normal speech, gait not observed. Laboratory Results - last 24 hr 03/03/20 03/03/20 03/03/20 06:52 06:52 06:52 WBC 11.6 H RBC 4.14 Hgb 11.9 Hct 37.7 MCV 91.0 MCH 28.7 MCHC 31.5 L RDW 15.2 Plt Count 312 MPV 7.4 L Absolute Neuts (auto) 8.4 Neutrophils % 72.5 Lymphocytes % 10.1 D Monocytes % 7.8 Eosinophils % 8.9 H Basophils % 0.7 PT with INR 23.6 H INR 2.14 H Sodium 138 Potassium 4.3 Chloride 105 Carbon Dioxide 27 Anion Gap 6 L BUN 21.0 H Creatinine 1.4 H Est GFR (CKD-EPI)AfAm 53.47 Est GFR (CKD-EPI)NonAf 46.13 Random Glucose 104 Calcium 8.0 L Magnesium 2.0 Total Bilirubin 1.6 H AST 21 ALT 16 Alkaline Phosphatase 53 Total Protein 5.7 L Albumin 2.6 L Active Medications Generic Name Dose Route Start Last Admin Trade Name Freq PRN Reason Stop Dose Admin Acetaminophen 650 mg 03/02/20 14:50 Tylenol - PO Q6H PRN PAIN LEVEL 6-10 Albuterol/Ipratropium 1 amp 03/01/20 09:53 Duoneb - NEB Q6H PRN SHORTNESS OF BREATH Atorvastatin Calcium 20 mg 02/29/20 22:00 03/02/20 21:47 Lipitor - PO 20 mg HS [facility] Administration Budesonide/Formoterol Fumarate 2 puff 02/29/20 22:00 03/02/20 21:47 Symbicort 80/4.5mcg - IH 2 puff BID [facility] Administration Digoxin 0.125 mg 03/01/20 10:00 03/02/20 08:59 Lanoxin - PO 0.125 mg DAILY [facility] Administration Finasteride 5 mg 03/01/20 10:00 03/02/20 09:02 Proscar - PO 5 mg DAILY [facility] Administration Furosemide 40 mg 03/01/20 10:00 03/02/20 09:02 Lasix - PO 40 mg DAILY [facility] Administration Piperacillin Sod/Tazobactam 50 mls @ 100 mls/hr 03/01/20 18:00 03/03/20 00:59 Sod 3.375 gm/ Dextrose IVPB 100 mls/hr 0200,0800,1800 [facility] Administration Protocol Lisinopril 10 mg 03/01/20 10:00 03/02/20 09:02 Prinivil PO 10 mg DAILY [facility] Administration Metoprolol Tartrate 50 mg 03/01/20 10:00 03/02/20 09:02 Lopressor - PO 50 mg DAILY [facility] Administration Nystatin 1 applic 03/01/20 22:00 03/02/20 21:48 Mycostatin Cream - TP 1 applic BID [facility] Administration Tamsulosin HCl 0.4 mg 03/01/20 08:30 03/02/20 08:23 Flomax - PO 0.4 mg DAILY@0830 [facility] Administration Triamcinolone Acetonide 1 applic 02/29/20 22:00 03/02/20 21:48 Triamcinolone Acetonide TP 1 applic BID [facility] Administration PCP: Dr. Shellie Leon ASSESSMENT/PLAN: 85 year-old male with a PMH significant for HTN, HLD, CAD, diastolic heart failure, afib on coumadin, COPD and current every day smoker, psoriasis, BPH and recent lower GI bleed. Admitted for LLE cellulitis and CHF exacerbation. Severe psoriasis flare. Acute on chronic diastolic heart failure --symptoms improved with IV diuresis --continue Lasix PO 40mg daily --cardiology following --outpatient followup with Dr. Broderick in 2-4 weeks Coronary artery disease --no ischemic symptoms or ECG changes --minimal troponin elevation is likely in the setting of infection and heart failure --continue ACEI and BB therapy, Statin and antithrombotic therapy. Atrial fibrillation --rate controlled, continue digoxin and metoprolol --INR 2.14 today, resume warfarin 5mg daily LLE cellulitis --mild leukocytosis, continue to trend --afebrile --continue Zosyn ((day #3) --ID following Psoriasis --full body involvement, extensive plaquing, peeling, severely cracked skin on feet --became frustrated with dermatologists ("saw 7") who were unable to control, has not seen any health care provider for this condition in several years; on no meds --rheumatology consult placed --discuss with Wound Care Hypertension --BP well-controlled --continue lisinopril, metoprolol Hyperlipidemia --continue Lipitor COPD --continue Symbicort, duonebs PRN BPH --continue finasteride, tamsulosin Lower GI bleed --history of melena in November 2019 and evaluated by GI Dr. Draper --colonoscopy revealed bleeding/cancerous polyp which was removed, reportedly not metastatic disease; no chemo or radiation --h/h stable, continue to monitor FEN Fluids: PO intake adequate Electrolytes: replete as indicated Nutrition: low sodium DVT prophylaxis: on coumadin, INR therapeutic Physical therapy Dispo: continues to require inpatient care. Full code. Visit type - Emergency Visit Emergency Visit: Yes ED Registration Date: 02/29/20 Care time: The patient presented to the Emergency Department on the above date and was hospitalized for further evaluation of their emergent condition. - New Patient This patient is new to me today: Yes Date on this admission: 03/04/20 - Critical Care Critical Care patient: No - Medication Review Med list reviewed for High Risk Meds patients 65 and older: Yes
[2020-03-03] MEDS: BUDESONIDE/FORMETEROL FUMARATE 80/4.5 mcg INHALER IH SCH ×2 (10:02→21:14)
[2020-03-03] MEDS: METOPROLOL TARTRATE 50 MG TABLET (FP) PO SCH (10:10)
[2020-03-03] MEDS: LISINOPRIL 10 MG TABLET (FP) PO SCH (10:15)
[2020-03-03] MEDS: NYSTATIN 100,000 UNIT/GM TOPICAL CREAM 15 GM TUBE TP SCH ×2 (10:20→21:15)
[2020-03-03] MEDS: FINASTERIDE 5 MG TABLET (FP) PO SCH (10:30)
--- NOTE | 2020-03-03 13:31 | EKG ---
Test Reason : Blood Pressure : / mmHG Vent. Rate : 084 BPM Atrial Rate : 098 BPM P-R Int : 208 ms QRS Dur : 138 ms QT Int : 352 ms P-R-T Axes : 000 -75 090 degrees QTc Int : 415 ms SINUS RHYTHM WITH MARKED SINUS ARRHYTHMIA LEFT AXIS DEVIATION RIGHT BUNDLE BRANCH BLOCK ABNORMAL ECG Confirmed by MD ABHIJEET, ALEXA ([id number]) on 03/03/2020 1:31:32 PM Referred By: ALPESH SMITH Confirmed By:ALEXA JHA MD
[2020-03-03] MEDS ORDERED: WARFARIN NA 5 MG TABLET PO SCH (18:00)
[2020-03-03] MEDS ORDERED: LOCK ITEM NR ONE (19:25)
[2020-03-03] MEDS: ATORVASTATIN CA 20 MG TABLET (FP) PO SCH (21:14)
[2020-03-03] MEDS ORDERED: METOPROLOL TARTRATE 25 MG TABLET (FP) PO SCH (22:00)
[2020-03-04] MEDS ORDERED: DEXTROSE 5%-WATER - 50 ML IVPB ONE ×2 (01:01→08:20)
[2020-03-04] MEDS ORDERED: PIPERACILLIN/TAZOBACTAM 3.375 GM VIAL IVPB ONE ×2 (01:01→08:20)
[2020-03-04] MEDS: PIPERACILLIN/TAZOB 3.375 GM 3.375 GM in DEXTROSE 5%-WATER - 50 ML IVPB SCH ×2 (02:09→08:49)
[2020-03-04] MEDS ORDERED: LOCK ITEM NR ONE (07:16)
[2020-03-04 07:45] LABS: BASO % 0.4 % (0-2.0); EOS % 11.3 % (0-4.5); HEMATOCRIT 35.7 % (35.4-49); HEMOGLOBIN 11.4 GM/dl (11.7-16.9); LYMPH % 13.4 % (8-40); MCH 28.8 pg (25.7-33.7); MCHC 31.8 g/dl (32.0-35.9); MEAN CELL VOLUME 90.6 fl (80-96); MEAN PLT VOLUME 7.1 fl (7.5-11.1); MONO % 8.8 % (3.8-10.2); NEUT % 66.1 % (42.8-82.8); PLATELET COUNT 328 K/MM3 (134-434); RBC 3.94 M/mm3 (4.00-5.60); RDW 15.2 % (11.9-15.9); WHITE BLOOD COUNT 11.1 K/mm3 (4.0-10.8)
[2020-03-04 08:14] LABS: ALBUMIN 2.5 g/dl (3.4-5.0); BILIRUBIN,TOTAL 1.4 mg/dl (0.2-1); CALCIUM 7.6 mg/dl (8.5-10); CREATININE 1.3 mg/dl (0.55-1.3); MAGNESIUM 1.9 mg/dL (1.8-2.4); TOT PROT 5.3 g/dl (6.4-8.2)
[2020-03-04 08:17] LABS: INR 2.56 (0.82-1.09); PROTHROMBIN TIME (PATIENT) 28.1 SEC (10.2-13.0)
[2020-03-04] MEDS: TAMSULOSIN HCL 0.4 MG CAP PO SCH (08:49)
[2020-03-04] MEDS ORDERED: PT OWN MED DRAWER 7, Y5N ONE ×3 (09:02→11:47)
[2020-03-04] MEDS: DIGOXIN 0.125 MG TABLET (FP) PO SCH (09:19)
[2020-03-04] MEDS: NYSTATIN 100,000 UNIT/GM TOPICAL CREAM 15 GM TUBE TP SCH (09:20)
[2020-03-04] MEDS: FINASTERIDE 5 MG TABLET (FP) PO SCH (09:20)
[2020-03-04] MEDS: BUDESONIDE/FORMETEROL FUMARATE 80/4.5 mcg INHALER IH SCH (09:20)
[2020-03-04] MEDS: FUROSEMIDE 40 MG TABLET (FP) PO SCH (09:21)
[2020-03-04 09:24] VITALS: BP 103/54; PULSE 104; TEMP 98.2
[2020-03-04] MEDS: TRIAMCINOLONE ACET 0.1% CREAM 80 GM TUBE TP SCH (10:00)
[2020-03-04] MEDS: LISINOPRIL 10 MG TABLET (FP) PO SCH (11:00)
[2020-03-04] MEDS: METOPROLOL TARTRATE 50 MG TABLET (FP) PO SCH (11:00)
--- NOTE | 2020-03-04 11:25 | DS ---
Physical Exam: SUBJECTIVE: Patient seen and examined OBJECTIVE: Vital Signs Period Temp Pulse Resp BP Sys/Molina Pulse Ox Last 24 Hr 97.7 F-98.4 F 93-104 18-19 94-111/49-67 0-98 PHYSICAL EXAM GENERAL: The patient is awake, alert, and fully oriented, in no acute distress. HEAD: Normal with no signs of trauma. EYES: PERRL, sclera anicteric, conjunctiva clear. ENT: nares patent, oropharynx clear without exudates, moist mucous membranes. NECK: Trachea midline, full range of motion, supple. LUNGS: Breath sounds equal, clear to auscultation bilaterally, no wheezes, no crackles, no accessory muscle use. HEART: irregular rate and rhythm, S1, S2 without murmur ABDOMEN: Soft, nontender, nondistended, normoactive bowel sounds, no guarding, no rebound, no hepatosplenomegaly, no masses. EXTREMITIES: 1+ pulses DP, warm, trace/+1 edema b/l LEs, + hyperpigmentation. surfaces between toes moist/erythematic NEUROLOGICAL: Normal speech, slow unsteady gait. PSYCH: Normal mood, normal affect. SKIN: Warm, dry, +extensive scaly lesions noted to entire body sparring head/face. + scattered areas of excoriations to extremities. LABS Laboratory Results - last 24 hr 03/04/20 03/04/20 03/04/20 06:54 06:54 06:59 WBC 11.1 H RBC 3.94 L Hgb 11.4 L Hct 35.7 MCV 90.6 MCH 28.8 MCHC 31.8 L RDW 15.2 Plt Count 328 MPV 7.1 L Absolute Neuts (auto) 7.3 Neutrophils % 66.1 Lymphocytes % 13.4 D Monocytes % 8.8 Eosinophils % 11.3 H Basophils % 0.4 PT with INR 28.1 H INR 2.56 H Sodium 138 Potassium 4.0 Chloride 106 Carbon Dioxide 26 Anion Gap 6 L BUN 20.0 H Creatinine 1.3 Est GFR (CKD-EPI)AfAm 58.48 Est GFR (CKD-EPI)NonAf 50.46 Random Glucose 90 Calcium 7.6 L Magnesium 1.9 Total Bilirubin 1.4 H AST 17 ALT 15 Alkaline Phosphatase 52 Total Protein 5.3 L Albumin 2.5 L HOSPITAL COURSE: Date of Admission:02/29/20 Date of Discharge: 03/04/20 Minutes to complete discharge: 40 Discharge Summary Problems reviewed: Yes Reason For Visit: EDEMA OF LOWER EXTREMITY/CELLULITIS/CHRONIC OBSTRU Current Active Problems BPH (benign prostatic hyperplasia) (Acute) COPD (chronic obstructive pulmonary disease) (Acute) Cellulitis (Acute) Dehydration (Acute) Psoriasis (Acute) Procedures: Principal: CXR 02/29/2020. Since prior chest x-ray dated 04/24/2019, the cardiac silhouette remains slightly enlarged. There. are mild bilateral is interstitial lung markings. Mediastinum and visualized osseous structures. appear intact. Persistent minimal blunting of the right lateral costophrenic angle likely pleural. thickening. No pneumothorax is identified. Impression: No significant interval change or acute lung disease is present. Reported By: Yaneli Messer MD 02/29/20 1416 Other Procedures: Bilateral leg color Doppler and duplex venous ultrasound 02/29/2020. Grayscale, pulsed Doppler and color Doppler interrogation of both lower extremities deep venous. system was performed. The common femoral vein, femoral vein and popliteal vein were identified, bilaterally with a normal phasic wave form, adequate compressibility and adequate response to augmentation. Normal flow and. compression of the right posterior tibial vein. Left posterior tibial vein was not seen. Visualized portion of the greater saphenous and deep femoral vein are patent. No Moran's cyst is identified in the popliteal fossa, bilaterally. There is bilateral leg edema. Impression: Nonvisualization of the left posterior tibial vein that may be due to surrounding left calf edema. Otherwise, there is no evidence of deep venous thromboses in either lower extremity. Reported By: Yaneli Messer MD 02/29/20 4622 Hospital Course: 85yo male with a PMH of Afib on Coumadin, COPD,CHF, HTN, HLD, Current Smoker 1/2PPD and Psoriasis, who presents for evaluation of LLE swelling/ redness. Pt states his psoriasis worsened about a month ago. Pt states he has been treated with several treatment modalities for psoriasis without improvement, so now he is not treating with any meds expect the cream. Pt states his feet and legs have swollen b/l over the last few weeks, but worsened over the last few days,left leg > Rt. Pt states he has been doubling up on his Lasix at home secondary to the leg swelling without improvement in leg swelling. Pt also reports ANGULO for few days, denies NINO, dizziness, cp, cough, fever, chills, abdominal pain, N/V/D or urinary symptoms. Reports hx of melena in November 2019 and evaluated by GI Dr[address] Draper, underwent colonoscopy which revealed bleeding / cancerous polyp which was removed, reportedly not metastatic disease. No need for chemo or radiation. In ER low BP, s/p 250 cc NS x1 ER course was notable for (1)CxR: No acute lung pathology (2)wbc 11.3,Bun 25, cre 1.3, trop ).05, BNP 5110 (3)EKG: A- Fib (4) dosed vanco 1G in ED. Hospital course was unremarkable. Mr. Burk received Zosyn IVSS from 02/28 - 03/04. digoxin level slightly subtherapeutic at 0.75ng/ml (range 0.8-2.0) INR therapeutic WBC stable ranges from 10.6 to 11.6 On 03/04/2020 Zosyn converted to Augmentin. Pt deemed stable for discharge home. Health Concerns: Psoriasis Appointment made with mail censor Dr. Artemio Vu due to resistant psoriasis March 09 2020 Time: 12noon Address: [address] [place] [address] [address], [place] [address] Plan of Treatment: Augmentin 875mg twice daily for 5 more days mycostatin cream twice daily between toes x 10days Please self schedule follow up appointment with the following providers Primary care: Dr. Chong Cartography Supervisor: Dr. Carlos Eduardo Broderick Gastroenterolgy: Dr. Laura Draper Condition: Improved - Instructions Diet, Activity, Other Instructions: The following can help decrease your risk of getting cellulitis again: Avoid injuring your skin. Skin injuries include cuts, scrapes, guthrie, sunburns, frostbite, stings from bees and other insects, and abrasions. Being careful when youre doing any activity, including working out, gardening, or cooking can help avoid an injury. Treat wounds right away. If you injure your skin, immediately: Wash the wound with soap and water. Apply an antibiotic ointment. Cover the wound with a bandage. Clean and change the bandage every day (or as often as your doctor recommends) until the wound heals. Keep your skin clean and moisturized. Keeping your skin clean washes away bacteria that cause cellulitis. Moisturizing helps prevent cracks in your skin, which can let bacteria into your body. An effective way to prevent or reduce dry skin is to apply moisturizer within three minutes of taking showers or baths. If your hands are dry, applying moisturizer after you wash your hands and frequently throughout the day can relieve the dryness. Keep your nails well-manicured. You could accidentally scratch yourself with a broken nail. When cutting your fingernails and toenails, you want to take care not to injure the surrounding skin. If you had cellulitis in an arm, have blood drawn from the arm that has not had cellulitis. Be sure to ask the person drawing the blood to take it from a part of your body that has not had cellulitis. Treat infections promptly. An infection like athletes foot or impetigo can lead to cellulitis, so you want to treat it as soon as you notice signs. Dry, itchy skin between your toes can mean athletes foot. Sores, red and swollen skin, or blisters can be a sign of an infection. Treat other medical conditions. Having another medical condition can increase your risk of getting cellulitis again. Working with your doctor to manage cond itions like diabetes, eczema, leg ulcers, or periphery artery disease (PAD) can greatly reduce your cellulitis risk. Treat lymphedema (excessive fluid buildup that causes swelling, usually in an arm or leg). Of all the medical conditions that increase your risk of getting cellulitis again, lymphedema ranks highest. While there is no cure for lymphedema, it can be treated with exercise, compression bandages, elevation, and drainage. Lose weight. Research shows that if you are overweight or obese and lose weight, you reduce your risk of getting cellulitis again. Stop smoking. While more research is needed to know whether smoking increases your risk of getting cellulitis again, research suggests it might. If you drink alcohol, drink in moderation. More research is also needed to know whether alcohol increases your risk of getting cellulitis again. Current research suggests that heavy drinking increases the risk. Drinking in moderation means that women have no more than one drink a day and men two. Check your feet every day to see if you have an injury or infection. Some people fail to notice when they injure a foot. Repeat flares of cellulitis can be reduced with daily antibiotics If you continue to get cellulitis after doing what you can to reduce your risk, research shows that taking a low-dose antibiotic can help. This treatment may be recommended for someone who has had cellulitis three or four times in one year. If you continue to get cellulitis while on an antibiotic, its possible that wh ats looks like cellulitis may actually be another skin condition. Seeing a senior property manager can help you find out whether you have cellulitis or another condition. Referrals: Shellie Leon [Primary Care Provider] - Disposition: HOME - Home Medications Comprehensive Discharge Medication List: Ambulatory Orders Atorvastatin Ca [Lipitor] 20 mg PO HS 01/10/15 Digoxin [Lanoxin -] 0.125 mg PO DAILY 01/10/15 Finasteride [Proscar] 5 mg PO DAILY 01/10/15 Metoprolol Tartrate [Lopressor -] 25 mg PO HS 01/10/15 Metoprolol Tartrate [Lopressor -] 50 mg PO AM 01/10/15 Warfarin Sodium [Coumadin] 5 mg PO DAILY 01/10/15 Budesonide/Formeterol Fumarate [SYMBICORT 80/4.5mcg -] 2 puff IH BID #1 inhaler 07/19/17 Triamcinolone Acetonide 1 applic TP BID #1 tube 07/19/17 Furosemide [Lasix -] 40 mg PO DAILY 08/14/18 Albuterol Sulfate Inhaler - [Ventolin HFA Inhaler -] 1 puff ACHS PRN 02/29/20 Lisinopril 10 mg PO DAILY 02/29/20 Tamsulosin HCl [Flomax] 0.4 mg PO HS 02/29/20 Acetaminophen [Tylenol .Regular Strength -] 650 mg PO Q6H PRN tablet 03/04/20 Amoxicillin/Potassium Clav [Augmentin 875-125 Tablet] 1 each PO BID 5 Days #10 tablet 03/04/20 Finasteride [Proscar -] 5 mg PO DAILY tablet 03/04/20 Metoprolol Tartrate [Lopressor -] 25 mg PO HS tablet 03/04/20 Nystatin Cream [Mycostatin Cream -] 1 applic TP BID applic 03/04/20 Triamcinolone Acetonide 1 applic TP BID tube 03/04/20 Prescription Drug Monitoring Program (I-STOP) results: I-STOP not reviewed Problem List - Problems (1) Cellulitis Code(s): L03.90 - CELLULITIS, UNSPECIFIED (2) Afib Code(s): I48.91 - UNSPECIFIED ATRIAL FIBRILLATION (3) CHF (congestive heart failure) Code(s): I50.9 - HEART FAILURE, UNSPECIFIED This patient is new to me today: Yes Date on this admission: 03/04/20 Emergency Visit: Yes ED Registration Date: 02/29/20 Care time: The patient presented to the Emergency Department on the above date and was hospitalized for further evaluation of their emergent condition. Critical Care patient: No - Discharge Referral Referred to [facility] No
--- NOTE | 2020-03-04 11:33 | PN ---
Progress Note, Physician - Current Medication List Current Medications: Active Medications Acetaminophen (Tylenol -) 650 mg PO Q6H PRN PRN Reason: PAIN LEVEL 6-10 Albuterol/Ipratropium (Duoneb -) 1 amp NEB Q6H PRN PRN Reason: SHORTNESS OF BREATH Atorvastatin Calcium (Lipitor -) 20 mg PO [facility] Last Admin: 03/03/20 21:14 Dose: 20 mg Documented by: Budesonide/Formoterol Fumarate (Symbicort 80/4.5mcg -) 2 puff IH BID [facility] Last Admin: 03/04/20 09:20 Dose: 2 puff Documented by: Digoxin (Lanoxin -) 0.125 mg PO DAILY [facility] Last Admin: 03/04/20 09:19 Dose: 0.125 mg Documented by: Finasteride (Proscar -) 5 mg PO DAILY [facility] Last Admin: 03/04/20 09:20 Dose: 5 mg Documented by: Furosemide (Lasix -) 40 mg PO DAILY [facility] Last Admin: 03/04/20 09:21 Dose: 40 mg Documented by: Piperacillin Sod/Tazobactam (Sod 3.375 gm/ Dextrose) 50 mls @ 100 mls/hr IVPB 0200,0800,1800 [facility]; Protocol Last Admin: 03/04/20 08:49 Dose: 100 mls/hr Documented by: Lisinopril (Prinivil) 10 mg PO DAILY [facility] Last Admin: 03/03/20 10:15 Dose: 10 mg Documented by: Metoprolol Tartrate (Lopressor -) 50 mg PO DAILY [facility] Last Admin: 03/03/20 10:10 Dose: 50 mg Documented by: Metoprolol Tartrate (Lopressor -) 25 mg PO [facility] Last Admin: 03/03/20 21:16 Dose: Not Given Documented by: Nystatin (Mycostatin Cream -) 1 applic TP BID [facility] Last Admin: 03/04/20 09:20 Dose: 1 applic Documented by: Tamsulosin HCl (Flomax -) 0.4 mg PO DAILY@0830 [facility] Last Admin: 03/04/20 08:49 Dose: 0.4 mg Documented by: Triamcinolone Acetonide (Triamcinolone Acetonide) 1 applic TP BID [facility] Last Admin: 03/04/20 10:00 Dose: 1 applic Documented by: Warfarin Sodium (Coumadin -) 5 mg PO DAILY@1800 [facility] Last Admin: 03/03/20 17:50 Dose: 5 mg Documented by: - Objective Vital Signs: Vital Signs Temperature 98.2 F 03/04/20 09:22 Pulse Rate 104 H 03/04/20 09:22 Respiratory Rate 18 03/04/20 09:22 Blood Pressure 103/54 L 03/04/20 09:22 O2 Sat by Pulse Oximetry (%) 0 L 03/04/20 09:22 Labs: CBC, BMP 03/04/20 06:59 03/04/20 06:54 INR, PTT INR 2.56 (0.82-1.09) H 03/04/20 06:54
== END 2020-03-04 13:18 | disposition home or self-care (01) | DRG 602 ==
LOC: FER 12:57 → FM/S 14:06
PROVIDERS: ADMIT Internal Medicine; ATTEND Nurse Practitioner Family
DX: L03.116 Cellulitis of left lower limb (principal); I50.33 Acute on chronic diastolic (congestive) heart failure; I48.20 Chronic atrial fibrillation, unspecified; L03.115 Cellulitis of right lower limb; I11.0 Hypertensive heart disease with heart failure; J44.9 Chronic obstructive pulmonary disease, unspecified; I25.10 Atherosclerotic heart disease of native coronary artery without angina pectoris; D72.829 Elevated white blood cell count, unspecified; F17.200 Nicotine dependence, unspecified, uncomplicated; E78.5 Hyperlipidemia, unspecified; L40.9 Psoriasis, unspecified; E86.0 Dehydration; L40.0 Psoriasis vulgaris; N40.0 Benign prostatic hyperplasia without lower urinary tract symptoms; R73.03 Prediabetes; Z79.01 Long term (current) use of anticoagulants
CPT/HCPCS: 36415; 71046-TC-FY; 80048; 80053; 80162; 81003; 81015; 82550; 82803; 83735; 83880; 84484; 85025; 85610; 85730; 87040; 93005; 93970-TC; 97116-GP; 97162-GP; 99285-25; U0003

== ENCOUNTER 2020-03-23 10:16 | Inpatient (IN) | payer OTHER ==
--- NOTE | 2020-03-23 10:20 | PDOC ---
History of Present Illness - General Chief Complaint: Shortness of Breath Stated Complaint: sob,leg swelling Time Seen by Provider: 03/23/20 10:19 - History of Present Illness Initial Comments: 03/23/20 10:20 85 year old man with a PMH of Afib on Coumadin, COPD, CHF, HTN, HLD, Current Smoker 1/2PPD, severe psoriasis who prsents with 2 weeks of worsening swelling of the legs bilaterally into the thighs and some shortness of breath that is not relieved with his home albuterol. He denies chest pain, nausea, diaphoresis, abdominal pain, dysuria, hematuria, consipation, current diarrhea or any other complaints. ROS GENERAL/CONSTITUTIONAL: No fever or chills. No weakness. HEAD, EYES, EARS, NOSE AND THROAT: No change in vision. No ear pain or discharge. No sore throat. CARDIOVASCULAR: No chest pain, + shortness of breath RESPIRATORY: No cough, wheezing, or hemoptysis. GASTROINTESTINAL: No nausea, vomiting, diarrhea or constipation. GENITOURINARY: No dysuria, frequency, or change in urination. MUSCULOSKELETAL: No joint or muscle swelling or pain. No neck or back pain. SKIN: No rash NEUROLOGIC: No headache, vertigo, loss of consciousness, or change in strength/sensation. ENDOCRINE: No increased thirst. No abnormal weight change HEMATOLOGIC/LYMPHATIC: No anemia, easy bleeding, or history of blood clots. ALLERGIC/IMMUNOLOGIC: No hives or skin allergy. PE GENERAL: Awake, alert, and fully oriented, in no acute distress HEAD: No signs of trauma, normocephalic, atraumatic EYES: EOMI, sclera anicteric, conjunctiva clear ENT:oropharynx clear without exudates. Moist mucosa NECK: Normal ROM, supple LUNGS: + decreased breath sounds bilaterally HEART: Regular rate and rhythm, normal S1 and S2, no murmurs, rubs or gallops, peripheral pulses normal and equal bilaterally. ABDOMEN: Soft, nontender, No guarding, no rebound. No masses EXTREMITIES : 3+ pitting edema up to the thighs NEUROLOGICAL: Cranial nerves II through XII grossly intact. Normal speech, no focal sensorimotor deficits SKIN: + significant psoriasis over torso, back and extremities Assessment and Plan 85 year old man with a PMH of Afib on Coumadin, COPD, CHF, HTN, HLD, Current Smoker 1/2PPD, severe psoriasis who prsents with 2 weeks of worsening swelling of the legs bilaterally into the thighs and some shortness of breath that is not relieved with his home albuterol. Consider CHF exacerbation, r/o acs Patient reports compliance with meds will dose 40 lasix IV EKG: afib rate of 108bpm, T wave inversions in V5 and V6 changed from 03/02/20 CXR with R sided pleural effusion and infiltrate dose vanc zosyn and azithro labs with supratherapeutic INR to 4 trop negative bnp pending Makenna Contreras, PGY3 Emergency Medicine Past History - Medical History Allergies/Adverse Reactions: Allergies Allergy/AdvReac Type Severity Reaction Status Date / Time No Known Allergies Allergy Verified 03/23/20 11:16 Home Medications: Ambulatory Orders Atorvastatin Ca [Lipitor] 20 mg PO HS 01/10/15 Digoxin [Lanoxin -] 0.125 mg PO DAILY 01/10/15 Finasteride [Proscar] 5 mg PO DAILY 01/10/15 Metoprolol Tartrate [Lopressor -] 50 mg PO AM 01/10/15 Warfarin Sodium [Coumadin] 5 mg PO DAILY 01/10/15 Budesonide/Formeterol Fumarate [SYMBICORT 80/4.5mcg -] 2 puff IH BID #1 inhaler 07/19/17 Furosemide [Lasix -] 40 mg PO DAILY 08/14/18 Albuterol Sulfate Inhaler - [Ventolin HFA Inhaler -] 1 puff ACHS PRN 02/29/20 Lisinopril 10 mg PO DAILY 02/29/20 Tamsulosin HCl [Flomax] 0.4 mg PO HS 02/29/20 Acetaminophen [Tylenol .Regular Strength -] 650 mg PO Q6H PRN tablet 03/04/20 Metoprolol Tartrate [Lopressor -] 25 mg PO HS tablet 03/04/20 Cardiac Disorders: Yes (AFIB) COPD: Yes CHF: Yes Disorders: Yes (URINARY RETENTION) HTN: Yes Hypercholesterolemia: Yes - Surgical History Cholecystectomy: Yes - Immunization History Immunization Up to Date: Yes - Psycho-Social/Smoking History Smoking History: Current every day smoker Have you smoked in the past 12 months: Yes Number of Cigarettes Smoked Daily: 4 If you are a former smoker, when did you quit?: 6 MONTHS AGO 'Breaking Loose' booklet given: 02/29/20 ED Treatment Course - LABORATORY CBC & Chemistry Diagram: 03/23/20 10:30 03/23/20 10:30 - RADIOLOGY Radiology Studies Ordered: Category Date Time Status CHEST X-RAY PORTABLE* [RAD] Stat Radiology 03/23/20 10:18 Ordered Discharge - Discharge Information Problems reviewed: Yes Clinical Impression/Diagnosis: Pneumonia, CHF exacerbation - Follow up/Referral - Patient Discharge Instructions - Post Discharge Activity
[2020-03-23] MEDS ORDERED: FUROSEMIDE 40 MG/4 ML INJECTABLE VIAL IVPUSH ONE ×2 (10:29→14:49)
--- OUTSIDE RECORDS SUMMARY | 2020-03-23 10:29 | XMS ---
:1935 Author Organization [facility] Support Name Relationship Address Phone RE, RETIRED Unavailable Unavailable Unavailable RE Unavailable Unavailable Unavailable UBALDO HUYNH DAUGHTER [address] [facility] [place] [address] UBALDO HUYNH Child [address] [facility] [place] [address] Re-disclosure Warning The records that you are about to access may contain information from federally- assisted alcohol or drug abuse programs. If such information is present, then the following federally mandated warning applies: This information has been disclosed to you from records protected by federal confidentiality rules (42 CFR part 2). The federal rules prohibit you from making any further disclosure of this information unless further disclosure is expressly permitted by the written consent of the person to whom it pertains or as otherwise permitted by 42 CFR part 2. A general authorization for the release of medical or other information is NOT sufficient for this purpose. The Federal rules restrict any use of the information to criminally investigate or prosecute any alcohol or drug abuse patient.The records that you are about to access may contain highly sensitive health information, the redisclosure of which is protected by Article 27-F of the [facility] Public Health law. If you continue you may haveaccess to information: Regarding HIV / AIDS; Provided by facilities licensed or operated by the [facility] Office of Mental Health; or Provided by the [facility] Office for People With Developmental Disabilities. If such information is present, then the following [facility] mandated warning applies: This information has been disclosed to you from confidential records which are protected by state law. State law prohibits you from making any further disclosure of this information without the specific written consent of the person to whom it pertains, or as otherwise permitted by law. Any unauthorized further disclosure in violation of state law may result in a fine or shelter sentence or both. A general authorization for the release of medical or other information is NOT sufficient authorization for further disclosure. Insurance Providers Payer name Policy type Policy ID Covered Covered alliance party's Policy P christopher / Coverage alliance party ID relationship to [employer] ormation type lópez JAIMIE MEDICARE [id number] SP [id number] HIP MEDICARE [id number] SP [id number] VIP 1 JAIMIE MEDICARE [id number] SP [id number] JAIMIE MEDICARE [id number] SP [id number] HIP MEDICARE [id number] SP [id number] VIP 1 Results ID Date Data Source [id number] 02/29/2020 02:40:00 PM EDT [facility] Name Value Range Interpretation Description Data Sup porting Code Source(s) Document(s ) SARS [facility] coronavirus 2 RNA This lab was ordered by DARI STATON and reported by [facility]. ID Date Data Source [id number] 12/08/2019 12:00:00 AM EDT [facility] Name Value Range Interpretation Code Description Data Jami rce(s) Supporting Document(s ) SARS-COV-2 [facility] QL RICARDO+PROBE This lab was ordered by MANUEL NUÑEZ MD and reported by [facility]. Procedure
--- NOTE | 2020-03-23 10:34 | PDOC ---
Attending Attestation - Resident Resident Name: Albertalma deliaMakenna - ED Attending Attestation I have performed the following: I have examined & evaluated the patient, The case was reviewed & discussed with the resident, I agree w/resident's findings & plan, Exceptions are as noted - HPI HPI: 85 yo M history afib on coumadin, COPD, CHF, HTN, HL, 1PPD smoker, severe psoriasis presents with 2 week history of peripheral edema, now with SOB. He was taking albuterol at home, without significant relief. Denies cp, N/V, sweating, cough, fever. Denies any recent dietary indiscretions, recent medication changes. - Physicial Exam PE: GENERAL: Awake, alert, and fully oriented, in no acute distress HEAD: No signs of trauma EYES: PERRLA, EOMI, sclera anicteric, conjunctiva clear ENT: Auricles normal inspection, hearing grossly normal, nares patent, oropharynx clear without exudates. Moist mucosa NECK: Normal ROM, supple, no lymphadenopathy, JVD, or masses LUNGS: Distant breath sounds. Dec air entry B/L, +scattered exp wheezes HEART: Regular rate and rhythm, normal S1 and S2, no murmurs, rubs or gallops ABDOMEN: Soft, nontender, normoactive bowel sounds. No guarding, no rebound. No masses EXTREMITIES: Normal range of motion, 3+ pitting edema to knees B/L. No clubbing or cyanosis. No cords, erythema, or tenderness NEUROLOGICAL: Cranial nerves II through XII grossly intact. Normal speech, normal gait. Motor and sensation intact SKIN: Warm, dry, normal turgor. Diffuse psoriatic rash with erythematous patches and scaling. - Medical Decision Making Pt with suspected CHF exacerbation based on lack of improvement with albuterol, as well as with the swelling to his legs. Will give lasix IV in the ED. CXR shows infiltrate vs congestion, and patient is high risk for pna based on history of COPD and recent admission. Will cover with abx. Discharge - Discharge Information Problems reviewed: Yes Clinical Impression/Diagnosis: CHF (congestive heart failure) Qualifiers: Heart failure type: unspecified Heart failure chronicity: acute on chronic Qualified Code(s): I50.9 - Heart failure, unspecified Pneumonia Qualifiers: Pneumonia type: due to unspecified organism Laterality: right Lung location: lower lobe of lung Qualified Code(s): J18.9 - Pneumonia, unspecified organism - Follow up/Referral - Patient Discharge Instructions - Post Discharge Activity
[2020-03-23 11:20] LABS: BASO % 0.5 % (0-2.0); EOS % 3.4 % (0-4.5); HEMATOCRIT 36.5 % (35.4-49); HEMOGLOBIN 11.5 GM/dl (11.7-16.9); LYMPH % 12.3 % (8-40); MCHC 31.6 g/dl (32.0-35.9); MEAN CELL VOLUME 91.6 fl (80-96); MEAN PLT VOLUME 7.3 fl (7.5-11.1); MONO % 8.6 % (3.8-10.2); NEUT % 75.2 % (42.8-82.8); PLATELET COUNT 258 K/MM3 (134-434); RBC 3.98 M/mm3 (4.00-5.60); RDW 15.5 % (11.9-15.9); WHITE BLOOD COUNT 8.9 K/mm3 (4.0-10.8)
[2020-03-23] MEDS ORDERED: VANCOMYCIN 1,000 MG in DEXTROSE 5%-WATER - 250 ML IVPB ONE (11:21)
[2020-03-23] MEDS ORDERED: AZITHROMYCIN IVPB 500 MG in DEXTROSE 5%-WATER - 250 ML IVPB ONE (11:21)
[2020-03-23] MEDS ORDERED: PIPERACILLIN/TAZOB 3.375 GM 3.375 GM in DEXTROSE 5%-WATER - 50 ML IVPB ONE (11:21)
[2020-03-23 11:24] LABS: ACTIVATED PTT 39.3 SECONDS (25.2-36.5)
[2020-03-23 11:25] LABS: ALBUMIN 2.9 g/dl (3.4-5.0); BILIRUBIN,TOTAL 1.5 mg/dl (0.2-1); CALCIUM 7.9 mg/dl (8.5-10); CREATININE 1.5 mg/dl (0.55-1.3); POTASSIUM 4.5 mmol/L (3.5-5.1); TOT PROT 5.9 g/dl (6.4-8.2)
[2020-03-23 11:28] LABS: PROTHROMBIN TIME (PATIENT) 44.9 SEC (10.2-13.0)
[2020-03-23 11:36] LABS: INR 4.12 (0.82-1.09)
[2020-03-23 12:01] LABS: N-TERMINAL BNP 14626.4 pg/ml (5-450)
[2020-03-23] MEDS ORDERED: AZITHROMYCIN 500 MG VIAL IVPB ONE (12:16)
[2020-03-23] MEDS ORDERED: PIPERACILLIN/TAZOBACTAM 3.375 GM VIAL IVPB ONE (12:17)
[2020-03-23 12:38] LABS: EPITHELIAL CELLS RARE /hpf
--- NOTE | 2020-03-23 12:56 | EKG ---
Test Reason : Blood Pressure : / mmHG Vent. Rate : 108 BPM Atrial Rate : 066 BPM P-R Int : 000 ms QRS Dur : 140 ms QT Int : 378 ms P-R-T Axes : 000 -70 102 degrees QTc Int : 506 ms ATRIAL FIBRILLATION WITH RAPID VENTRICULAR RESPONSE WITH PREMATURE VENTRICULAR OR ABERRANTLY CONDUCTED COMPLEXES LEFT AXIS DEVIATION RIGHT BUNDLE BRANCH BLOCK T WAVE ABNORMALITY, CONSIDER ANTEROLATERAL ISCHEMIA ABNORMAL ECG WHEN COMPARED WITH ECG OF 02-MAR-2020 12:19, ATRIAL FIBRILLATION HAS REPLACED SINUS RHYTHM Confirmed by MD TOPHER, EULA ([id number]) on 03/23/2020 12:56:21 PM Referred By: ANALI COPPOLA Confirmed By:EULA OBANDO MD
[2020-03-23 13:28] VITALS: BMI 29.2
--- NOTE | 2020-03-23 14:23 | HP ---
CHIEF COMPLAINT: Shortness of breath PCP: Dr. Shellie Leon HISTORY OF PRESENT ILLNESS: 85 year-old male with a PMH significant for HTN, HLD, CAD, diastolic heart failure, afib on coumadin, COPD and current every day smoker, severe psoriasis, BPH, lower GI bleed (11/2019), and recent admission for LLE cellulitis and CHF exacerbation (02/28-03/04/2020). Patient presented to the ED with a complaint of worsening swelling of his legs x 2 weeks to the point where he can no longer walk. The swelling extends up to his thighs. He has also been experiencing shortness of breath. He admits to not limiting his salt intake. He denies fever, sweats, chills, and cough. He denies chest pain, nausea, diaphoresis, abdominal pain, dysuria, hematuria, consipation, current diarrhea or any other complaints. ER course was notable for: (1) BNP 14,626 (<--5110 on 02/29/20) (2) INR 4.12 Recent Travel: No PAST MEDICAL HISTORY: Hypertension Hyperlipidemia Coronary artery disease Diastolic heart failure Atrial fibrillation COPD Severe psoriasis BPH Lower GI bleed PAST SURGICAL HISTORY: Cholecystectomy Hernia sx - Rt inguinal in 1994 Social History: lives with daughter Smoking: current, every day Alcohol: no Drugs: no Family History Father , HTN, CVA , at age 80's Brother of [place] at age 38 Allergies No Known Allergies Allergy (Verified 03/23/20 11:16) HOME MEDICATIONS: Home Medications Medication Instructions Recorded Atorvastatin Ca [Lipitor] 20 mg PO HS 01/10/15 Digoxin [Lanoxin -] 0.125 mg PO DAILY 01/10/15 Finasteride [Proscar] 5 mg PO DAILY 01/10/15 Metoprolol Tartrate [Lopressor -] 50 mg PO AM 01/10/15 Warfarin Sodium [Coumadin] 5 mg PO DAILY 01/10/15 Budesonide/Formeterol Fumarate 2 puff IH BID #1 inhaler 07/19/17 [SYMBICORT 80/4.5mcg -] Furosemide [Lasix -] 40 mg PO DAILY 08/14/18 Albuterol Sulfate Inhaler - 1 puff ACHS PRN 02/29/20 [Ventolin HFA Inhaler -] Lisinopril 10 mg PO DAILY 02/29/20 Tamsulosin HCl [Flomax] 0.4 mg PO HS 02/29/20 Acetaminophen [Tylenol .Regular 650 mg PO Q6H PRN tablet 03/04/20 Strength -] Metoprolol Tartrate [Lopressor -] 25 mg PO HS tablet 03/04/20 Triamcinolone 0.1% Cream 1 applic TP BID 03/23/20 [Aristocort] REVIEW OF SYSTEMS CONSTITUTIONAL: Absent: fever, chills, diaphoresis, generalized weakness, malaise, loss of appetite, weight change HEENT: Absent: rhinorrhea, nasal congestion, throat pain, throat swelling, difficulty swallowing, mouth swelling, ear pain, eye pain, visual changes CARDIOVASCULAR: +bilateral lower extremity edema Absent: chest pain, syncope, palpitations, irregular heart rate, lightheadedness, peripheral edema RESPIRATORY: +Shortness of breath, ANGULO Absent: cough, orthopnea, wheezing, stridor, hemoptysis GASTROINTESTINAL: Absent: abdominal pain, abdominal distension, nausea, vomiting, diarrhea, constipation, melena, hematochezia GENITOURINARY: Absent: dysuria, frequency, urgency, hesitancy, hematuria, flank pain, genital pain MUSCULOSKELETAL: Absent: myalgia, arthralgia, joint swelling, back pain, neck pain SKIN: Absent: rash, itching, pallor HEMATOLOGIC/IMMUNOLOGIC: Absent: easy bleeding, easy bruising, lymphadenopathy, frequent infections ENDOCRINE: Absent: unexplained weight gain, unexplained weight loss, heat intolerance, cold intolerance NEUROLOGIC: Absent: headache, focal weakness or paresthesias, dizziness, unsteady gait, seizure, mental status changes, bladder or bowel incontinence PSYCHIATRIC: Absent: anxiety, depression, suicidal or homicidal ideation, hallucinations. PHYSICAL EXAMINATION Vital Signs - 24 hr 03/23/20 03/23/20 03/23/20 10:17 10:45 10:51 Temperature 98.6 F Pulse Rate 74 Respiratory 18 Rate Blood Pressure 114/66 Blood Pressure [Left Arm] O2 Sat by Pulse 99 100 100 Oximetry (%) 03/23/20 03/23/20 12:00 13:03 Temperature 97.8 F Pulse Rate 88 Respiratory 18 Rate Blood Pressure 94/62 Blood Pressure 118/62 [Left Arm] O2 Sat by Pulse 97 Oximetry (%) GENERAL: The patient is awake, alert, and fully oriented, in no acute distress. HEAD: Normal with no signs of trauma. EYES: PERRL, extraocular movements intact, sclera anicteric, conjunctiva clear. No ptosis. LUNGS: Inspiratory and expiratory wheezing, poor air movement HEART: Regular rate and rhythm, S1, S2 ABDOMEN: Edematous SKIN: Extensive plaquing on arms, chest, back, legs, feet, underlying skin deeply erythematous EXTREMITIES: 2+ pulses, tense 3+ pitting edema bilaterally NEUROLOGICAL: Cranial nerves II through XII grossly intact. Normal speech, gait not observed. Laboratory Results - last 24 hr 03/23/20 03/23/20 03/23/20 10:30 10:30 10:30 WBC 8.9 RBC 3.98 L Hgb 11.5 L Hct 36.5 MCV 91.6 MCH 29.0 MCHC 31.6 L RDW 15.5 Plt Count 258 D MPV 7.3 L Absolute Neuts (auto) 6.7 Neutrophils % 75.2 Lymphocytes % 12.3 Monocytes % 8.6 Eosinophils % 3.4 Basophils % 0.5 PT with INR 44.9 H INR 4.12 H* PTT (Actin FS) 39.3 H Sodium 136 Potassium 4.5 Chloride 105 Carbon Dioxide 26 Anion Gap 5 L BUN 26.0 H Creatinine 1.5 H Est GFR (CKD-EPI)AfAm 49.19 Est GFR (CKD-EPI)NonAf 42.44 Random Glucose 98 Calcium 7.9 L Total Bilirubin 1.5 H AST 24 ALT 27 Alkaline Phosphatase 60 Troponin I B-Natriuretic Peptide 97386.4 H Total Protein 5.9 L Albumin 2.9 L Urine Color Urine Appearance Urine pH Urine Protein Urine Glucose (UA) Urine Ketones Urine Blood Urine Nitrite Urine Bilirubin Urine Urobilinogen Ur Leukocyte Esterase Urine RBC Ur Transition Epith Cell 03/23/20 03/23/20 10:30 12:10 WBC RBC Hgb Hct MCV MCH MCHC RDW Plt Count MPV Absolute Neuts (auto) Neutrophils % Lymphocytes % Monocytes % Eosinophils % Basophils % PT with INR INR PTT (Actin FS) Sodium Potassium Chloride Carbon Dioxide Anion Gap BUN Creatinine Est GFR (CKD-EPI)AfAm Est GFR (CKD-EPI)NonAf Random Glucose Calcium Total Bilirubin AST ALT Alkaline Phosphatase Troponin I 0.04 B-Natriuretic Peptide Total Protein Albumin Urine Color Yellow Urine Appearance Clear Urine pH 5.0 Urine Protein Negative Urine Glucose (UA) Negative Urine Ketones Negative Urine Blood Trace-intact Urine Nitrite Negative Urine Bilirubin Negative Urine Urobilinogen 0.2 Ur Leukocyte Esterase Negative Urine RBC 0-2 Ur Transition Epith Cell Rare ASSESSMENT/PLAN: 85 year-old male with a PMH significant for HTN, HLD, CAD, diastolic heart failure, afib on coumadin, COPD and current every day smoker, psoriasis, BPH and recent lower GI bleed. Admitted for LLE cellulitis and CHF exacerbation. Severe psoriasis flare. Acute on chronic diastolic heart failure --BNP>14,000; edema extends from feet to abdomen; weight up 17.2kg since 03/04 --CXR: new right pleural effusion, fluid in horizontal fissure, new congestive changes --Lasix IVP 40mg BID --cardiology consult placed --last echo 07/2018, get repeat study --continue digoxin, lisinopril, metoprolol --check dig level Coronary artery disease --troponin neg x 1, two pending --continue lisinopril, metorpolol, Lipitor Atrial fibrillation --rate controlled, continue digoxin and metoprolol --INR 4.12, hold coumadin r/o pneumonia --possible infiltrate on CXR but afebrile, no leukocytosis --given h/o COPD, active smoker, and this is third hospitalization in four months, will continue empiric antibiotic coverage --ceftriaxone, doxycycline for atypicals Psoriasis --full body involvement, extensive plaquing, peeling, severely cracked skin on feet --no sign of infection --triamcinolone cream BID to affected areas which is home regimen Hypertension --BP well-controlled --continue lisinopril, metoprolol Hyperlipidemia --continue Lipitor COPD --continue Symbicort, albuterol inhalers BPH --continue finasteride, tamsulosin Lower GI bleed --history of melena in November 2019 --colonoscopy revealed bleeding/cancerous polyp which was removed, reportedly not metastatic disease; no chemo or radiation --h/h stable, continue to monitor FEN Fluids: PO intake adequate Electrolytes: replete as indicated Nutrition: low sodium DVT prophylaxis: hold coumadin, INR supratherapeutic, check daily Physical therapy Dispo: continues to require inpatient care. Full code. Family Medical History Family History: As Documented Family Hx Respiratory Disorders: Daughter Visit type - Medication Review Med list reviewed for High Risk Meds patients 65 and older: Yes - Emergency Visit Emergency Visit: Yes ED Registration Date: 03/23/20 Care time: The patient presented to the Emergency Department on the above date and was hospitalized for further evaluation of their emergent condition. - New Patient This patient is new to me today: Yes Date on this admission: 03/23/20 - Critical Care Critical Care patient: No
[2020-03-23] MEDS ORDERED: ALBUTEROL SO4 HFA INHALER IH PRN (14:46)
[2020-03-23] MEDS: DOXYCYCLINE HYCLATE 100 MG CAPSULE PO SCH (17:01)
[2020-03-23] MEDS ORDERED: PT OWN MED DRAWER 7, Y5N ONE (21:10)
[2020-03-23] MEDS: ATORVASTATIN CA 20 MG TABLET (FP) PO SCH (21:16)
[2020-03-23] MEDS: TAMSULOSIN HCL 0.4 MG CAP PO SCH (21:16)
[2020-03-23] MEDS: METOPROLOL TARTRATE 25 MG TABLET (FP) PO SCH (21:16)
[2020-03-23] MEDS: BUDESONIDE/FORMETEROL FUMARATE 80/4.5 mcg INHALER IH SCH (21:17)
[2020-03-23] MEDS: TRIAMCINOLONE ACET 0.1% CREAM 15 GM TUBE TP SCH (21:17)
[2020-03-24] MEDS: METOPROLOL TARTRATE 50 MG TABLET (FP) PO SCH (06:36)
[2020-03-24] MEDS: FUROSEMIDE 40 MG/4 ML INJECTABLE VIAL IVPUSH SCH ×2 (06:36→13:30)
[2020-03-24 08:47] LABS: ALBUMIN 2.8 g/dl (3.4-5.0); BILIRUBIN,TOTAL 1.8 mg/dl (0.2-1); CALCIUM 8.3 mg/dl (8.5-10); CREATININE 1.3 mg/dl (0.55-1.3); MAGNESIUM 1.8 mg/dL (1.8-2.4); POTASSIUM 5.1 mmol/L (3.5-5.1); TOT PROT 5.6 g/dl (6.4-8.2)
[2020-03-24 08:53] LABS: BASO % 0.4 % (0-2.0); EOS % 3.6 % (0-4.5); HEMATOCRIT 35.9 % (35.4-49); HEMOGLOBIN 11.5 GM/dl (11.7-16.9); LYMPH % 18.2 % (8-40); MCH 29.4 pg (25.7-33.7); MEAN CELL VOLUME 91.7 fl (80-96); MEAN PLT VOLUME 7.1 fl (7.5-11.1); MONO % 7.9 % (3.8-10.2); NEUT % 69.9 % (42.8-82.8); PLATELET COUNT 270 K/MM3 (134-434); RBC 3.91 M/mm3 (4.00-5.60); RDW 15.4 % (11.9-15.9); WHITE BLOOD COUNT 8.4 K/mm3 (4.0-10.8)
[2020-03-24 08:59] LABS: ACTIVATED PTT 38.1 SECONDS (25.2-36.5)
[2020-03-24 09:04] LABS: INR 3.51 (0.82-1.09); PROTHROMBIN TIME (PATIENT) 38.4 SEC (10.2-13.0)
[2020-03-24] MEDS ORDERED: cefTRIAXone SODIUM 1 GM VIAL ONE (09:43)
[2020-03-24] MEDS ORDERED: DEXTROSE 5%-WATER - 50 ML IVPB ONE (09:43)
[2020-03-24] MEDS: LISINOPRIL 10 MG TABLET PO SCH (10:02)
[2020-03-24] MEDS: DOXYCYCLINE HYCLATE 100 MG CAPSULE PO SCH ×2 (10:03→17:28)
[2020-03-24] MEDS: CEFTRIAXONE 1 GM in DEXTROSE 5%-WATER - 50 ML IVPB SCH (10:03)
[2020-03-24] MEDS: DIGOXIN 0.125 MG TABLET (FP) PO SCH (10:03)
[2020-03-24] MEDS: FINASTERIDE 5 MG TABLET (FP) PO SCH (10:03)
[2020-03-24] MEDS: BUDESONIDE/FORMETEROL FUMARATE 80/4.5 mcg INHALER IH SCH ×2 (10:04→21:42)
[2020-03-24] MEDS: TRIAMCINOLONE ACET 0.1% CREAM 15 GM TUBE TP SCH ×2 (10:05→21:42)
--- NOTE | 2020-03-24 10:38 | PN ---
Physical Exam: SUBJECTIVE: Patient seen and examined at bedside. Voices no complaints. Feels swelling in legs is much better. OBJECTIVE: Vital Signs Period Temp Pulse Resp BP Sys/Molina Pulse Ox Last 24 Hr 97.8 F-98.9 F 77-95 16-18 94-137/55-68 96-100 GENERAL: The patient is awake, alert, and fully oriented, in no acute distress. HEAD: Normal with no signs of trauma. EYES: PERRL, extraocular movements intact, sclera anicteric, conjunctiva clear. No ptosis. LUNGS: Inspiratory and expiratory wheezing, poor air movement HEART: Regular rate and rhythm, S1, S2 ABDOMEN: Edematous SKIN: Extensive plaquing on arms, chest, back, legs, feet, underlying skin deeply erythematous LOWER EXTREMITIES: edema signifiantly improved, skin puckered not tense NEUROLOGICAL: Cranial nerves II through XII grossly intact. Normal speech, gait not observed. Laboratory Results - last 24 hr 03/23/20 03/23/20 03/23/20 10:30 10:30 10:30 WBC 8.9 RBC 3.98 L Hgb 11.5 L Hct 36.5 MCV 91.6 MCH 29.0 MCHC 31.6 L RDW 15.5 Plt Count 258 D MPV 7.3 L Absolute Neuts (auto) 6.7 Neutrophils % 75.2 Lymphocytes % 12.3 Monocytes % 8.6 Eosinophils % 3.4 Basophils % 0.5 PT with INR 44.9 H INR 4.12 H* PTT (Actin FS) 39.3 H Sodium 136 Potassium 4.5 Chloride 105 Carbon Dioxide 26 Anion Gap 5 L BUN 26.0 H Creatinine 1.5 H Est GFR (CKD-EPI)AfAm 49.19 Est GFR (CKD-EPI)NonAf 42.44 Random Glucose 98 Calcium 7.9 L Magnesium Total Bilirubin 1.5 H AST 24 ALT 27 Alkaline Phosphatase 60 Troponin I B-Natriuretic Peptide 43790.4 H Total Protein 5.9 L Albumin 2.9 L Urine Color Urine Appearance Urine pH Urine Protein Urine Glucose (UA) Urine Ketones Urine Blood Urine Nitrite Urine Bilirubin Urine Urobilinogen Ur Leukocyte Esterase Urine RBC Ur Transition Epith Cell 03/23/20 03/23/20 03/23/20 10:30 12:10 17:00 WBC RBC Hgb Hct MCV MCH MCHC RDW Plt Count MPV Absolute Neuts (auto) Neutrophils % Lymphocytes % Monocytes % Eosinophils % Basophils % PT with INR INR PTT (Actin FS) Sodium Potassium Chloride Carbon Dioxide Anion Gap BUN Creatinine Est GFR (CKD-EPI)AfAm Est GFR (CKD-EPI)NonAf Random Glucose Calcium Magnesium Total Bilirubin AST ALT Alkaline Phosphatase Troponin I 0.04 0.06 H B-Natriuretic Peptide Total Protein Albumin Urine Color Yellow Urine Appearance Clear Urine pH 5.0 Urine Protein Negative Urine Glucose (UA) Negative Urine Ketones Negative Urine Blood Trace-intact Urine Nitrite Negative Urine Bilirubin Negative Urine Urobilinogen 0.2 Ur Leukocyte Esterase Negative Urine RBC 0-2 Ur Transition Epith Cell Rare 03/23/20 03/24/20 03/24/20 23:00 06:00 06:00 WBC 8.4 RBC 3.91 L Hgb 11.5 L Hct 35.9 MCV 91.7 MCH 29.4 MCHC 32.0 RDW 15.4 Plt Count 270 MPV 7.1 L Absolute Neuts (auto) 5.9 Neutrophils % 69.9 Lymphocytes % 18.2 D Monocytes % 7.9 Eosinophils % 3.6 Basophils % 0.4 PT with INR 38.4 H INR 3.51 H PTT (Actin FS) 38.1 H Sodium Potassium Chloride Carbon Dioxide Anion Gap BUN Creatinine Est GFR (CKD-EPI)AfAm Est GFR (CKD-EPI)NonAf Random Glucose Calcium Magnesium Total Bilirubin AST ALT Alkaline Phosphatase Troponin I 0.04 B-Natriuretic Peptide Total Protein Albumin Urine Color Urine Appearance Urine pH Urine Protein Urine Glucose (UA) Urine Ketones Urine Blood Urine Nitrite Urine Bilirubin Urine Urobilinogen Ur Leukocyte Esterase Urine RBC Ur Transition Epith Cell 03/24/20 06:00 WBC RBC Hgb Hct MCV MCH MCHC RDW Plt Count MPV Absolute Neuts (auto) Neutrophils % Lymphocytes % Monocytes % Eosinophils % Basophils % PT with INR INR PTT (Actin FS) Sodium 141 Potassium 5.1 Chloride 105 Carbon Dioxide 27 Anion Gap 9 BUN 24.0 H Creatinine 1.3 Est GFR (CKD-EPI)AfAm 58.48 Est GFR (CKD-EPI)NonAf 50.46 Random Glucose 83 Calcium 8.3 L Magnesium 1.8 Total Bilirubin 1.8 H AST 21 ALT 24 Alkaline Phosphatase 57 Troponin I B-Natriuretic Peptide Total Protein 5.6 L Albumin 2.8 L Urine Color Urine Appearance Urine pH Urine Protein Urine Glucose (UA) Urine Ketones Urine Blood Urine Nitrite Urine Bilirubin Urine Urobilinogen Ur Leukocyte Esterase Urine RBC Ur Transition Epith Cell Active Medications Generic Name Dose Route Start Last Admin Trade Name Freq PRN Reason Stop Dose Admin Albuterol Sulfate 1 puff 03/23/20 14:46 03/23/20 17:11 Ventolin Hfa Inhaler - IH 1 puff ACHS PRN Administration Dyspnea Atorvastatin Calcium 20 mg 03/23/20 22:00 03/23/20 21:16 Lipitor - PO 20 mg HS GINA Administration Budesonide/Formoterol Fumarate 2 puff 03/23/20 22:00 03/24/20 10:04 Symbicort 80/4.5mcg - IH 2 puff BID GINA Administration Digoxin 0.125 mg 03/24/20 10:00 03/24/20 10:03 Lanoxin - PO 0.125 mg DAILY GINA Administration Doxycycline Hyclate 100 mg 03/23/20 18:00 03/24/20 10:03 Vibramycin - PO 100 mg BID@1000,1800 GINA Administration Finasteride 5 mg 03/24/20 10:00 03/24/20 10:03 Proscar - PO 5 mg DAILY GINA Administration Furosemide 40 mg 03/24/20 06:00 03/24/20 06:36 Lasix Injection - IVPUSH 40 mg BID@0600,1400 GINA Administration Ceftriaxone Sodium 1 gm/ 50 mls @ 200 mls/hr 03/24/20 10:00 03/24/20 10:03 Dextrose IVPB 200 mls/hr DAILY GINA Administration Protocol Lisinopril 10 mg 03/24/20 10:00 03/24/20 10:02 Prinivil PO 10 mg DAILY GINA Administration Metoprolol Tartrate 25 mg 03/23/20 22:00 03/23/20 21:16 Lopressor - PO 25 mg HS GINA Administration Metoprolol Tartrate 50 mg 03/24/20 07:00 03/24/20 06:36 Lopressor - PO 50 mg AM GINA Administration Tamsulosin HCl 0.4 mg 03/23/20 22:00 03/23/20 21:16 Flomax - PO 0.4 mg HS GINA Administration Triamcinolone Acetonide 1 applic 03/23/20 22:00 03/24/20 10:05 Aristocort 0.1% Cream - TP 1 applic BID GINA Administration ASSESSMENT/PLAN: 85 year-old male with a PMH significant for HTN, HLD, CAD, diastolic heart failure, afib on coumadin, COPD and current every day smoker, severe psoriasis, BPH, lower GI bleed (11/2019), and recent admission for LLE cellulitis and CHF exacerbation (02/28-03/04/2020). Admitted for CHF exacerbation Acute on chronic diastolic heart failure --BNP>14,000; edema extends from feet to abdomen but markedly improved today after diuresis --03/23 CXR: new right pleural effusion, fluid in horizontal fissure, new congestive changes --continue Lasix IVP 40mg BID --cardiology consult pending --last echo 07/2018, repeat study today --continue digoxin, lisinopril, metoprolol --dig level pending --repeat CXR tomorrow Coronary artery disease --troponin neg x 3 --continue lisinopril, metoprolol, Lipitor Atrial fibrillation --rate controlled, continue digoxin and metoprolol --INR 3.51, continue to hold coumadin r/o pneumonia --possible infiltrate on CXR but afebrile, no leukocytosis --given h/o COPD, active smoker, and this is third hospitalization in four months, will continue empiric antibiotic coverage --ceftriaxone (day #2), doxycycline for atypicals (day #2) Psoriasis --full body involvement, extensive plaquing, peeling, severely cracked skin on feet --no sign of infection --triamcinolone cream BID to affected areas which is home regimen Hypertension --BP well-controlled --continue lisinopril, metoprolol Hyperlipidemia --continue Lipitor COPD --continue Symbicort, albuterol inhalers BPH --continue finasteride, tamsulosin Lower GI bleed --history of melena in November 2019 --colonoscopy revealed bleeding/cancerous polyp which was removed, reportedly not metastatic disease; no chemo or radiation --h/h stable, continue to monitor FEN Fluids: PO intake adequate Electrolytes: replete as indicated Nutrition: low sodium DVT prophylaxis: hold coumadin, INR supratherapeutic, check daily Physical therapy Dispo: continues to require inpatient care. Full code. Visit type - Emergency Visit Emergency Visit: Yes ED Registration Date: 03/23/20 Care time: The patient presented to the Emergency Department on the above date and was hospitalized for further evaluation of their emergent condition. - New Patient This patient is new to me today: No - Critical Care Critical Care patient: No - Medication Review Med list reviewed for High Risk Meds patients 65 and older: Yes
--- NOTE | 2020-03-24 15:05 | CON.CARD ---
Consult Consult Specialty:: cardiology Referred by:: brooklyn hidalgo Reason for Consultation:: chf - History of Present Illness Chief Complaint: le edema and sob History of Present Illness: 85 year old male (well known to me) with a pmhx of htn, hld, cad s/p director distribution of mLAD on cath 2002, chronic diastolic chf, afib on coumadin, copd, tobacco use, lower gi bleed (11/2019), and severe psoriasis presents with worsening LE edema, +ort hopnea, and increased weight over 10 pounds. No chest pain. No palpitations. Says compliant with meds and took double dose of furosemide with no improvement. BNP 14k EKG: afib, RBBB - History Source History Provided By: Patient, Medical Record - Past Medical History Cardio/Vascular: Yes: AFIB (chronic , on coumadin), HTN, Hyperlipdemia Pulmonary: Yes: COPD Endocrine: Yes: Other (pre-diabetes) Dermatology: Yes: Other (psoriasis) Additional Medical History: old clot in lesser saphenous vein on the left since 01/06) - Past Surgical History Past Surgical History: Yes: Cholecystectomy - Alcohol/Substance Use Hx Alcohol Use: No - Smoking History Smoking history: Current every day smoker Have you smoked in the past 12 months: Yes Aproximately how many cigarettes per day: 4 If you are a former smoker, when did you quit?: 6 MONTHS AGO - Social History Usual Living Arrangement: With Child ADL: Independent Occupation: Retired [employer] History of Recent Travel: No Home Medications - Allergies Allergies/Adverse Reactions: Allergies Allergy/AdvReac Type Severity Reaction Status Date / Time No Known Allergies Allergy Verified 03/23/20 11:16 - Home Medications Home Medications: Ambulatory Orders Atorvastatin Ca [Lipitor] 20 mg PO HS 01/10/15 Digoxin [Lanoxin -] 0.125 mg PO DAILY 01/10/15 Finasteride [Proscar] 5 mg PO DAILY 01/10/15 Metoprolol Tartrate [Lopressor -] 50 mg PO AM 01/10/15 Warfarin Sodium [Coumadin] 5 mg PO DAILY 01/10/15 Budesonide/Formeterol Fumarate [SYMBICORT 80/4.5mcg -] 2 puff IH BID #1 inhaler 07/19/17 Furosemide [Lasix -] 40 mg PO DAILY 02/20/19 Albuterol Sulfate Inhaler - [Ventolin HFA Inhaler -] 1 puff ACHS PRN 02/29/20 Lisinopril 10 mg PO DAILY 02/29/20 Tamsulosin HCl [Flomax] 0.4 mg PO HS 02/29/20 Acetaminophen [Tylenol .Regular Strength -] 650 mg PO Q6H PRN tablet 03/04/20 Metoprolol Tartrate [Lopressor -] 25 mg PO HS tablet 03/04/20 Triamcinolone 0.1% Cream [Aristocort] 1 applic TP BID 03/23/20 Family Medical History Family Hx Respiratory Disorders: Daughter Vital Signs: Vital Signs Temperature 98.0 F 03/24/20 14:08 Pulse Rate 90 03/24/20 14:08 Respiratory Rate 17 03/24/20 14:08 Blood Pressure 143/77 03/24/20 14:08 O2 Sat by Pulse Oximetry (%) 98 03/24/20 14:08 Constitutional: Yes: No Distress Neck: Yes: Supple Respiratory: Yes: Wheezes Gastrointestinal: Yes: Soft Cardiovascular: Yes: Pulse Irregular JVD: Yes Carotid Bruit: No PMI: Non-Displaced Heart Sounds: Yes: S1, S2 Edema: LLE: 2+, RLE: 2+ - Other Data Labs, Other Data: CBC, BMP 03/24/20 06:00 03/24/20 06:00 INR, PTT INR 3.51 (0.82-1.09) H 03/24/20 06:00 Troponin, BNP 03/23/20 03/23/20 17:00 23:00 Troponin I 0.06 H 0.04 Troponin, BNP 03/23/20 03/23/20 17:00 23:00 Troponin I 0.06 H 0.04 Imaging - Results Chest X-ray: Report Reviewed EKG: Image Reviewed Problem List - Problems (1) Acute exacerbation of CHF (congestive heart failure) Code(s): I50.9 - HEART FAILURE, UNSPECIFIED (2) CHF (congestive heart failure) Code(s): I50.9 - HEART FAILURE, UNSPECIFIED Qualifiers: Heart failure type: unspecified Heart failure chronicity: acute on chronic Qualified Code(s): I50.9 - Heart failure, unspecified (3) Afib Code(s): I48.91 - UNSPECIFIED ATRIAL FIBRILLATION Assessment/Plan 85 year old male (well known to me) with a pmhx of htn, hld, cad s/p director distribution of mLAD on cath 2002, chronic diastolic chf, afib on coumadin, copd, tobacco use, lower gi bleed (11/2019), and severe psoriasis presents with worsening LE edema, +orthopnea, and increased weight over 10 pounds. No chest pain. No palpitations. Says compliant with meds and took double dose of furosemide with no improvement. BNP 14k EKG: afib, RBBB CXr: r pleural effusion possible infiltrate or atelectasis 1) Acute on chronic diastolic chf -diurese with furosemide 40mg IV bid. Monitor lytes, bun/cr, and daily weights Diurese for couple days and than transition to PO. Change his po regimen to torsemide 40mg daily upon discharge. -BP and HR control Continue metoprolol and lisinopril -Plan for echocardiogram to see LVEF, degree of MR, and pulm htn (likely up given fluid status) 2) Afib -Rate is controlled on tele on home metoprolol and digoxin -INR is 3.5. Lower home coumadin dose to 4mg daily Pending COVID test
--- NOTE | 2020-03-24 15:22 | ECHO ---
Name: ARIELA TINOCO Exam:Adult Echocardiogram Study Date: 03/24/2020 02:24 PM Age: 85 yrs Reason For Study: LV Function Height: 74 in Weight: 205 lb BSA: 2.2 m2 MMode/2D Measurements & Calculations IVSd: 0.99 cm Ao root diam: 3.0 cm LVIDd: 4.9 cm LA dimension: 4.7 cm LVIDs: 3.1 cm LVPWd: 1.1 cm EDV(Teich): 114.0 ml LVOT diam: 2.0 cm ESV(Teich): 38.0 ml Doppler Measurements & Calculations MV E max radha: 123.6 cm/sec MV A max radha: 48.1 cm/sec MV dec slope: 1001 cm/sec2 MV E/A: 2.6 Ao V2 max: 151.1 cm/sec LV V1 max P.1 mmHg Ao max P.2 mmHg LV V1 max: 72.5 cm/sec GERMAINE(V,D): 1.5 cm2 MR max radha: 438.1 cm/sec TR max radha: 321.3 cm/sec MR max P.8 mmHg TR max P.3 mmHg PA V2 max: 115.4 cm/sec PI end-d radha: 146.6 cm/sec PA max P.3 mmHg Procedure A two-dimensional transthoracic echocardiogram with color flow and Doppler was performed. The patient was in atrial fibrillation with controlled ventricular rate during the exam. Left Ventricle The left ventricle is normal in size. Left ventricular systolic function is low normal. Ejection Frac tion = 50%. Diastolic dysfunction, Grade II, consistent with elevated left atrial pressure. There is apical akinesis. Distal anterior wall akinesis. Right Ventricle The right ventricle is normal in size and function. Atria The left atrium is moderately dilated. The right atrium is mildly dilated. Mitral Valve There is mild to moderate mitral annular calcification. There is mild mitral regurgitation. Tricuspid Valve There is mild tricuspid valve thickening. There is moderate to severe tricuspid regurgitation. Right ventricular systolic pressure is elevated at 50-60mmHg. Aortic Valve There is moderate aortic valve thickening. No hemodynamically significant valvular aortic stenosis. Pulmonic Valve The pulmonic valve is not well visualized. Great Vessels The aortic root is normal size. Pericardium/Pleura mild to moderate pericardial effusion. Interpretation Summary The left ventricle is normal in size. Left ventricular systolic function is low normal. Diastolic dysfunction, Grade II, consistent with elevated left atrial pressure. Distal anterior wall akinesis There is apical akinesis. The left atrium is moderately dilated. There is mild mitral regurgitation. There is moderate to severe tricuspid regurgitation. No hemodynamically significant valvular aortic stenosis. mild to moderate pericardial effusion Right ventricular systolic pressure is elevated at 50-60mmHg. MD Carmelo Broderick 03/24/2020 03:22 PM
[2020-03-24] MEDS: METOPROLOL TARTRATE 25 MG TABLET (FP) PO SCH (21:41)
[2020-03-24] MEDS: TAMSULOSIN HCL 0.4 MG CAP PO SCH (21:41)
[2020-03-24] MEDS: ATORVASTATIN CA 20 MG TABLET (FP) PO SCH (21:41)
[2020-03-25] MEDS: FUROSEMIDE 40 MG/4 ML INJECTABLE VIAL IVPUSH SCH ×2 (06:31→13:35)
[2020-03-25] MEDS: METOPROLOL TARTRATE 50 MG TABLET (FP) PO SCH (06:31)
--- NOTE | 2020-03-25 08:44 | PN ---
Physical Exam: SUBJECTIVE: Patient seen and examined at bedside. Voices no complaints. OBJECTIVE: Vital Signs Period Temp Pulse Resp BP Sys/Molina Pulse Ox Last 24 Hr 97.5 F-98.5 F 77-103 17-18 102-143/59-77 95-99 GENERAL: The patient is awake, alert, and fully oriented, in no acute distress. HEAD: Normal with no signs of trauma. EYES: PERRL, extraocular movements intact, sclera anicteric, conjunctiva clear. No ptosis. LUNGS: Diffuse crackles, scattered wheezes HEART: Regular rate and rhythm, S1, S2 ABDOMEN: Edematous SKIN: Extensive plaquing on arms, chest, back, legs, feet, underlying skin deeply erythematous LOWER EXTREMITIES: edema signifiantly improved, skin puckered not tense NEUROLOGICAL: Cranial nerves II through XII grossly intact. Normal speech, gait not observed. Laboratory Results - last 24 hr 03/23/20 03/24/20 03/24/20 11:44 06:00 06:00 WBC 8.4 RBC 3.91 L Hgb 11.5 L Hct 35.9 MCV 91.7 MCH 29.4 MCHC 32.0 RDW 15.4 Plt Count 270 MPV 7.1 L Absolute Neuts (auto) 5.9 Neutrophils % 69.9 Lymphocytes % 18.2 D Monocytes % 7.9 Eosinophils % 3.6 Basophils % 0.4 PT with INR INR PTT (Actin FS) Sodium Potassium Chloride Carbon Dioxide Anion Gap BUN Creatinine Est GFR (CKD-EPI)AfAm Est GFR (CKD-EPI)NonAf Random Glucose Calcium Magnesium Total Bilirubin Direct Bilirubin AST ALT Alkaline Phosphatase LD Total Total Protein Albumin Digoxin 0.84 COVID-19 (RICARDO) Not detected 03/24/20 03/24/20 03/24/20 06:00 06:00 06:00 WBC RBC Hgb Hct MCV MCH MCHC RDW Plt Count MPV Absolute Neuts (auto) Neutrophils % Lymphocytes % Monocytes % Eosinophils % Basophils % PT with INR 38.4 H INR 3.51 H PTT (Actin FS) 38.1 H Sodium 141 Potassium 5.1 Chloride 105 Carbon Dioxide 27 Anion Gap 9 BUN 24.0 H Creatinine 1.3 Est GFR (CKD-EPI)AfAm 58.48 Est GFR (CKD-EPI)NonAf 50.46 Random Glucose 83 Calcium 8.3 L Magnesium 1.8 Total Bilirubin 1.8 H Direct Bilirubin 0.3 H AST 21 ALT 24 Alkaline Phosphatase 57 LD Total Total Protein 5.6 L Albumin 2.8 L Digoxin COVID-19 (RICARDO) 03/24/20 06:00 WBC RBC Hgb Hct MCV MCH MCHC RDW Plt Count MPV Absolute Neuts (auto) Neutrophils % Lymphocytes % Monocytes % Eosinophils % Basophils % PT with INR INR PTT (Actin FS) Sodium Potassium Chloride Carbon Dioxide Anion Gap BUN Creatinine Est GFR (CKD-EPI)AfAm Est GFR (CKD-EPI)NonAf Random Glucose Calcium Magnesium Total Bilirubin Direct Bilirubin AST ALT Alkaline Phosphatase LD Total 160 Total Protein Albumin Digoxin COVID-19 (RICARDO) Active Medications Generic Name Dose Route Start Last Admin Trade Name Freq PRN Reason Stop Dose Admin Albuterol Sulfate 1 puff 03/23/20 14:46 03/23/20 17:11 Ventolin Hfa Inhaler - IH 1 puff ACHS PRN Administration Dyspnea Atorvastatin Calcium 20 mg 03/23/20 22:00 03/24/20 21:41 Lipitor - PO 20 mg HS GINA Administration Budesonide/Formoterol Fumarate 2 puff 03/23/20 22:00 03/24/20 21:42 Symbicort 80/4.5mcg - IH 2 puff BID GINA Administration Digoxin 0.125 mg 03/24/20 10:00 03/24/20 10:03 Lanoxin - PO 0.125 mg DAILY GINA Administration Doxycycline Hyclate 100 mg 03/23/20 18:00 03/24/20 17:28 Vibramycin - PO 100 mg BID@1000,1800 GINA Administration Finasteride 5 mg 03/24/20 10:00 03/24/20 10:03 Proscar - PO 5 mg DAILY GINA Administration Furosemide 40 mg 03/24/20 06:00 03/25/20 06:31 Lasix Injection - IVPUSH 40 mg BID@0600,1400 GINA Administration Ceftriaxone Sodium 1 gm/ 50 mls @ 200 mls/hr 03/24/20 10:00 03/24/20 10:03 Dextrose IVPB 200 mls/hr DAILY GINA Administration Protocol Lisinopril 10 mg 03/24/20 10:00 03/24/20 10:02 Prinivil PO 10 mg DAILY GINA Administration Metoprolol Tartrate 25 mg 03/23/20 22:00 03/24/20 21:41 Lopressor - PO 25 mg HS GINA Administration Metoprolol Tartrate 50 mg 03/24/20 07:00 03/25/20 06:31 Lopressor - PO 50 mg AM GINA Administration Tamsulosin HCl 0.4 mg 03/23/20 22:00 03/24/20 21:41 Flomax - PO 0.4 mg HS GINA Administration Triamcinolone Acetonide 1 applic 03/23/20 22:00 03/24/20 21:42 Aristocort 0.1% Cream - TP 1 applic BID GINA Administration ASSESSMENT/PLAN: 85 year-old male with a PMH significant for HTN, HLD, CAD, diastolic heart failure, afib on coumadin, COPD and current every day smoker, severe psoriasis, BPH, lower GI bleed (11/2019), and recent admission for LLE cellulitis and CHF exacerbation (02/28-03/04/2020). Admitted for CHF exacerbation Acute on chronic diastolic heart failure --on admission BNP>14,000; edema from feet to abdomen; CXR showed new right pleural effusion, fluid in horizontal fissure, new congestive changes; echo on 03/24 showed afib; LV low normal, EF 50%, Grade II diastolic dysfunction; apical akinesis, distal anterior wall akinesis; RV normal; BLAE; mild MR; moderate to severe TR; pHTN; mild to moderate pericardial effusion --diuresing well, and renal function stable, continue Lasix IVP 40mg BID --continue digoxin (level therapeutic), lisinopril, metoprolol --repeat CXR today: progressive right pulmonary and pleural findings, congestive changes; discussed with Dr. Broderick, continue current level of diuresis, if UOP drops off will adjust Coronary artery disease --troponin neg x 3 --continue lisinopril, metoprolol, Lipitor Atrial fibrillation --rate controlled, continue digoxin and metoprolol --INR 2.61, resume coumadin at 4mg daily r/o pneumonia --possible infiltrate on CXR but afebrile, no leukocytosis --given h/o COPD, active smoker, and this is third hospitalization in four months, will continue empiric antibiotic coverage --ceftriaxone (day #3), doxycycline for atypicals (day #3) Psoriasis --full body involvement, extensive plaquing, peeling, severely cracked skin on feet --no sign of infection --triamcinolone cream BID to affected areas which is home regimen Hypertension --BP well-controlled --continue lisinopril, metoprolol Hyperlipidemia --continue Lipitor COPD --continue Symbicort, duonebs TID BPH --continue finasteride, tamsulosin Lower GI bleed --history of melena in November 2019 --colonoscopy revealed bleeding/cancerous polyp which was removed, reportedly not metastatic disease; no chemo or radiation --h/h stable, continue to monitor FEN Fluids: PO intake adequate Electrolytes: replete as indicated Nutrition: low sodium DVT prophylaxis: resume coumadin tonight Physical therapy Dispo: continues to require inpatient care. Full code. Visit type - Emergency Visit Emergency Visit: Yes ED Registration Date: 03/23/20 Care time: The patient presented to the Emergency Department on the above date and was hospitalized for further evaluation of their emergent condition. - New Patient This patient is new to me today: No - Critical Care Critical Care patient: No - Medication Review Med list reviewed for High Risk Meds patients 65 and older: Yes
[2020-03-25] MEDS ORDERED: cefTRIAXone SODIUM 1 GM VIAL ONE (09:19)
[2020-03-25] MEDS ORDERED: DEXTROSE 5%-WATER - 50 ML IVPB ONE (09:20)
[2020-03-25 09:24] LABS: INR 2.61 (0.82-1.09); PROTHROMBIN TIME (PATIENT) 28.7 SEC (10.2-13.0)
[2020-03-25 09:51] LABS: ALBUMIN 2.8 g/dl (3.4-5.0); BILIRUBIN,DIRECT 0.3 mg/dL (0.0-0.2); BILIRUBIN,TOTAL 1.9 mg/dl (0.2-1); CALCIUM 8.1 mg/dl (8.5-10); CREATININE 1.4 mg/dl (0.55-1.3); MAGNESIUM 1.6 mg/dL (1.8-2.4); POTASSIUM 4.4 mmol/L (3.5-5.1); TOT PROT 5.8 g/dl (6.4-8.2)
[2020-03-25] MEDS: FINASTERIDE 5 MG TABLET (FP) PO SCH (09:55)
[2020-03-25] MEDS: DIGOXIN 0.125 MG TABLET (FP) PO SCH (09:55)
[2020-03-25] MEDS: DOXYCYCLINE HYCLATE 100 MG CAPSULE PO SCH ×2 (09:55→18:23)
[2020-03-25] MEDS: LISINOPRIL 10 MG TABLET PO SCH (09:55)
[2020-03-25] MEDS: CEFTRIAXONE 1 GM in DEXTROSE 5%-WATER - 50 ML IVPB SCH (09:57)
[2020-03-25] MEDS: TRIAMCINOLONE ACET 0.1% CREAM 15 GM TUBE TP SCH ×2 (09:57→22:01)
[2020-03-25] MEDS: BUDESONIDE/FORMETEROL FUMARATE 80/4.5 mcg INHALER IH SCH ×2 (09:57→22:00)
[2020-03-25] MEDS ORDERED: MAGNESIUM SULF 50% (8.12 MEQ/2 ML-1 GM VIAL) IVPB ONE (12:29)
[2020-03-25] MEDS ORDERED: MAGNESIUM SULFATE IN WATER 2 GM/50 ML IVPB IVPB ONE (12:45)
[2020-03-25] MEDS: ALBUTEROL SO4 2.5/IPRATROPIUM 0.5 INH SOL 3 ML VIAL.NEB. NEB SCH ×2 (13:35→20:03)
--- NOTE | 2020-03-25 14:11 | PN ---
Progress Note, Physician Chief Complaint: Diuresing LE edema improving but still volume overloaded Still wheezy on exam History of Present Illness: 85 year old male (well known to me) with a pmhx of htn, hld, 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 No chest pain. No palpitations. Says compliant with meds and took double dose of furosemide with no improvement. BNP 14k EKG: afib, RBBB - Current Medication List Current Medications: Active Medications Albuterol/Ipratropium (Duoneb -) 1 amp NEB TID@0800,1400,2000 [facility] Last Admin: 03/25/20 13:35 Dose: 1 amp Documented by: Atorvastatin Calcium (Lipitor -) 20 mg PO [facility] Last Admin: 03/24/20 21:41 Dose: 20 mg Documented by: Budesonide/Formoterol Fumarate (Symbicort 80/4.5mcg -) 2 puff IH BID [facility] Last Admin: 03/25/20 09:57 Dose: 2 puff Documented by: Digoxin (Lanoxin -) 0.125 mg PO DAILY [facility] Last Admin: 03/25/20 09:55 Dose: 0.125 mg Documented by: Doxycycline Hyclate (Vibramycin -) 100 mg PO BID@1000,1800 [facility] Last Admin: 03/25/20 09:55 Dose: 100 mg Documented by: Finasteride (Proscar -) 5 mg PO DAILY [facility] Last Admin: 03/25/20 09:55 Dose: 5 mg Documented by: Furosemide (Lasix Injection -) 40 mg IVPUSH BID@0600,1400 [facility] Last Admin: 03/25/20 13:35 Dose: 40 mg Documented by: Ceftriaxone Sodium 1 gm/ (Dextrose) 50 mls @ 200 mls/hr IVPB DAILY [facility]; Protocol Last Admin: 03/25/20 09:57 Dose: 200 mls/hr Documented by: Lisinopril (Prinivil) 10 mg PO DAILY [facility] Last Admin: 03/25/20 09:55 Dose: 10 mg Documented by: Metoprolol Tartrate (Lopressor -) 25 mg PO [facility] Last Admin: 03/24/20 21:41 Dose: 25 mg Documented by: Metoprolol Tartrate (Lopressor -) 50 mg PO AM [facility] Last Admin: 03/25/20 06:31 Dose: 50 mg Documented by: Tamsulosin HCl (Flomax -) 0.4 mg PO HS [facility] Last Admin: 03/24/20 21:41 Dose: 0.4 mg Documented by: Triamcinolone Acetonide (Aristocort 0.1% Cream -) 1 applic TP BID [facility] Last Admin: 03/25/20 09:57 Dose: 1 applic Documented by: Warfarin Sodium (Coumadin -) 4 mg PO DAILY@1800 [facility] - Objective Vital Signs: Vital Signs Temperature 98.0 F 03/25/20 09:02 Pulse Rate 110 H 03/25/20 10:00 Respiratory Rate 19 03/25/20 09:02 Blood Pressure 123/50 L 03/25/20 09:02 O2 Sat by Pulse Oximetry (%) 85 L 03/25/20 10:00 Constitutional: Yes: No Distress Neck: Yes: Supple Cardiovascular: Yes: Pulse Irregular, JVD, S1, S2 Respiratory: Yes: Wheezes Gastrointestinal: Yes: Soft Edema: LLE: 1+, RLE: 1+ Labs: CBC, BMP 03/24/20 06:00 03/25/20 09:09 INR, PTT INR 2.61 (0.82-1.09) H 03/25/20 09:09 Problem List - Problems (1) Acute exacerbation of CHF (congestive heart failure) Code(s): I50.9 - HEART FAILURE, UNSPECIFIED (2) CHF (congestive heart failure) Code(s): I50.9 - HEART FAILURE, UNSPECIFIED Qualifiers: Heart failure type: unspecified Heart failure chronicity: acute on chronic Qualified Code(s): I50.9 - Heart failure, unspecified (3) Afib Code(s): I48.91 - UNSPECIFIED ATRIAL FIBRILLATION Assessment/Plan 85 year old male (well known to me) with a pmhx of htn, hld, 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 No chest pain. No palpitations. Says compliant with meds and took double dose of furosemide with no improvement. BNP 14k EKG: afib, RBBB CXr: r pleural effusion possible infiltrate or atelectasis 1) Acute on chronic diastolic chf -diurese with furosemide 40mg IV bid. Monitor lytes, bun/cr, and daily weights Significant volume overload will take some time to diurese. CXR worse but LE edema improved and good urine output with Cr 1.4 will continue current IV regimen. Upon DC change his po regimen to torsemide 40mg daily upon discharge. -BP and HR control Continue metoprolol and lisinopril 2) Afib -Rate is controlled on tele on home metoprolol and digoxin Continue tele -coumadin dose 4mg daily INR 2.6 3) COPD Patient with h/o copd and exp wheeze on exam. Wheeze may be cardiac but appears that patient is making good urine output and diuresing but still with exp wheeze and lower sats with exertion. Would continue dose of steroids as well
[2020-03-25] MEDS: WARFARIN NA 2 MG TABLET PO SCH (18:22)
[2020-03-25] MEDS: ATORVASTATIN CA 20 MG TABLET (FP) PO SCH (22:00)
[2020-03-25] MEDS: TAMSULOSIN HCL 0.4 MG CAP PO SCH (22:00)
[2020-03-25] MEDS: METOPROLOL TARTRATE 25 MG TABLET (FP) PO SCH (22:04)
[2020-03-26] MEDS: FUROSEMIDE 40 MG/4 ML INJECTABLE VIAL IVPUSH SCH ×2 (06:11→15:10)
[2020-03-26 07:34] LABS: BASO % 0.2 % (0-2.0); EOS % 3.4 % (0-4.5); HEMATOCRIT 33.1 % (35.4-49); HEMOGLOBIN 10.6 GM/dl (11.7-16.9); LYMPH % 18.2 % (8-40); MCH 29.4 pg (25.7-33.7); MCHC 32.2 g/dl (32.0-35.9); MEAN CELL VOLUME 91.6 fl (80-96); MEAN PLT VOLUME 7.1 fl (7.5-11.1); MONO % 8.9 % (3.8-10.2); NEUT % 69.3 % (42.8-82.8); PLATELET COUNT 236 K/MM3 (134-434); RBC 3.62 M/mm3 (4.00-5.60); RDW 15.1 % (11.9-15.9); WHITE BLOOD COUNT 8.1 K/mm3 (4.0-10.8)
[2020-03-26 07:37] LABS: INR 2.19 (0.82-1.09); PROTHROMBIN TIME (PATIENT) 24.1 SEC (10.2-13.0)
[2020-03-26 07:40] LABS: ALBUMIN 2.4 g/dl (3.4-5.0); BILIRUBIN,TOTAL 1.5 mg/dl (0.2-1); CREATININE 1.3 mg/dl (0.55-1.3); MAGNESIUM 1.8 mg/dL (1.8-2.4); POTASSIUM 4.3 mmol/L (3.5-5.1); TOT PROT 5.1 g/dl (6.4-8.2)
[2020-03-26] MEDS: METOPROLOL TARTRATE 50 MG TABLET (FP) PO SCH (08:10)
[2020-03-26] MEDS: ALBUTEROL SO4 2.5/IPRATROPIUM 0.5 INH SOL 3 ML VIAL.NEB. NEB SCH ×3 (08:12→20:00)
[2020-03-26] MEDS ORDERED: cefTRIAXone SODIUM 1 GM VIAL ONE (08:55)
[2020-03-26] MEDS ORDERED: DEXTROSE 5%-WATER - 50 ML IVPB ONE (08:55)
[2020-03-26] MEDS: FINASTERIDE 5 MG TABLET (FP) PO SCH (09:01)
[2020-03-26] MEDS: LISINOPRIL 10 MG TABLET PO SCH (09:02)
[2020-03-26] MEDS: DIGOXIN 0.125 MG TABLET (FP) PO SCH (09:02)
[2020-03-26] MEDS: BUDESONIDE/FORMETEROL FUMARATE 80/4.5 mcg INHALER IH SCH ×2 (09:03→21:36)
[2020-03-26] MEDS: TRIAMCINOLONE ACET 0.1% CREAM 15 GM TUBE TP SCH ×2 (09:03→21:34)
[2020-03-26] MEDS: CEFTRIAXONE 1 GM in DEXTROSE 5%-WATER - 50 ML IVPB SCH (09:03)
[2020-03-26] MEDS: DOXYCYCLINE HYCLATE 100 MG CAPSULE PO SCH ×2 (09:03→18:39)
--- NOTE | 2020-03-26 13:57 | PN ---
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 No chest pain. No palpitations. Says compliant with meds and took double dose of furosemide with no improvement. BNP 14k EKG: afib, RBBB - Current Medication List Current Medications: Active Medications Albuterol/Ipratropium (Duoneb -) 1 amp NEB TID@0800,1400,2000 [facility] Last Admin: 03/26/20 08:12 Dose: 1 amp Documented by: Atorvastatin Calcium (Lipitor -) 20 mg PO [facility] Last Admin: 03/25/20 22:00 Dose: 20 mg Documented by: Budesonide/Formoterol Fumarate (Symbicort 80/4.5mcg -) 2 puff IH BID [facility] Last Admin: 03/26/20 09:03 Dose: 2 puff Documented by: Digoxin (Lanoxin -) 0.125 mg PO DAILY [facility] Last Admin: 03/26/20 09:02 Dose: 0.125 mg Documented by: Doxycycline Hyclate (Vibramycin -) 100 mg PO BID@1000,1800 [facility] Last Admin: 03/26/20 09:03 Dose: 100 mg Documented by: Finasteride (Proscar -) 5 mg PO DAILY [facility] Last Admin: 03/26/20 09:01 Dose: 5 mg Documented by: Furosemide (Lasix Injection -) 40 mg IVPUSH BID@0600,1400 [facility] Last Admin: 03/26/20 06:11 Dose: 40 mg Documented by: Ceftriaxone Sodium 1 gm/ (Dextrose) 50 mls @ 200 mls/hr IVPB DAILY [facility]; Protocol Last Admin: 03/26/20 09:03 Dose: 200 mls/hr Documented by: Lisinopril (Prinivil) 10 mg PO DAILY [facility] Last Admin: 03/26/20 09:02 Dose: 10 mg Documented by: Metoprolol Tartrate (Lopressor -) 25 mg PO [facility] Last Admin: 03/25/20 22:04 Dose: 25 mg Documented by: Metoprolol Tartrate (Lopressor -) 50 mg PO AM [facility] Last Admin: 03/26/20 08:10 Dose: 50 mg Documented by: Tamsulosin HCl (Flomax -) 0.4 mg PO HS [facility] Last Admin: 03/25/20 22:00 Dose: 0.4 mg Documented by: Triamcinolone Acetonide (Aristocort 0.1% Cream -) 1 applic TP BID [facility] Last Admin: 03/26/20 09:03 Dose: 1 applic Documented by: Warfarin Sodium (Coumadin -) 4 mg PO DAILY@1800 [facility] Last Admin: 03/25/20 18:22 Dose: 4 mg Documented by: - Objective Vital Signs: Vital Signs Temperature 98.4 F 03/26/20 09:16 Pulse Rate 85 03/26/20 09:16 Respiratory Rate 18 03/26/20 09:16 Blood Pressure 100/57 L 03/26/20 09:16 O2 Sat by Pulse Oximetry (%) 100 03/26/20 07:39 Constitutional: Yes: No Distress Neck: Yes: Supple Cardiovascular: Yes: Pulse Irregular, JVD, S1, S2 Respiratory: Yes: Rales Gastrointestinal: Yes: Soft Edema: LLE: 1+, RLE: 1+ Labs: CBC, BMP 03/26/20 06:59 03/26/20 06:59 INR, PTT INR 2.19 (0.82-1.09) H 03/26/20 06:59 Problem List - Problems (1) Acute exacerbation of CHF (congestive heart failure) Code(s): I50.9 - HEART FAILURE, UNSPECIFIED (2) CHF (congestive heart failure) Code(s): I50.9 - HEART FAILURE, UNSPECIFIED Qualifiers: Heart failure type: unspecified Heart failure chronicity: acute on chronic Qualified Code(s): I50.9 - Heart failure, unspecified (3) Afib Code(s): I48.91 - UNSPECIFIED ATRIAL FIBRILLATION Assessment/Plan 85 year old male (well known to me) with a pmhx of htn, hld, cad s/p active directory specialist of mLAD on cath 2002, chronic diastolic chf, afib on coumadin, copd, tobacco use, lower gi bleed (11/2019), and severe psoriasis presents with worsening LE edema, +orthopnea, and increased weight over 10 pounds. No chest pain. No palpitations. Says compliant with meds and took double dose of furosemide with no improvement. BNP 14k EKG: afib, RBBB CXr: r pleural effusion possible infiltrate or atelectasis 1) Acute on chronic diastolic chf -diurese with furosemide 40mg IV bid. Monitor lytes, bun/cr, and daily weights Significant volume overload will take some time to diurese but much improved and diuresing well. Would likely plan for possible DC Sunday or Sunday depending on clinical status. Upon DC change his po regimen to torsemide 40mg daily upon discharge. -BP and HR control Continue metoprolol and lisinopril 2) Afib -Rate is controlled on tele on home metoprolol and digoxin Continue tele -coumadin INR goal 2-3 3) COPD as per primary team Follow up with me upon discharge
--- NOTE | 2020-03-26 14:14 | PN ---
Physical Exam: SUBJECTIVE: Patient seen and examined oob to chair. OBJECTIVE: Vital Signs Period Temp Pulse Resp BP Sys/Molina Pulse Ox Last 24 Hr 97.5 F-98.4 F 70-91 18-18 100-122/50-60 97-100 GENERAL: The patient is awake, alert, and fully oriented, in no acute distress. HEAD: Normal with no signs of trauma. EYES: PERRL, extraocular movements intact, sclera anicteric, conjunctiva clear. No ptosis. LUNGS: Diffuse crackles, scattered wheezes HEART: Regular rate and rhythm, S1, S2 ABDOMEN: Edematous SKIN: Extensive plaquing on arms, chest, back, legs, feet, underlying skin deeply erythematous LOWER EXTREMITIES: edema continues to resolve, 1-2+ NEUROLOGICAL: Cranial nerves II through XII grossly intact. Normal speech, gait not observed. 03/23/20 03/26/20 03/26/20 15:58 06:59 06:59 WBC 8.1 RBC 3.62 L Hgb 10.6 L Hct 33.1 L MCV 91.6 MCH 29.4 MCHC 32.2 RDW 15.1 Plt Count 236 MPV 7.1 L Absolute Neuts (auto) 5.6 Neutrophils % 69.3 Lymphocytes % 18.2 Monocytes % 8.9 Eosinophils % 3.4 Basophils % 0.2 PT with INR 24.1 H INR 2.19 H Sodium Potassium Chloride Carbon Dioxide Anion Gap BUN Creatinine Est GFR (CKD-EPI)AfAm Est GFR (CKD-EPI)NonAf Random Glucose Calcium Magnesium Total Bilirubin AST ALT Alkaline Phosphatase Troponin I Cancelled Total Protein Albumin 03/26/20 06:59 WBC RBC Hgb Hct MCV MCH MCHC RDW Plt Count MPV Absolute Neuts (auto) Neutrophils % Lymphocytes % Monocytes % Eosinophils % Basophils % PT with INR INR Sodium 141 Potassium 4.3 Chloride 102 Carbon Dioxide 31 Anion Gap 8 BUN 24.0 H Creatinine 1.3 Est GFR (CKD-EPI)AfAm 58.48 Est GFR (CKD-EPI)NonAf 50.46 Random Glucose 101 Calcium 8.0 L Magnesium 1.8 Total Bilirubin 1.5 H AST 16 ALT 18 Alkaline Phosphatase 49 D Troponin I Total Protein 5.1 L Albumin 2.4 L Active Medications Generic Name Dose Route Start Last Admin Trade Name Freq PRN Reason Stop Dose Admin Albuterol/Ipratropium 1 amp 03/25/20 14:00 03/26/20 08:12 Duoneb - NEB 1 amp TID@0800,1400,2000 [facility] Administration Atorvastatin Calcium 20 mg 03/23/20 22:00 03/25/20 22:00 Lipitor - PO 20 mg HS [facility] Administration Budesonide/Formoterol Fumarate 2 puff 03/23/20 22:00 03/26/20 09:03 Symbicort 80/4.5mcg - IH 2 puff BID [facility] Administration Digoxin 0.125 mg 03/24/20 10:00 03/26/20 09:02 Lanoxin - PO 0.125 mg DAILY [facility] Administration Doxycycline Hyclate 100 mg 03/23/20 18:00 03/26/20 09:03 Vibramycin - PO 100 mg BID@1000,1800 [facility] Administration Finasteride 5 mg 03/24/20 10:00 03/26/20 09:01 Proscar - PO 5 mg DAILY [facility] Administration Furosemide 40 mg 03/24/20 06:00 03/26/20 06:11 Lasix Injection - IVPUSH 40 mg BID@0600,1400 [facility] Administration Ceftriaxone Sodium 1 gm/ 50 mls @ 200 mls/hr 03/24/20 10:00 03/26/20 09:03 Dextrose IVPB 200 mls/hr DAILY [facility] Administration Protocol Lisinopril 10 mg 03/24/20 10:00 03/26/20 09:02 Prinivil PO 10 mg DAILY [facility] Administration Metoprolol Tartrate 25 mg 03/23/20 22:00 03/25/20 22:04 Lopressor - PO 25 mg HS [facility] Administration Metoprolol Tartrate 50 mg 03/24/20 07:00 03/26/20 08:10 Lopressor - PO 50 mg AM [facility] Administration Tamsulosin HCl 0.4 mg 03/23/20 22:00 03/25/20 22:00 Flomax - PO 0.4 mg HS [facility] Administration Triamcinolone Acetonide 1 applic 03/23/20 22:00 03/26/20 09:03 Aristocort 0.1% Cream - TP 1 applic BID [facility] Administration Warfarin Sodium 4 mg 03/25/20 18:00 03/25/20 18:22 Coumadin - PO 4 mg DAILY@1800 [facility] Administration ASSESSMENT/PLAN: 85 year-old male with a PMH significant for HTN, HLD, CAD, diastolic heart failure, afib on coumadin, COPD and current every day smoker, severe psoriasis, BPH, lower GI bleed (11/2019), and recent admission for LLE cellulitis and CHF exacerbation (02/28-03/04/2020). Admitted for CHF exacerbation Acute on chronic diastolic heart failure --continues to diurese well, renal function stable, continue Lasix IVP 40mg BID --continue digoxin (level therapeutic), lisinopril, metoprolol --cardiology following, plan for possible discharge Sunday or Sunday depending on clinical status; on discharge change PO diuretic to torsemide 40mg daily Coronary artery disease --troponin neg x 3 --continue lisinopril, metoprolol, Lipitor Atrial fibrillation --rate controlled, continue digoxin and metoprolol --INR 2.19, continue coumadin at 4mg daily r/o pneumonia --possible infiltrate on CXR but afebrile, no leukocytosis --given h/o COPD, active smoker, and this is third hospitalization in four months, will continue empiric antibiotic coverage --ceftriaxone (day #4), doxycycline for atypicals (day #4); complete 5 days of treatment and stop Psoriasis --full body involvement, extensive plaquing, peeling, severely cracked skin on feet --no sign of infection --triamcinolone cream BID to affected areas and cover with stockinet Hypertension --BP well-controlled --continue lisinopril, metoprolol Hyperlipidemia --continue Lipitor COPD --continue Symbicort, duonebs TID BPH --continue finasteride, tamsulosin Lower GI bleed --history of melena in November 2019 --colonoscopy revealed bleeding/cancerous polyp which was removed, reportedly not metastatic disease; no chemo or radiation --h/h stable, continue to monitor FEN Fluids: PO intake adequate Electrolytes: replete as indicated Nutrition: low sodium DVT prophylaxis: resume coumadin tonight Physical therapy Dispo: continues to require inpatient care. Full code. Visit type - Emergency Visit Emergency Visit: Yes ED Registration Date: 03/23/20 Care time: The patient presented to the Emergency Department on the above date and was hospitalized for further evaluation of their emergent condition. - New Patient This patient is new to me today: No - Critical Care Critical Care patient: No - Discharge Referral Referred to [facility] Med P.C[facility] No - Medication Review Med list reviewed for High Risk Meds patients 65 and older: Yes
[2020-03-26] MEDS: WARFARIN NA 2 MG TABLET PO SCH (18:39)
[2020-03-26] MEDS: ATORVASTATIN CA 20 MG TABLET (FP) PO SCH (21:34)
[2020-03-26] MEDS: TAMSULOSIN HCL 0.4 MG CAP PO SCH (21:35)
[2020-03-26] MEDS: METOPROLOL TARTRATE 25 MG TABLET (FP) PO SCH (21:35)
[2020-03-27] MEDS: FUROSEMIDE 40 MG/4 ML INJECTABLE VIAL IVPUSH SCH ×2 (06:10→13:43)
[2020-03-27] MEDS: METOPROLOL TARTRATE 50 MG TABLET (FP) PO SCH (06:11)
[2020-03-27] MEDS: ALBUTEROL SO4 2.5/IPRATROPIUM 0.5 INH SOL 3 ML VIAL.NEB. NEB SCH ×3 (08:08→21:18)
[2020-03-27 09:35] LABS: WHITE BLOOD COUNT 8.3 K/mm3 (4.0-10.8)
[2020-03-27 09:44] LABS: BASO % 0.8 % (0-2.0); EOS % 3.8 % (0-4.5); HEMOGLOBIN 10.9 GM/dl (11.7-16.9); LYMPH % 16.3 % (8-40); MCH 29.4 pg (25.7-33.7); MCHC 32.2 g/dl (32.0-35.9); MEAN CELL VOLUME 91.1 fl (80-96); MEAN PLT VOLUME 6.6 fl (7.5-11.1); MONO % 7.6 % (3.8-10.2); NEUT % 71.5 % (42.8-82.8); PLATELET COUNT 263 K/MM3 (134-434); RBC 3.73 M/mm3 (4.00-5.60)
[2020-03-27 09:53] LABS: INR 2.02 (0.82-1.09); PROTHROMBIN TIME (PATIENT) 22.3 SEC (10.2-13.0)
[2020-03-27] MEDS ORDERED: cefTRIAXone SODIUM 1 GM VIAL ONE (09:55)
[2020-03-27] MEDS ORDERED: DEXTROSE 5%-WATER - 50 ML IVPB ONE (09:55)
[2020-03-27] MEDS: DIGOXIN 0.125 MG TABLET (FP) PO SCH (09:57)
[2020-03-27] MEDS: LISINOPRIL 10 MG TABLET PO SCH (09:57)
[2020-03-27] MEDS: FINASTERIDE 5 MG TABLET (FP) PO SCH (09:57)
[2020-03-27] MEDS: CEFTRIAXONE 1 GM in DEXTROSE 5%-WATER - 50 ML IVPB SCH (09:57)
[2020-03-27] MEDS: DOXYCYCLINE HYCLATE 100 MG CAPSULE PO SCH ×2 (09:58→17:05)
[2020-03-27] MEDS: BUDESONIDE/FORMETEROL FUMARATE 80/4.5 mcg INHALER IH SCH ×2 (09:58→21:20)
[2020-03-27] MEDS: TRIAMCINOLONE ACET 0.1% CREAM 15 GM TUBE TP SCH ×2 (10:01→21:19)
[2020-03-27 10:11] LABS: ALBUMIN 2.5 g/dl (3.4-5.0); BILIRUBIN,TOTAL 1.6 mg/dl (0.2-1); CALCIUM 8.1 mg/dl (8.5-10); CREATININE 1.3 mg/dl (0.55-1.3); MAGNESIUM 1.7 mg/dL (1.8-2.4); TOT PROT 5.3 g/dl (6.4-8.2)
--- NOTE | 2020-03-27 10:27 | PN ---
Physical Exam: SUBJECTIVE: Patient seen and examined OBJECTIVE: Vital Signs Period Temp Pulse Resp BP Sys/Molina Pulse Ox Last 24 Hr 98.1 F-98.6 F 78-99 16-20 91-112/42-61 95-99 GENERAL: The patient is awake, alert, and fully oriented, in no acute distress. ENT: Ears normal, nares patent, oropharynx clear without exudates, moist mucous membranes. NECK: Trachea midline, full range of motion, supple. LUNGS: Breath sounds equal, clear to auscultation bilaterally, no wheezes, no crackles, no accessory muscle use. HEART: Regular rate and rhythm, S1, S2 without murmur, rub or gallop. ABDOMEN: Soft, nontender, nondistended, normoactive bowel sounds, no guarding, no rebound, no hepatosplenomegaly, no masses. EXTREMITIES: 2+ edema NEUROLOGICAL: Cranial nerves II through XII grossly intact. Normal speech, gait not observed. PSYCH: Normal mood, normal affect. SKIN: Extensive plaquing on arms, chest, back, legs, feet, underlying skin deeply erythematous Laboratory Results - last 24 hr 03/27/20 03/27/20 03/27/20 09:30 09:30 09:30 WBC 8.3 RBC 3.73 L Hgb 10.9 L Hct 34.0 L MCV 91.1 MCH 29.4 MCHC 32.2 RDW 15.0 Plt Count 263 MPV 6.6 L Absolute Neuts (auto) 6.0 Neutrophils % 71.5 Lymphocytes % 16.3 Monocytes % 7.6 Eosinophils % 3.8 Basophils % 0.8 D PT with INR 22.3 H INR 2.02 H Sodium 141 Potassium 4.0 Chloride 99 Carbon Dioxide 32 Anion Gap 10 BUN 23.0 H Creatinine 1.3 Est GFR (CKD-EPI)AfAm 58.48 Est GFR (CKD-EPI)NonAf 50.46 Random Glucose 114 H Calcium 8.1 L Magnesium 1.7 L Total Bilirubin 1.6 H AST 19 ALT 17 Alkaline Phosphatase 49 Total Protein 5.3 L Albumin 2.5 L Active Medications Generic Name Dose Route Start Last Admin Trade Name Freq PRN Reason Stop Dose Admin Albuterol/Ipratropium 1 amp 03/25/20 14:00 03/27/20 08:08 Duoneb - NEB 1 amp TID@0800,1400,2000 [facility] Administration Atorvastatin Calcium 20 mg 03/23/20 22:00 03/26/20 21:34 Lipitor - PO 20 mg HS [facility] Administration Budesonide/Formoterol Fumarate 2 puff 03/23/20 22:00 03/27/20 09:58 Symbicort 80/4.5mcg - IH 2 puff BID [facility] Administration Digoxin 0.125 mg 03/24/20 10:00 03/27/20 09:57 Lanoxin - PO 0.125 mg DAILY [facility] Administration Doxycycline Hyclate 100 mg 03/23/20 18:00 03/27/20 09:58 Vibramycin - PO 100 mg BID@1000,1800 [facility] Administration Finasteride 5 mg 03/24/20 10:00 03/27/20 09:57 Proscar - PO 5 mg DAILY [facility] Administration Furosemide 40 mg 03/24/20 06:00 03/27/20 06:10 Lasix Injection - IVPUSH 40 mg BID@0600,1400 [facility] Administration Ceftriaxone Sodium 1 gm/ 50 mls @ 200 mls/hr 03/24/20 10:00 03/27/20 09:57 Dextrose IVPB 200 mls/hr DAILY [facility] Administration Protocol Lisinopril 10 mg 03/24/20 10:00 03/27/20 09:57 Prinivil PO 10 mg DAILY [facility] Administration Magnesium Oxide 400 mg 03/27/20 22:00 Mag-Ox - PO BID [facility] Metoprolol Tartrate 25 mg 03/23/20 22:00 03/26/20 21:35 Lopressor - PO Not Given HS [facility] Metoprolol Tartrate 50 mg 03/24/20 07:00 03/27/20 06:11 Lopressor - PO Not Given AM [facility] Tamsulosin HCl 0.4 mg 03/23/20 22:00 03/26/20 21:35 Flomax - PO 0.4 mg HS [facility] Administration Triamcinolone Acetonide 1 applic 03/23/20 22:00 03/27/20 10:01 Aristocort 0.1% Cream - TP 1 applic BID [facility] Administration Warfarin Sodium 4 mg 03/25/20 18:00 03/26/20 18:39 Coumadin - PO 4 mg DAILY@1800 [facility] Administration ASSESSMENT/PLAN: 85 year-old male with a PMH significant for HTN, HLD, CAD, diastolic heart failure, afib on coumadin, COPD and current every day smoker, severe psoriasis, BPH, lower GI bleed (11/2019), and recent admission for LLE cellulitis and CHF exacerbation (02/28-03/04/2020). Admitted for CHF exacerbation #Acute on chronic diastolic heart failure --continues to diurese well, renal function stable, continue Lasix IVP 40mg BID --continue digoxin (level therapeutic), lisinopril, metoprolol --cardiology following, plan for possible discharge Sunday or Sunday depending on clinical status; on discharge change PO diuretic to torsemide 40mg daily #Coronary artery disease --troponin neg x 3 --continue lisinopril, metoprolol, Lipitor #Atrial fibrillation --rate controlled, continue digoxin and metoprolol --INR 2.02 , continue coumadin at 4mg daily #r/o pneumonia --possible infiltrate on CXR but afebrile, no leukocytosis --given h/o COPD, active smoker, and this is third hospitalization in four months, will continue empiric antibiotic coverage --ceftriaxone (day #5), doxycycline for atypicals (day #5); complete 5 days of treatment and stop #Psoriasis --full body involvement, extensive plaquing, peeling, severely cracked skin on feet --no sign of infection --triamcinolone cream BID to affected areas and cover with stockinet #Hypertension --BP well-controlled --continue lisinopril, metoprolol #Hyperlipidemia --continue Lipitor #COPD --continue Symbicort, duonebs TID #BPH --continue finasteride, tamsulosin #Lower GI bleed --history of melena in November 2019 --colonoscopy revealed bleeding/cancerous polyp which was removed, reportedly not metastatic disease; no chemo or radiation --h/h stable, continue to monitor FEN Fluids: PO intake adequate Electrolytes: replete as indicated Nutrition: low sodium DVT prophylaxis: resume coumadin tonight Physical therapy Dispo: continues to require inpatient care. Full code. Visit type - Emergency Visit Emergency Visit: Yes ED Registration Date: 03/23/20 Care time: The patient presented to the Emergency Department on the above date and was hospitalized for further evaluation of their emergent condition. - New Patient This patient is new to me today: Yes Date on this admission: 03/27/20 - Critical Care Critical Care patient: No - Discharge Referral Referred to [facility] Med P.C.: No - Medication Review Med list reviewed for High Risk Meds patients 65 and older: No
[2020-03-27] MEDS: WARFARIN NA 2 MG TABLET PO SCH (17:04)
[2020-03-27] MEDS: MAGNESIUM OXIDE 400 MG TABLET (FP) PO SCH (21:19)
[2020-03-27] MEDS: METOPROLOL TARTRATE 25 MG TABLET (FP) PO SCH (21:19)
[2020-03-27] MEDS: ATORVASTATIN CA 20 MG TABLET (FP) PO SCH (21:19)
[2020-03-27] MEDS: TAMSULOSIN HCL 0.4 MG CAP PO SCH (21:19)
[2020-03-28] MEDS: FUROSEMIDE 40 MG/4 ML INJECTABLE VIAL IVPUSH SCH ×2 (06:49→07:56)
[2020-03-28] MEDS: METOPROLOL TARTRATE 50 MG TABLET (FP) PO SCH (06:49)
[2020-03-28 07:52] VITALS: BP 110/57; TEMP 97.6
[2020-03-28 09:02] LABS: BASO % 1.2 % (0-2.0); EOS % 4.2 % (0-4.5); HEMATOCRIT 32.8 % (35.4-49); HEMOGLOBIN 10.6 GM/dl (11.7-16.9); LYMPH % 18.2 % (8-40); MCH 29.5 pg (25.7-33.7); MCHC 32.2 g/dl (32.0-35.9); MEAN CELL VOLUME 91.7 fl (80-96); MEAN PLT VOLUME 7.2 fl (7.5-11.1); MONO % 8.1 % (3.8-10.2); NEUT % 68.3 % (42.8-82.8); PLATELET COUNT 273 K/MM3 (134-434); RBC 3.58 M/mm3 (4.00-5.60); RDW 14.8 % (11.9-15.9); WHITE BLOOD COUNT 7.8 K/mm3 (4.0-10.8)
[2020-03-28] MEDS ORDERED: DEXTROSE 5%-WATER - 50 ML IVPB ONE (09:10)
[2020-03-28] MEDS ORDERED: cefTRIAXone SODIUM 1 GM VIAL ONE (09:10)
[2020-03-28] MEDS: DIGOXIN 0.125 MG TABLET (FP) PO SCH (09:12)
[2020-03-28] MEDS: MAGNESIUM OXIDE 400 MG TABLET (FP) PO SCH (09:12)
[2020-03-28] MEDS: FINASTERIDE 5 MG TABLET (FP) PO SCH (09:12)
[2020-03-28] MEDS: CEFTRIAXONE 1 GM in DEXTROSE 5%-WATER - 50 ML IVPB SCH (09:12)
[2020-03-28] MEDS: DOXYCYCLINE HYCLATE 100 MG CAPSULE PO SCH (09:12)
[2020-03-28] MEDS: TRIAMCINOLONE ACET 0.1% CREAM 15 GM TUBE TP SCH (09:12)
[2020-03-28 09:13] VITALS: PULSE 87
[2020-03-28] MEDS: LISINOPRIL 10 MG TABLET PO SCH (09:13)
[2020-03-28] MEDS: ALBUTEROL SO4 2.5/IPRATROPIUM 0.5 INH SOL 3 ML VIAL.NEB. NEB SCH (09:13)
[2020-03-28 09:20] LABS: INR 2.16 (0.82-1.09); PROTHROMBIN TIME (PATIENT) 23.8 SEC (10.2-13.0)
[2020-03-28 09:25] LABS: ALBUMIN 2.3 g/dl (3.4-5.0); BILIRUBIN,TOTAL 1.3 mg/dl (0.2-1); CREATININE 1.2 mg/dl (0.55-1.3); MAGNESIUM 1.7 mg/dL (1.8-2.4); POTASSIUM 4.4 mmol/L (3.5-5.1); TOT PROT 5.1 g/dl (6.4-8.2)
--- NOTE | 2020-03-28 09:51 | DS ---
Physical Exam: SUBJECTIVE: Patient seen and examined, pt denies sob, chest pain, dizziness, headache, dizziness BLE edema improved. INR 2.16 will cont 4mg coumadin at home call and spoke to Garima, daughter, pt medically stable for dc. OBJECTIVE: Vital Signs Period Temp Pulse Resp BP Sys/Molina Pulse Ox Last 24 Hr 97.6 F-98.5 F 87-105 16-20 94-115/48-57 95-99 PHYSICAL EXAM GENERAL: The patient is awake, alert, and fully oriented, in no acute distress. HEAD: Normal with no signs of trauma. EYES: PERRL, extraocular movements intact, sclera anicteric, conjunctiva clear. ENT: Ears normal, nares patent, oropharynx clear without exudates, moist mucous membranes. NECK: Trachea midline, full range of motion, supple. LUNGS: Breath sounds equal, clear to auscultation bilaterally, no wheezes, no crackles, no accessory muscle use. HEART: Regular rate and rhythm, S1, S2 without murmur, rub or gallop. ABDOMEN: Soft, nontender, nondistended, normoactive bowel sounds, no guarding, no rebound, no hepatosplenomegaly, no masses. EXTREMITIES: 2+ pulses, warm, well-perfused, no edema. NEUROLOGICAL: Cranial nerves II through XII grossly intact. Normal speech, gait not observed. PSYCH: Normal mood, normal affect. SKIN: Extensive plaquing on arms, chest, back, legs, feet, underlying skin deeply erythematous LABS Laboratory Results - last 24 hr 03/27/20 03/27/20 03/28/20 09:30 09:30 06:00 WBC 7.8 RBC 3.58 L Hgb 10.6 L Hct 32.8 L MCV 91.7 MCH 29.5 MCHC 32.2 RDW 14.8 Plt Count 273 MPV 7.2 L Absolute Neuts (auto) 5.4 Neutrophils % 68.3 Lymphocytes % 18.2 Monocytes % 8.1 Eosinophils % 4.2 Basophils % 1.2 PT with INR 22.3 H INR 2.02 H Sodium 141 Potassium 4.0 Chloride 99 Carbon Dioxide 32 Anion Gap 10 BUN 23.0 H Creatinine 1.3 Est GFR (CKD-EPI)AfAm 58.48 Est GFR (CKD-EPI)NonAf 50.46 Random Glucose 114 H Calcium 8.1 L Magnesium 1.7 L Total Bilirubin 1.6 H AST 19 ALT 17 Alkaline Phosphatase 49 Total Protein 5.3 L Albumin 2.5 L 03/28/20 03/28/20 06:00 06:00 WBC RBC Hgb Hct MCV MCH MCHC RDW Plt Count MPV Absolute Neuts (auto) Neutrophils % Lymphocytes % Monocytes % Eosinophils % Basophils % PT with INR 23.8 H INR 2.16 H Sodium 142 Potassium 4.4 Chloride 100 Carbon Dioxide 32 Anion Gap 10 BUN 23.0 H Creatinine 1.2 Est GFR (CKD-EPI)AfAm 64.42 Est GFR (CKD-EPI)NonAf 55.58 Random Glucose 85 Calcium 8.0 L Magnesium 1.7 L Total Bilirubin 1.3 H AST 16 ALT 15 Alkaline Phosphatase 48 Total Protein 5.1 L Albumin 2.3 L HOSPITAL COURSE: Date of Admission:03/23/20 Date of Discharge: 03/28/20 85 year-old male with a PMH significant for HTN, HLD, CAD, diastolic heart failure, afib on coumadin, COPD and current every day smoker, severe psoriasis, BPH, lower GI bleed (11/2019), and recent admission for LLE cellulitis and CHF exacerbation (02/28-03/04/2020). Admitted for CHF exacerbation #Acute on chronic diastolic heart failure --continues to diurese well, renal function stable, continue Lasix IVP 40mg BID-completed --continue digoxin (level therapeutic), lisinopril, metoprolol --cardiology consult appreciated- changed to po toresemide 40 mg daily --Follow up with cardio 1 week #Coronary artery disease --troponin neg x 3 --continue lisinopril, metoprolol, Lipitor #Atrial fibrillation --rate controlled, continue digoxin and metoprolol --INR 2.16 , continue coumadin at 4mg daily UPON DISCHARGE, 5MG COUMADIN D/C. #r/o pneumonia --possible infiltrate on CXR but afebrile, no leukocytosis --given h/o COPD, active smoker, and this is third hospitalization in four months, will continue empiric antibiotic coverage --ceftriaxone (day #5), doxycycline for atypicals (day #5); complete 5 days of treatment and stop-COMPLETED TREATMENT #Psoriasis --full body involvement, extensive plaquing, peeling, severely cracked skin on feet --no sign of infection --triamcinolone cream BID to affected areas and cover with stockinet #Hypertension --BP well-controlled --continue lisinopril, metoprolol #Hyperlipidemia --continue Lipitor #COPD --continue Symbicort, duonebs TID #BPH --continue finasteride, tamsulosin #Lower GI bleed --history of melena in November 2019 --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 INR today 2.1 (03/28) COUMADIN DOSE HAS BEEN DECREASED TO 4MG DO NOT TAKE 5MG COUMADIN. [employer]WORK [employer] COUMADIN, DEMADEX AND MAG OXIDE FROM PHARMACY Disposition: HOME - Home Medications Comprehensive Discharge Medication List: Ambulatory Orders Atorvastatin Ca [Lipitor] 20 mg PO HS 01/10/15 Digoxin [Lanoxin -] 0.125 mg PO DAILY 01/10/15 Finasteride [Proscar] 5 mg PO DAILY 01/10/15 Metoprolol Tartrate [Lopressor -] 50 mg PO AM 01/10/15 Budesonide/Formeterol Fumarate [SYMBICORT 80/4.5mcg -] 2 puff IH BID #1 inhaler 07/19/17 Albuterol Sulfate Inhaler - [Ventolin HFA Inhaler -] 1 puff ACHS PRN 02/29/20 Lisinopril 10 mg PO DAILY 02/29/20 Tamsulosin HCl [Flomax] 0.4 mg PO HS 02/29/20 Acetaminophen [Tylenol .Regular Strength -] 650 mg PO Q6H PRN tablet 03/04/20 Metoprolol Tartrate [Lopressor -] 25 mg PO HS tablet 03/04/20 Triamcinolone 0.1% Cream [Aristocort 0.1% Cream -] 1 applic TP BID 03/23/20 Magnesium Oxide [Mag-Ox -] 400 mg PO BID #60 tablet 03/28/20 Torsemide [Demadex] 40 mg PO DAILY #60 tablet 03/28/20 Warfarin Na [Coumadin -] 4 mg PO DAILY@1800 #60 tablet 03/28/20 This patient is new to me today: No Emergency Visit: Yes ED Registration Date: 03/23/20 Care time: The patient presented to the Emergency Department on the above date and was hospitalized for further evaluation of their emergent condition. Critical Care patient: No - Discharge Referral Referred to [facility] No
[2020-03-28] MEDS: BUDESONIDE/FORMETEROL FUMARATE 80/4.5 mcg INHALER IH SCH (10:00)
== END 2020-03-28 13:00 | disposition home or self-care (01) | DRG 291 ==
LOC: FER 10:16 → FM/S 12:03
PROVIDERS: ADMIT Internal Medicine; ATTEND Nurse Practitioner Family
DX: I11.0 Hypertensive heart disease with heart failure (principal); J18.9 Pneumonia, unspecified organism; I48.20 Chronic atrial fibrillation, unspecified; J44.9 Chronic obstructive pulmonary disease, unspecified; I50.33 Acute on chronic diastolic (congestive) heart failure; E78.5 Hyperlipidemia, unspecified; L40.9 Psoriasis, unspecified; F17.210 Nicotine dependence, cigarettes, uncomplicated; I48.91 Unspecified atrial fibrillation; R33.9 Retention of urine, unspecified; I25.10 Atherosclerotic heart disease of native coronary artery without angina pectoris; N40.0 Benign prostatic hyperplasia without lower urinary tract symptoms; R73.03 Prediabetes; I45.10 Unspecified right bundle-branch block; Z79.01 Long term (current) use of anticoagulants
CPT/HCPCS: 36415; 71045-TC-FY; 80048; 80053; 80076; 80162; 81003; 81015; 82248; 83010; 83615; 83735; 83880; 84484; 85025; 85610; 85730; 87086; 93005; 93306-TC; 94640; 97116-GP; 97161-GP; 99285-25; U0003

== ENCOUNTER 2023-02-08 11:56 | Emergency (ER) | payer OTHER ==
[2023-02-08 12:11] VITALS: BP 119/79; PULSE 105; RESP 18; TEMP 98.2; BMI 22.8
[2023-02-08] MEDS ORDERED: CEPHALEXIN MONOHYDRATE 500 MG CAPSULE (UD) PO ONE (12:47)
[2023-02-08] MEDS ORDERED: CEPHALEXIN MONOHYDRATE 500 MG CAPSULE (UD) ONE (12:51)
== END 2023-02-08 12:58 | disposition home or self-care (01) ==
LOC: FER 11:56
DX: L40.9 Psoriasis, unspecified (principal); L29.9 Pruritus, unspecified; L03.116 Cellulitis of left lower limb
CPT/HCPCS: 99283-25